=== PATIENT | male | born 1950 | race Caucasian/White ===

== ENCOUNTER 2019-06-11 21:33 | Emergency (ER) | payer MEDICARE, MEDICAID, SELFPAY ==
--- NOTE | ~2019-06-11 | XR_ITS ---
XR chest 2V 06/11/2019 22:21 Indication: Cough and weakness Procedure: AP and lateral views of the chest Comparison: No prior studies for comparison. Findings: Cardiomegaly. There is a small amount of fluid in the fissure on the right. No focal pneumo kelsie, edema, pneumothorax. Impression: 1: Small right pleural effusion. 2: Cardiomegaly. Reviewed, dictated and finalized at location A. Impression: 1: Small right pleural effusion. 2: Cardiomegaly.
[2019-06-11 21:38] VITALS: BP 110/55; PULSE 63; PULSE 67; RESP 18; TEMP 36.4; O2SAT 98
--- NOTE | 2019-06-11 21:57 | ED.WEAKNESS ---
HPI - Weakness General Chief complaint: Weakness Stated complaint: retaining fluid Time Seen by Provider: 06/11/19 21:45 Source: patient, EMS and RN notes reviewed Mode of arrival: EMS Limitations: no limitations History of Present Illness HPI Narrative: Pt is a 69 y/o male presenting to the ED via EMS c/o generalized weakness. Pt reports he has been experiencing generalized weakness for not too long . Pt also reports cough, mild SOB, and mild VALENZUELA, but denies fever, CP, ABD pain, N/V, or diarrhea. Pt states his PCP is Dr. Moses. EMS reports the pt's custodial residence of [facility] have noticed the pt is acting strangely to the staff and is weaker than normal. Per EMS, the pt is normally oriented x2 and has frequent UTI's due to having a terminal make up operator Cazares in place. Pt is a poor historian. Onset (ago): unknown Location: generalized Associated symptoms: headaches (Mild) and other (Cough; Mild SOB) Related Data Home Medications Medication Instructions Recorded Confirmed acetaminophen 325 mg PO ONCE 06/11/19 amlodipine 5 mg PO BID 06/11/19 aripiprazole [Abilify] 2 mg PO DAILY 06/11/19 bisacodyl 5 mg PO ONCE 06/11/19 cholecalciferol (vitamin D3) unit 06/11/19 ferrous sulfate 325 mg PO DAILY 06/11/19 folic acid 1 mg PO DAILY 06/11/19 glucagon 1 mg SUBCUT Q20M PRN 06/11/19 insulin glargine [Lantus U-100 SUBCUT 06/11/19 Insulin] insulin lispro [Humalog U-100 06/11/19 Insulin] lisinopril 10 mg PO BID 06/11/19 melatonin 3 mg PO HS PRN 06/11/19 memantine-donepezil [Namzaric] PO 06/11/19 metoclopramide HCl 10 mg PO Q6H PRN 06/11/19 nitroglycerin 0.4 mg SUBLINGUAL ONCE 06/11/19 pregabalin [Lyrica] 200 mg PO HS 06/11/19 Allergies Allergy/AdvReac Type Severity Reaction Status Date / Time aspirin Allergy Unknown Verified 06/11/19 21:47 codeine Allergy Unknown Verified 06/11/19 21:47 ketoconazole Allergy Unknown Verified 06/11/19 21:47 Penicillins Allergy Unknown Verified 06/11/19 21:47 propoxyphene Allergy Unknown Verified 06/11/19 21:47 Review of Systems Review of Systems: All systems reviewed & are unremarkable except as noted in HPI and below Constitutional: Constitutional: Denies fever(s) and Reports weakness (Generalized) Cardiovascular: Cardiovascular: Denies chest pain Respiratory: Respiratory: Reports cough and Reports dyspnea (Mild) Gastrointestinal: Gastrointestinal: Denies abdominal pain, Denies diarrhea, Denies nausea and Denies vomiting Neurologic: Reports headache(s) (Mild) [facility] Past Medical History Medical History A-fib BPH (benign prostatic hyperplasia) CAD (coronary artery disease) CHF (congestive heart failure) CKD (chronic kidney disease) COPD (chronic obstructive pulmonary disease) Dementia Depression Cazares catheter in place GERD (gastroesophageal reflux disease) HLD (hyperlipidemia) HTN (hypertension) Peripheral neuropathy Type II diabetes mellitus Vitamin D deficiency Surgical History Surgical History History of cholecystectomy History of partial colectomy History of right below knee amputation Family History Family History Sibling Family history of thyroid disease Family history of obesity Cerebrovascular accident Family history of chronic obstructive pulmonary disease Family history of diabetes mellitus in first degree relative Father Family history of arthritis Family history of lung disease Mother Family history of heart disease in male family member before age 55 Social History Social History Smoking status: Never smoker Alcohol intake: never Gender identity (if verbalized by the patient): Male Exam Const: General: cooperative, no acute distress and alert Nutritional Appearance: well nourished Orientation/consciousness: patient oriented x3 L
--- NOTE | 2019-06-11 22:08 | ECG_ITS ---
Measurements Intervals [place] Rate: 61 P: 57 OK: 235 QRS: 34 QRSD: 128 T: 39 QT: 392 QTc: 397 Interpretive Statements SINUS RHYTHM WITH FIRST DEGREE AV BLOCK RSR' IN V1 OR V2, CONSIDER RIGHT VENTRICULAR HYPERTROPHY OR RIGHT VCD NONSPECIFIC T-WAVE ABNORMALITY- ANTERIOR LEADS ABNORMAL ECG Electronically Signed On 06-12-2019 8:27:57 CDT by Bridger Bro D.O.
[2019-06-11] MEDS: ACETAMINOPHEN 500 MG TABLET 1000 MG PO (22:29)
[2019-06-11 22:50] LABS: Basophils Percent Auto 0.5 % (0.2-1.2); Eosinophils Absolute Auto 0.2 K/mm3 (0-0.3); Eosinophils Percent Auto 2.4 % (0-4.4); Hematocrit 31.6 % (42.0-52.0); Hemoglobin 9.1 g/dL (14.0-18.0); Immature Granulocyte Absolute 0.17 K/mm3 (0.00-0.031); Lymphocytes Absolute Auto 1.58 K/mm3 (0.9-3.2); Mean Corpuscular HGB Conc 28.8 g/dl (32-36); Mean Corpuscular Hemoglobin 28.7 pg (26-34); Mean Corpuscular Volume 99.7 fl (80-100); Mean Platelet Volume 10.3 fl (7.4-10.4); Monocytes Absolute Auto 0.9 K/mm3 (0.1-0.6); Monocytes Percent Auto 10.3 % (2.6-8.5); Neutrophils Absolute Auto 5.5 K/mm3 (1.3-6.7); Neutrophils Percent Auto 65.8 % (45.5-73.1); Platelet Count Result 262 k/mm3 (150-375); Red Blood Count 3.17 M/mm3 (4.6-6.20); White Blood Count 8.3 K/mm3 (4.5-10.0)
[2019-06-11 22:55] LABS: Platelet Estimate Adequate (Adequate)
[2019-06-11 22:56] LABS: Hypochromasia 1+ (NORMAL)
[2019-06-11 22:57] VITALS: BP 115/77; PULSE 65; RESP 18; O2SAT 97
[2019-06-11 23:00] LABS: INR 1.1; Prothrombin Time 13.7 Seconds (11.1-14.7)
[2019-06-11 23:01] LABS: Lactic Acid Reflex 0.8 mmol/L (0.7-2.1); Partial Thromboplastin Time 36.6 SECONDS (22.3-36.8)
[2019-06-11 23:02] LABS: Alanine Aminotransferase 8 U/L (4-50); Albumin Level 3.6 g/dL (3.5-5.1); Alkaline Phosphatase 75 U/L (38-126); Aspartate Amino Transferase 11 U/L (17-59); Bilirubin,Total 0.3 mg/dL (0.2-1.3); Blood Urea Nitrogen 43 mg/dL (9-20); Calcium 9.2 mg/dL (8.4-10.2); Carbon Dioxide 23 mmol/L (22-30); Chloride 111 mmol/L (98-107); Estimated Glomerular Filt Rate 33; Glucose 61 mg/dL (75-110); Magnesium 2.4 mg/dL (1.6-2.3); Potassium 4.7 mmol/L (3.4-5.0); Sodium 143 mmol/L (137-145)
[2019-06-11 23:13] LABS: NT Pro B Type Natriuretic Pept 299 PG/ML (5-100); Troponin I < 0.012 ng/mL (0.000-0.034)
[2019-06-11 23:13] LABS: Add Urine Microscopic? YES; Appearance Urine Cloudy (Clear); Bacteria Urine 1+ /hpf; Bilirubin Urine Negative (Negative); Blood Urine 2+ (Negative); Color Urine Yellow (Yellow); Glucose Urine UA Negative (Negative); Ketones Urine Negative (Negative); Leukocyte Esterase Ur 3+ LEU/UL (Negative); Mucus Urine Rare /lpf; Nitrate Urine Negative (Negative); Protein Urine 3+ mg/dL (Negative); RBC Urine >75 /hpf (0-2); Specific Grav Ur 1.013 (1.001-1.035); Squamous Epithelial Cell Urine Many /hpf (Few); Urobilinogen Urine Negative mg/dL (<2.0); WBC Urine >75 /hpf
[2019-06-11 23:52] VITALS: BP 134/56; PULSE 60; RESP 18; O2SAT 96
[2019-06-12 01:18] VITALS: BP 145/54; PULSE 64; RESP 14; O2SAT 95
--- NOTE | 2019-06-12 03:33 | PC.NURSE ---
Called [facility] to transport patient back to [facility]....no truck available. Called [facility] to transport patient...ETA [id number]
[2019-06-12 04:12] VITALS: BP 142/72; PULSE 64; RESP 14; O2SAT 96
[2019-06-12 06:00] VITALS: BP 128/91; PULSE 63; RESP 18; O2SAT 95
[2019-06-12 07:06] VITALS: TEMP 36.4
[2019-06-12 07:46] VITALS: BP 156/64; PULSE 68; RESP 18; O2SAT 96
--- NOTE | 2019-06-12 10:06 | PC.NURSE ---
Patient transferred to [facility] via [facility] at this time.
== END 2019-06-12 10:07 ==
PROVIDERS: Emergency Provider Emergency Medicine
DX: T83.511A Infection and inflammatory reaction due to indwelling urethral catheter, initial encounter (principal); I48.91 Unspecified atrial fibrillation; E11.22 Type 2 diabetes mellitus with diabetic chronic kidney disease; I13.0 Hypertensive heart and chronic kidney disease with heart failure and stage 1 through stage 4 chronic kidney disease, or unspecified chronic kidney disease; N18.9 Chronic kidney disease, unspecified; N40.0 Benign prostatic hyperplasia without lower urinary tract symptoms; I25.10 Atherosclerotic heart disease of native coronary artery without angina pectoris; I50.9 Heart failure, unspecified; J44.9 Chronic obstructive pulmonary disease, unspecified; F03.90 Unspecified dementia, unspecified severity, without behavioral disturbance, psychotic disturbance, mood disturbance, and anxiety; K21.9 Gastro-esophageal reflux disease without esophagitis; E55.9 Vitamin D deficiency, unspecified; E11.42 Type 2 diabetes mellitus with diabetic polyneuropathy; Z90.49 Acquired absence of other specified parts of digestive tract; Z89.511 Acquired absence of right leg below knee; I44.0 Atrioventricular block, first degree; R94.31 Abnormal electrocardiogram [ECG] [EKG]; D64.9 Anemia, unspecified; Z79.4 Long term (current) use of insulin
CPT/HCPCS: 36415; 71046; 80053; 81001; 83605; 83735; 83880; 84443; 84484; 85025; 85610; 85730; 87077; 87086; 87088; 87186; 87804; 93005; 96365; 99284; A9270; J0696

== ENCOUNTER 2019-07-09 18:31 | Inpatient (IN) | payer MEDICARE, MEDICAID, SELFPAY ==
[2019-07-09] VITALS (8 sets, daily range): BP systolic 82–160; BP diastolic 45–144; PULSE 80–92; RESP 13–22; TEMP 36.6–37.7; O2SAT 92–100
--- NOTE | ~2019-07-09 | XR_ITS ---
EXAMINATION: XR chest 1V portable EXAM DATE: 07/09/2019 19:26 INDICATION: Shortness of air, fever and weakness. TECHNIQUE: Frontal and lateral projections of the chest obtained and reviewed. Comparison is made to prior examination from 06/11/2019. FINDINGS: The lungs are clear. There are no pleural effusions. Cardiac silhouette is prominent but magnified on this AP technique. Cardiac silhouette is stable in size compared to prior exam. There is no pneumothorax suspected. The bones and soft tissues are unremarkable. There is no significan t interval change. There are cholecystectomy clips. IMPRESSION: No acute cardiopulmonary findings. Reviewed, dictated and finalized at location A.
--- NOTE | 2019-07-09 18:47 | ED.SOB ---
HPI - SOB/Dyspnea General Chief Complaint: Fever Stated Complaint: sob Time Seen by Provider: 07/09/19 18:48 Source: patient and EMS Mode of arrival: EMS Limitations: dementia History of Present Illness HPI Narrative: The pt is a 69 y/o male who presents to the ED, via EMS, c/o SOB onset unknown. Per EMS, pt has been living with another resident in his room at [facility]. They note that he had a low oxygen saturation, and state that he is not on oxygen typically. Pt received 2L NC en route. The pt reports pain all over. Pt also noted as having a fever. The HPI is limited due to the pt's PMHx of dementia. MD elicited complaint: shortness of breath Pertinent past history: COPD Onset (ago): unknown Associated symptoms: fever (Per EMS) and other ( Pain all over ) Treatment prior to arrival: oxygen Related Data Home Medications Medication Instructions Recorded Confirmed acetaminophen 325 mg PO ONCE 06/11/19 amlodipine 5 mg PO BID 06/11/19 aripiprazole [Abilify] 2 mg PO DAILY 06/11/19 bisacodyl 5 mg PO ONCE 06/11/19 cholecalciferol (vitamin D3) unit 06/11/19 ferrous sulfate 325 mg PO DAILY 06/11/19 folic acid 1 mg PO DAILY 06/11/19 glucagon 1 mg SUBCUT Q20M PRN 06/11/19 insulin glargine [Lantus U-100 SUBCUT 06/11/19 Insulin] insulin lispro [Humalog U-100 06/11/19 Insulin] lisinopril 10 mg PO BID 06/11/19 melatonin 3 mg PO HS PRN 06/11/19 memantine-donepezil [Namzaric] PO 06/11/19 metoclopramide HCl 10 mg PO Q6H PRN 06/11/19 nitroglycerin 0.4 mg SUBLINGUAL ONCE 06/11/19 pregabalin [Lyrica] 200 mg PO HS 06/11/19 Allergies Allergy/AdvReac Type Severity Reaction Status Date / Time aspirin Allergy Unknown Verified 06/11/19 21:47 codeine Allergy Unknown Verified 06/11/19 21:47 ketoconazole Allergy Unknown Verified 06/11/19 21:47 Penicillins Allergy Unknown Verified 06/11/19 21:47 propoxyphene Allergy Unknown Verified 06/11/19 21:47 Review of Systems Review of Systems: ROS unobtainable: Yes other (Limited due to dementia. ) Constitutional: Constitutional: Reports fever(s) (Per EMS) Respiratory: Respiratory: Reports dyspnea Musculoskeletal: Musculoskeletal: Reports other (Pain all over ) [facility] Past Medical History Medical History A-fib BPH (benign prostatic hyperplasia) CAD (coronary artery disease) CHF (congestive heart failure) CKD (chronic kidney disease) COPD (chronic obstructive pulmonary disease) Dementia Depression Cazares catheter in place GERD (gastroesophageal reflux disease) HLD (hyperlipidemia) HTN (hypertension) Peripheral neuropathy Type II diabetes mellitus Vitamin D deficiency Surgical History Surgical History History of cholecystectomy History of partial colectomy History of right below knee amputation Social History Social History (Updated 07/09/19 @ 19:00 by Alphonse Smith) Smoking status: Never smoker Alcohol intake: never Additional living arrangements comments: [facility] Gender identity (if verbalized by the patient): Male Exam Narrative: Exam Narrative: GENERAL: ill-appearing, obese, and in no acute distress. HEAD: Normocephalic, atraumatic. ENT: Dry mucous membranes. CHEST: Clear to auscultation. No respiratory distress. HEART: Regular rate and rhythm. Normal peripheral pulses. ABDOMEN: Soft, nontender, nondistended. EXTREMITIES: Normal ROM of BUE, right BKA. SKIN: Warm, dry, no rash. NEURO: Alert and oriented x 3, confused about details as to why he is here. Course Course Emergency Course: Admit to hospitalist, cefepime ordered. 2L NS bolused. Vital Signs Vital signs: Vital Signs Temperature 99.9 F H 07/09/19 18:42 Pulse Rate 92 07/09/19 18:42 Respiratory Rate 20 07/09/19 18:42 Blood Pressure 160/144 H 07/09/19 18:42 Pulse Oximetry 98 07/09/19 18:42 Temperature 98.8 F 07/09/19
--- NOTE | 2019-07-09 19:00 | PC.NURSE ---
Assumed care of pt at this time. report from RUSLAN Velazquez
--- NOTE | 2019-07-09 19:05 | ECG_ITS ---
Measurements Intervals [place] Rate: 92 P: 40 DE: 218 QRS: 36 QRSD: 125 T: 36 QT: 346 QTc: 430 Interpretive Statements SINUS RHYTHM WITH FIRST DEGREE AV BLOCK INTRAVENTRICULAR CONDUCTION DELAY ABNORMAL ECG Electronically Signed On 07-09-2019 20:09:26 CDT by Bridger Bro D.O.
--- NOTE | 2019-07-09 19:37 | PC.NURSE ---
pt stuck 2x for IV no success. Blood draw at bedside at this time.
--- NOTE | 2019-07-09 20:00 | PC.NURSE ---
Pt little catheter clamped off to obtain urine sample.
[2019-07-09 20:03] LABS: Basophils Percent Auto 0.2 % (0.2-1.2); Hematocrit 33.5 % (42.0-52.0); Hemoglobin 9.7 g/dL (14.0-18.0); Immature Granulocyte Absolute 0.17 K/mm3 (0.00-0.031); Lymphocytes Absolute Auto 0.35 K/mm3 (0.9-3.2); Lymphocytes Percent Auto 2.1 % (18.3-44.2); Mean Corpuscular Hemoglobin 28.6 pg (26-34); Mean Corpuscular Volume 98.8 fl (80-100); Mean Platelet Volume 11.2 fl (7.4-10.4); Monocytes Absolute Auto 0.9 K/mm3 (0.1-0.6); Monocytes Percent Auto 5.6 % (2.6-8.5); Neutrophils Absolute Auto 15.3 K/mm3 (1.3-6.7); Neutrophils Percent Auto 91.1 % (45.5-73.1); Platelet Count Result 251 k/mm3 (150-375); Red Blood Count 3.39 M/mm3 (4.6-6.20); Red Cell Distribution Width 14.5 % (11.5-14.5); White Blood Count 16.8 K/mm3 (4.5-10.0)
[2019-07-09 20:17] LABS: Alanine Aminotransferase 8 U/L (4-50); Albumin Level 3.4 g/dL (3.5-5.1); Alkaline Phosphatase 78 U/L (38-126); Aspartate Amino Transferase 22 U/L (17-59); Bilirubin,Total 0.2 mg/dL (0.2-1.3); Blood Urea Nitrogen 57 mg/dL (9-20); Calcium 8.6 mg/dL (8.4-10.2); Carbon Dioxide 16 mmol/L (22-30); Chloride 114 mmol/L (98-107); Estimated Glomerular Filt Rate 24; Glucose 201 mg/dL (75-110); Potassium 5.3 mmol/L (3.4-5.0); Sodium 142 mmol/L (137-145)
--- NOTE | 2019-07-09 20:20 | PC.NURSE ---
Pt has no urine output at this time. EDP notified.
[2019-07-09] MEDS: SODIUM CHLORIDE 0.9% IV 1,000 ML 999 ML IV CONT ×2 (20:25→21:14)
--- NOTE | 2019-07-09 21:09 | PC.NURSE ---
No urine produced at this time. edp notified
[2019-07-09 22:44] LABS: Add Urine Microscopic? YES; Appearance Urine Turbid (Clear); Bacteria Urine 3+ /hpf; Bilirubin Urine Negative (Negative); Blood Urine 3+ (Negative); Color Urine Yellow (Yellow); Glucose Urine UA Negative (Negative); Ketones Urine Trace mg/dL (Negative); Leukocyte Esterase Ur 3+ LEU/UL (Negative); Mucus Urine Few /lpf; Nitrate Urine Negative (Negative); Protein Urine 3+ mg/dL (Negative); RBC Urine >75 /hpf (0-2); Specific Grav Ur 1.017 (1.001-1.035); Squamous Epithelial Cell Urine Many /hpf (Few); Urobilinogen Urine Negative mg/dL (<2.0); WBC Urine >75 /hpf
[2019-07-10 00:12] VITALS: BP 103/48; PULSE 75; RESP 15; O2SAT 93
--- NOTE | 2019-07-10 00:38 | ADMGEN ---
This patient, Baljeet Birmingham, was admitted to Medical Room 248-. Patient/family oriented to hospital policies and general routines including ID bracelet, bed and alarms, visiting hours, pain management, procedures, bathroom and other care routines, personal items, smoking policy, room service/diet, and visiting hours. Valuables list has been completed. Information on how to activate the Rapid Response Team has been discussed. Patient/Family are encouraged to report perceived risks to care and to ask questions if they do not understand what they are told or what they should do.
[2019-07-10] MEDS: SODIUM CHLORIDE 0.9% IV 1,000 ML 125 ML IV CONT ×2 (00:41→07:58)
[2019-07-10 00:46] VITALS: BP 106/43; PULSE 74; RESP 12; TEMP 36.6; O2SAT 96; BMI 42.7
--- NOTE | 2019-07-10 01:01 | PM.IMHP ---
H&P: HPI History of Present Illness Chief complaint: Fever and shortness of breath Narrative: Date and time of patient contact: 07/10/2019 at 1:50 a.m. Baljeet Birmingham is a 69 year old male with a past medical history of dementia, insulin-dependent diabetes, chronic indwelling Cazares catheter who presented to the ER from [facility] via EMS due to low oxygen saturations and fever. The patient's temperature on arrival to the ER was 99.9?. To the ER his blood pressure was elevated to 160/144 but repeat blood pressure was as low as 82/58. However after 2 L of isotonic fluids the patient's systolic blood pressure returned to the 100s to 110s. When the patient arrived to the ER he had a Cazares catheter in place from the care home. But the patient was not having any urine output from the Cazares catheter. The ER physician ordered the Cazares catheter to be exchanged at which time the patient had adequate urine output. The patient had been evaluated in the ER on 06/11/2019 for generalized weakness and was diagnosed with a urinary tract infection. His urine culture at that time grew out Providencia stuartii resistant to ampicillin, amoxicillin, cefazolin, Cipro, Levaquin, gentamicin, nitrofurantoin, and tobramycin. It was indeterminate to Rocephin and imipenem. There is sensitive to Rocephin, Zosyn and Bactrim. The patient had been discharged from the ER back to the care home on cefdinir 300 mg b.i.d. for 10 days. EMS/care home had reported a low SpO2 at the time of evaluation. However when the patient arrived to the ER the patient was satting 96% on room air and has not been hypoxic since arrival. The patient is only oriented to person at the time of my evaluation is unable to provide any further history. Source of information is ER records and past medical records. Home medications have yet to be reconciled. The list that was sent to the ER from the care home was misplaced and the fax machine at the care home as currently broke. Review of Systems Review of Systems: ROS unobtainable: Yes unobtainable due to mental status PMFSH Past Medical History Medical History (Updated 07/10/19 @ 06:17 by Sanjuanita Brewster DO) Atrial fibrillation BPH (benign prostatic hyperplasia) CAD (coronary artery disease) CHF (congestive heart failure) Chronic indwelling Cazares catheter CKD (chronic kidney disease) With baseline creatinine outside labs of 1.8 COPD (chronic obstructive pulmonary disease) Dementia Depression Essential hypertension GERD (gastroesophageal reflux disease) Hyperlipidemia Peripheral neuropathy Type II diabetes mellitus Vitamin D deficiency Surgical History Surgical History History of cholecystectomy History of partial colectomy History of right below knee amputation Family History Family History (Updated 07/10/19 @ 01:36 by Sanjuanita Brewster DO) Sibling Cerebrovascular accident Diabetes mellitus COPD (chronic obstructive pulmonary disease) Obesity Thyroid disease Father Lung disease Mother Heart disease Social History Social History (Updated 07/10/19 @ 06:09 by Sanjuanita Brewster DO) Social History: Primary care physician: Dr. Savage Moses Code status: Full code per EMR Smoking packs per day: 1 Smoking cigarettes per day: 20.0 Years smoked: 30 Smoking pack-years: 30.00 Smoking status: Former smoker Alcohol intake: unknown Substance use: unknown Substance use type: does not use Living arrangements: care home Additional living arrangements comments: [facility] Gender identity (if verbalized by the patient): Male Spiritual care concerns: No Meds Home Medications and Allergies Home Medications Medication Instructions Recorded Confirmed Type acetaminophen 325 mg PO ONCE 06/11/19 History amlodipine 5 mg PO BID 06/11/19 History aripiprazole [Abilify] 2 mg PO DAILY
--- NOTE | 2019-07-10 02:02 | PC.NURSE ---
Med list is missing in patients packet from ER. Called ER nurse Vee and she is unsure where med list went. Vee said Day shift Nurse entered meds and had patients med list. Spoke with ER charge nurse and she is going to look for it. At this time no med list has been found. Called [facility] and there fax machine is down at this time. Will call shelter in AM to see if Fax machine is working.
[2019-07-10 06:00] VITALS: BP 116/44; PULSE 63; RESP 16; TEMP 36.2; O2SAT 95
[2019-07-10 06:17] LABS: Glucose Point of Care 114 (65-105)
[2019-07-10 08:02] LABS: Glucose Point of Care 106 (65-105)
[2019-07-10 08:53] LABS: Hematocrit 30.9 % (42.0-52.0); Hemoglobin 8.9 g/dL (14.0-18.0); Mean Corpuscular HGB Conc 28.8 g/dl (32-36); Mean Corpuscular Hemoglobin 28.9 pg (26-34); Mean Corpuscular Volume 100.3 fl (80-100); Mean Platelet Volume 11.6 fl (7.4-10.4); Platelet Count Result 223 k/mm3 (150-375); Red Blood Count 3.08 M/mm3 (4.6-6.20); Red Cell Distribution Width 14.9 % (11.5-14.5); White Blood Count 13.4 K/mm3 (4.5-10.0)
[2019-07-10 09:04] LABS: Blood Urea Nitrogen 59 mg/dL (9-20); Calcium 8.1 mg/dL (8.4-10.2); Carbon Dioxide 19 mmol/L (22-30); Chloride 115 mmol/L (98-107); Estimated CRCL calculation 41 ml/min; Estimated Glomerular Filt Rate 28; Glucose 118 mg/dL (75-110); Magnesium 2.1 mg/dL (1.6-2.3); Potassium 4.9 mmol/L (3.4-5.0); Sodium 141 mmol/L (137-145)
[2019-07-10] MEDS: ACETAMINOPHEN 325 MG TABLET 650 MG PO (09:36)
[2019-07-10] MEDS: FUROSEMIDE INJ 40 MG/4 ML VIAL 20 MG IV PUSH (10:46)
[2019-07-10 11:28] LABS: Glucose Point of Care 187 (65-105)
--- NOTE | 2019-07-10 11:37 | PM.IMPN ---
Progress Note: A&P Assessment and Plan (1) Urinary tract infection: Qualifiers: Hematuria presence: without hematuria Urinary tract infection type: site unspecified Qualified Code(s): N39.0 - Urinary tract infection, site not specified Code(s): N39.0 - Urinary tract infection, site not specified Status: Acute Assessment and Plan: The patient's last urine culture grew out bacteria that was multidrug resistant. Patient has been placed on cefepime as this was the only and the bacteria was sensitive to that did not conflict with the patient's allergies. 07/10/19 11:37 patient is 69-year-old male a resident of [facility] morbidly obese with history of insulin-dependent diabetes, dementia, chronic Cazares catheter, patient was sent to emergency department with complaint of shortness of breath and desaturation, is a poor historian denies any with cough shortness of breath presently, and recently was found to have UTI with multidrug resistant bacteria currently patient is suspected to have a UTI and patient is started on Cefepim this is the only antibiotic is compatible with his allergies and resistant profile, clinically patient though denies any cough or shortness of breath lung sounds quite wet, he has acute on chronic kidney disease with stage III, will will gently diurese him with IV Lasix 20 mg and closely monitor his kidney function input and output, patient chest x-ray does not show any cardiopulmonary pathology will continue to monitor patient will benefit from PT OT and further recommendation to follow (2) Acute renal failure superimposed on stage 3 chronic kidney disease: Code(s): N17.9 - Acute kidney failure, unspecified; N18.3 - Chronic kidney disease, stage 3 (moderate) Status: Acute Assessment and Plan: The patient received 2 L of isotonic fluids in the ER due to hypotension that subsequently resolved. Will continue gentle IV fluid hydration and repeat BMP this a.m., plan is above (3) Diabetes mellitus with hyperglycemia: Code(s): E11.65 - Type 2 diabetes mellitus with hyperglycemia Status: Acute Assessment and Plan: Will place patient on moderate sliding scale insulin with Accu-Cheks AC/HS. The patient's home medications still need to be reviewed., will continue home regimen and monitor Subjective Date/time seen: 07/10/19 11:37 patient is 69-year-old male a resident of [facility] morbidly obese with history of insulin-dependent diabetes, dementia, chronic Cazares catheter, patient was sent to emergency department with complaint of shortness of breath and desaturation, is a poor historian denies any with cough shortness of breath presently, and recently was found to have UTI with multidrug resistant bacteria currently patient is suspected to have a UTI and patient is started on Cefepim this is the only antibiotic is compatible with his allergies and resistant profile, clinically patient though denies any cough or shortness of breath lung sounds quite wet, he has acute on chronic kidney disease with stage III, will will gently diurese him with IV Lasix 20 mg and closely monitor his kidney function input and output, patient chest x-ray does not show any cardiopulmonary pathology will continue to monitor patient will benefit from PT OT and further recommendation to follow Review of Systems Review of Systems: All systems reviewed & are unremarkable except as noted in HPI and below Exam Narrative: Exam Narrative: Morbidly obese Const: General: comfortable and no acute distress HENMT: General nose exam: Normal nares present Mouth: Yes moist mucous membranes Eyes: General: appearance normal, both eyes and all related structures Sclera: sclerae normal Neck: Neck: supple Resp: Other: Bilateral fair air entry with rales and rhonchi Cardio: Rate: regular rate Rhythm: regular rhythm GI: Auscultation: normal bowel sounds Skin: General skin exam: normal color
[2019-07-10] MEDS: PREGABALIN 50 MG CAPSULE 200 MG PO ×2 (11:54→21:13)
[2019-07-10] MEDS: MORPHINE SULFATE 4 MG/ML INJ IV PUSH (12:51)
[2019-07-10 14:00] VITALS: BP 126/41; PULSE 59; RESP 20; TEMP 36.5; O2SAT 95
[2019-07-10] MEDS: SENNA/DOCUSATE SODIUM TABLET 1 TAB PO (16:16)
[2019-07-10] MEDS: OMEGA 3 POLYUNSAT FATTY ACIDS 1 GM CAP PO (16:16)
[2019-07-10 16:26] LABS: Glucose Point of Care 150 (65-105)
[2019-07-10] MEDS: RIVAROXABAN 15 MG TABLET PO (17:01)
[2019-07-10] MEDS: TAMSULOSIN HCL 0.4 MG CAPSULE PO (17:01)
[2019-07-10] MEDS: MELATONIN 3 MG TABLET PO (21:13)
[2019-07-10] MEDS: INSULIN GLARGINE (*BKC) 100 UNITS/ML 32 UNITS SUB-Q (21:15)
[2019-07-10] MEDS: ARIPIPRAZOLE 2 MG TABLET 1 MG PO (21:18)
[2019-07-10 21:36] VITALS: BP 94/45; PULSE 63; RESP 20; TEMP 36.2; O2SAT 95
[2019-07-10 21:37] LABS: Glucose Point of Care 173 (65-105)
[2019-07-11 05:27] LABS: Blood Urea Nitrogen 55 mg/dL (9-20); Calcium 7.8 mg/dL (8.4-10.2); Carbon Dioxide 21 mmol/L (22-30); Chloride 112 mmol/L (98-107); Estimated CRCL calculation 45 ml/min; Estimated Glomerular Filt Rate 32; Glucose 118 mg/dL (75-110); Potassium 4.6 mmol/L (3.4-5.0); Sodium 138 mmol/L (137-145)
[2019-07-11 05:52] VITALS: BP 98/53; PULSE 60; RESP 16; TEMP 36.1; O2SAT 95
[2019-07-11 08:00] VITALS: PULSE 64; RESP 18; O2SAT 95
[2019-07-11] MEDS: FUROSEMIDE INJ 40 MG/4 ML VIAL 20 MG IV PUSH (08:06)
[2019-07-11] MEDS: SENNA/DOCUSATE SODIUM TABLET 1 TAB PO ×2 (08:10→16:52)
[2019-07-11] MEDS: SERTRALINE HCL 50 MG TABLET 200 MG PO (08:10)
[2019-07-11] MEDS: ASCORBIC ACID 500 MG TABLET PO (08:10)
[2019-07-11] MEDS: FOLIC ACID 1 MG TABLET PO (08:10)
[2019-07-11] MEDS: OMEGA 3 POLYUNSAT FATTY ACIDS 1 GM CAP PO ×2 (08:10→16:52)
[2019-07-11] MEDS: FERROUS SULFATE 324 MG TABLET PO (08:10)
[2019-07-11] MEDS: CHOLECALCIFEROL 1,000 UNIT TABLET 1000 UNITS PO (08:11)
[2019-07-11] MEDS: polyethylene glycoL 3350 17 GM POWD.PACK PO (08:12)
[2019-07-11 08:19] VITALS: BP 117/47; PULSE 64; RESP 18; O2SAT 95
[2019-07-11] MEDS: AMLODIPINE BESYLATE 5 MG TABLET 10 MG PO (08:21)
[2019-07-11] MEDS: ACETAMINOPHEN 325 MG TABLET 650 MG PO ×2 (08:21→14:14)
[2019-07-11] MEDS: lisinopriL 10 MG TABLET PO (08:22)
[2019-07-11] MEDS: PREGABALIN 50 MG CAPSULE 200 MG PO ×2 (09:56→21:26)
[2019-07-11 11:30] LABS: Glucose Point of Care 102 (65-105)
[2019-07-11 11:31] LABS: Glucose Point of Care 155 (65-105)
--- NOTE | 2019-07-11 12:32 | PM.IMPN ---
Progress Note: A&P Assessment and Plan (1) Urinary tract infection: Qualifiers: Hematuria presence: without hematuria Urinary tract infection type: site unspecified Qualified Code(s): N39.0 - Urinary tract infection, site not specified Code(s): N39.0 - Urinary tract infection, site not specified Status: Acute Assessment and Plan: The patient's last urine culture grew out bacteria that was multidrug resistant. Patient has been placed on cefepime as this was the only and the bacteria was sensitive to that did not conflict with the patient's allergies. 07/10/19 11:37 patient is 69-year-old male a resident of shelter morbidly obese with history of insulin-dependent diabetes, dementia, chronic Cazares catheter, patient was sent to emergency department with complaint of shortness of breath and desaturation, is a poor historian denies any with cough shortness of breath presently, and recently was found to have UTI with multidrug resistant bacteria currently patient is suspected to have a UTI and patient is started on Cefepim this is the only antibiotic is compatible with his allergies and resistant profile, on 07/10 clinically patient though denies any cough or shortness of breath lung sounds quite wet, he has acute on chronic kidney disease with stage III, will gently diurese him with IV Lasix 20 mg and closely monitored his kidney function input and output, patient chest x-ray does not show any cardiopulmonary pathology will continue to monitor patient will benefit from PT OT and further recommendation to follow, today patient still somewhat congested not as bad as yesterday will give him 1 time dose of IV Lasix 20 mg continue to monitor I&Os, will reassess him tomorrow and further recommendation to follow, his preliminary urine culture is growing gram-negative bacilli will continue present management and follow up on sensitivity identification (2) Acute renal failure superimposed on stage 3 chronic kidney disease: Code(s): N17.9 - Acute kidney failure, unspecified; N18.3 - Chronic kidney disease, stage 3 (moderate) Status: Acute Assessment and Plan: The patient received 2 L of isotonic fluids in the ER due to hypotension that subsequently resolved. Will continue gentle IV fluid hydration and repeat BMP this a.m., plan is above (3) Diabetes mellitus with hyperglycemia: Code(s): E11.65 - Type 2 diabetes mellitus with hyperglycemia Status: Acute Assessment and Plan: Will place patient on moderate sliding scale insulin with Accu-Cheks AC/HS. The patient's home medications still need to be reviewed., will continue home regimen and monitor Subjective Date/time seen: 07/10/19 11:37 patient is 69-year-old male a resident of shelter morbidly obese with history of insulin-dependent diabetes, dementia, chronic Cazares catheter, patient was sent to emergency department with complaint of shortness of breath and desaturation, is a poor historian denies any with cough shortness of breath presently, and recently was found to have UTI with multidrug resistant bacteria currently patient is suspected to have a UTI and patient is started on Cefepim this is the only antibiotic is compatible with his allergies and resistant profile, on 07/10 clinically patient though denies any cough or shortness of breath lung sounds quite wet, he has acute on chronic kidney disease with stage III, will gently diurese him with IV Lasix 20 mg and closely monitored his kidney function input and output, patient chest x-ray does not show any cardiopulmonary pathology will continue to monitor patient will benefit from PT OT and further recommendation to follow, today patient still somewhat congested not as bad as yesterday will give him 1 time dose of IV Lasix 20 mg continue to monitor I&Os, will reassess him tomorrow and further recommendation to follow, his preliminary urine culture is growing gram-negative bacilli will continue p
[2019-07-11 14:00] VITALS: BP 136/54; PULSE 67; RESP 18; TEMP 36.4; O2SAT 98
[2019-07-11 16:30] LABS: Glucose Point of Care 139 (65-105)
[2019-07-11] MEDS: TAMSULOSIN HCL 0.4 MG CAPSULE PO (16:52)
[2019-07-11] MEDS: RIVAROXABAN 15 MG TABLET PO (16:52)
[2019-07-11] MEDS: MORPHINE SULFATE 4 MG/ML INJ IV PUSH (16:59)
[2019-07-11] MEDS: ARIPIPRAZOLE 2 MG TABLET 1 MG PO (21:23)
[2019-07-11] MEDS: MELATONIN 3 MG TABLET PO (21:26)
[2019-07-11] MEDS: INSULIN GLARGINE (*BKC) 100 UNITS/ML 32 UNITS SUB-Q (21:27)
[2019-07-11 21:49] LABS: Glucose Point of Care 131 (65-105)
[2019-07-11 22:00] VITALS: BP 129/52; PULSE 57; RESP 18; TEMP 36.6; O2SAT 97
[2019-07-12 05:38] LABS: Blood Urea Nitrogen 49 mg/dL (9-20); Calcium 8.3 mg/dL (8.4-10.2); Carbon Dioxide 22 mmol/L (22-30); Chloride 111 mmol/L (98-107); Estimated CRCL calculation 52 ml/min; Estimated Glomerular Filt Rate 38; Glucose 102 mg/dL (75-110); Potassium 4.7 mmol/L (3.4-5.0); Sodium 138 mmol/L (137-145)
[2019-07-12 05:59] VITALS: BP 122/50; PULSE 57; RESP 18; TEMP 36.4; O2SAT 98
[2019-07-12 07:35] LABS: Glucose Point of Care 107 (65-105)
[2019-07-12 08:00] VITALS: PULSE 57; RESP 18; O2SAT 98
[2019-07-12] MEDS: polyethylene glycoL 3350 17 GM POWD.PACK PO (08:06)
[2019-07-12] MEDS: AMLODIPINE BESYLATE 5 MG TABLET 10 MG PO (08:06)
[2019-07-12] MEDS: FOLIC ACID 1 MG TABLET PO (08:07)
[2019-07-12] MEDS: SENNA/DOCUSATE SODIUM TABLET 1 TAB PO ×2 (08:07→17:05)
[2019-07-12] MEDS: lisinopriL 10 MG TABLET PO (08:07)
[2019-07-12] MEDS: ASCORBIC ACID 500 MG TABLET PO (08:07)
[2019-07-12] MEDS: CHOLECALCIFEROL 1,000 UNIT TABLET 1000 UNITS PO (08:07)
[2019-07-12] MEDS: SERTRALINE HCL 50 MG TABLET 200 MG PO (08:07)
[2019-07-12] MEDS: PREGABALIN 50 MG CAPSULE 200 MG PO ×2 (08:14→20:47)
[2019-07-12] MEDS: OMEGA 3 POLYUNSAT FATTY ACIDS 1 GM CAP PO ×2 (08:40→17:05)
--- NOTE | 2019-07-12 10:30 | PCSTNOTE ---
The bedside eval was not able to be completed on 07/11/19.
[2019-07-12] MEDS: MORPHINE SULFATE 4 MG/ML INJ IV PUSH (10:50)
[2019-07-12] MEDS: ONDANSETRON INJ 4 MG/2 ML VIAL IV PUSH (10:50)
[2019-07-12 11:27] LABS: Glucose Point of Care 135 (65-105)
[2019-07-12] MEDS: FUROSEMIDE INJ 40 MG/4 ML VIAL 20 MG IV PUSH (11:30)
--- NOTE | 2019-07-12 11:36 | P.CDI_ITS ---
CDI Query Clarification Request -UTI has been documented -Chronic indwelling little catheter has been documented -07/08 urine culture growing >100,000 E Coli, ESBL Please clarify if UTI is: * Due to chronic indwelling catheter * Not due to chronic indwelling catheter * Unable to determine <Linda Leonard RN - Last Filed: 07/12/19 11:38>
--- NOTE | 2019-07-12 11:36 | WPDCDIQUERY2 ---
CDI Query Clarification Request -UTI has been documented -Chronic indwelling little catheter has been documented -07/08 urine culture growing >100,000 E Coli, ESBL Please clarify if UTI is: Due to chronic indwelling catheter Not due to chronic indwelling catheter Unable to determine <Linda Leonard RN - Last Filed: 07/12/19 11:38>
[2019-07-12] MEDS: LIDOCAINE HCL 1% LOCAL INJ 2 ML AMPUL 5 ML INFILTRATE (13:30)
[2019-07-12 14:00] VITALS: BP 120/50; PULSE 65; RESP 16; TEMP 36.1; O2SAT 97
--- NOTE | 2019-07-12 15:11 | PM.DS ---
DS: Diagnosis Admitting Diagnosis Admitting Diagnosis: Urinary tract infection, site not specified Discharge Diagnosis (1) Urinary tract infection: Qualifiers: Hematuria presence: without hematuria Urinary tract infection type: site unspecified Qualified Code(s): N39.0 - Urinary tract infection, site not specified Code(s): N39.0 - Urinary tract infection, site not specified Status: Acute Assessment and Plan: The patient's last urine culture grew out bacteria that was multidrug resistant. Patient has been placed on cefepime as this was the only and the bacteria was sensitive to that did not conflict with the patient's allergies. 07/10/19 11:37 patient is 69-year-old male a resident of residential morbidly obese with history of insulin-dependent diabetes, dementia, chronic Cazares catheter, patient was sent to emergency department with complaint of shortness of breath and desaturation, is a poor historian denies any with cough shortness of breath presently, and recently was found to have UTI with multidrug resistant bacteria currently patient is suspected to have a UTI and patient is started on Cefepim this is the only antibiotic is compatible with his allergies and resistant profile, on 07/10 clinically patient though denies any cough or shortness of breath lung sounds quite wet, he has acute on chronic kidney disease with stage III, will gently diurese him with IV Lasix 20 mg and closely monitored his kidney function input and output, patient chest x-ray does not show any cardiopulmonary pathology will continue to monitor patient will benefit from PT OT and further recommendation to follow, today patient still somewhat congested not as bad as yesterday will give him 1 time dose of IV Lasix 20 mg continue to monitor I&Os, will reassess him tomorrow and further recommendation to follow, his preliminary urine culture is growing gram-negative bacilli will continue present management and follow up on sensitivity identification (2) Acute renal failure superimposed on stage 3 chronic kidney disease: Code(s): N17.9 - Acute kidney failure, unspecified; N18.3 - Chronic kidney disease, stage 3 (moderate) Status: Acute Assessment and Plan: The patient received 2 L of isotonic fluids in the ER due to hypotension that subsequently resolved. Will continue gentle IV fluid hydration and repeat BMP this a.m., plan is above (3) Diabetes mellitus with hyperglycemia: Code(s): E11.65 - Type 2 diabetes mellitus with hyperglycemia Status: Acute Assessment and Plan: Will place patient on moderate sliding scale insulin with Accu-Cheks AC/HS. The patient's home medications still need to be reviewed., will continue home regimen and monitor DS: Summary Hospital Course Reason for hospitalization: Baljeet Birmingham is a 69 year old male with a past medical history of dementia, insulin-dependent diabetes, chronic indwelling Cazares catheter who presented to the ER from [facility] via EMS due to low oxygen saturations and fever. The patient's temperature on arrival to the ER was 99.9?. To the ER his blood pressure was elevated to 160/144 but repeat blood pressure was as low as 82/58. However after 2 L of isotonic fluids the patient's systolic blood pressure returned to the 100s to 110s. When the patient arrived to the ER he had a Cazares catheter in place from the residential. But the patient was not having any urine output from the Cazares catheter. The ER physician ordered the Cazares catheter to be exchanged at which time the patient had adequate urine output. The patient had been evaluated in the ER on 06/11/2019 for generalized weakness and was diagnosed with a urinary tract infection. His urine culture at that time grew out Providencia stuartii resistant to ampicillin, amoxicillin, cefazolin, Cipro, Levaquin, gentamicin, nitrofurantoin, and tobramycin. It was indeterminate to Rocephin and imipenem. There
[2019-07-12] MEDS: RIVAROXABAN 15 MG TABLET PO (17:05)
[2019-07-12] MEDS: TAMSULOSIN HCL 0.4 MG CAPSULE PO (17:05)
[2019-07-12 17:53] LABS: Glucose Point of Care 197 (65-105)
[2019-07-12] MEDS: ARIPIPRAZOLE 2 MG TABLET 1 MG PO (20:47)
[2019-07-12] MEDS: MELATONIN 3 MG TABLET PO (20:47)
[2019-07-12] MEDS: INSULIN GLARGINE (*BKC) 100 UNITS/ML 32 UNITS SUB-Q (20:57)
[2019-07-12 22:22] LABS: Glucose Point of Care 139 (65-105)
== END 2019-07-12 21:45 | DRG 699 ==
LOC: ANHED 23:23 → ANH2MED 23:53
PROVIDERS: Emergency Medicine; Admitting Provider Internal Medicine; Emergency Provider Internal Medicine; Visit Provider Family Medicine
DX: T83.511A Infection and inflammatory reaction due to indwelling urethral catheter, initial encounter (principal); Z16.24 Resistance to multiple antibiotics; N17.9 Acute kidney failure, unspecified; I13.0 Hypertensive heart and chronic kidney disease with heart failure and stage 1 through stage 4 chronic kidney disease, or unspecified chronic kidney disease; Z68.41 Body mass index [BMI] 40.0-44.9, adult; I48.20 Chronic atrial fibrillation, unspecified; N39.0 Urinary tract infection, site not specified; E11.22 Type 2 diabetes mellitus with diabetic chronic kidney disease; I50.9 Heart failure, unspecified; N18.3 Chronic kidney disease, stage 3 (moderate); E11.65 Type 2 diabetes mellitus with hyperglycemia; E11.42 Type 2 diabetes mellitus with diabetic polyneuropathy; E66.01 Morbid (severe) obesity due to excess calories; F03.90 Unspecified dementia, unspecified severity, without behavioral disturbance, psychotic disturbance, mood disturbance, and anxiety; N40.0 Benign prostatic hyperplasia without lower urinary tract symptoms; I25.10 Atherosclerotic heart disease of native coronary artery without angina pectoris; J44.9 Chronic obstructive pulmonary disease, unspecified; K21.9 Gastro-esophageal reflux disease without esophagitis; E78.5 Hyperlipidemia, unspecified; E55.9 Vitamin D deficiency, unspecified; Z96.651 Presence of right artificial knee joint; Z90.49 Acquired absence of other specified parts of digestive tract
CPT/HCPCS: 36415; 36569; 71045; 80048; 80053; 81001; 83605; 83735; 85025; 85027; 87040; 87077; 87086; 87088; 87186; 87804; 92610; 93005; 96361; 96365; 97162; 97166; 99285; A9270; C1751; G0378; J0692; J1815; J1940; J2270; J2405; J7030

== ENCOUNTER 2019-07-31 17:05 | Inpatient (IN) | payer MEDICARE, MEDICAID, SELFPAY ==
[2019-07-31] VITALS (15 sets, daily range): BP systolic 87–152; BP diastolic 43–84; PULSE 79–104; RESP 13–24; TEMP 35.8–36.4; O2SAT 90–100
--- NOTE | ~2019-07-31 | XR_ITS ---
EXAMINATION: XR chest 1V portable 08/06/2019 13:32 INDICATION: Cough PROCEDURE: AP portable chest COMPARISON: Comparison to multiple prior studies sequentially, with oldest reviewed study dated 07/31. FINDINGS: Chronic elevation of the right diaphragm. Left basilar airspace disease, atelectasis versus pneumonia. The cardiomediastinal silhouette is within normal limits. There are no pleural effusions . There is no pneumothorax suspected. IMPRESSION: 1: Left basilar airspace disease, atelectasis versus pneumonia. Reviewed, dictated and finalized at location A.
--- NOTE | ~2019-07-31 | XR_ITS ---
MODIFIED ESOPHAGRAM HISTORY: Possible aspiration. Failed bedside examination. TECHNIQUE: Modified barium esophagram was performed by speech pathologist under radiologist fluorosco pic guidance. This was recorded on tape. The exam was reviewed on 08/04/2019 16:46 CDT. The DAP for this procedure was DAP 2.3 Gycm2. Fluoroscopy time is 2 minutes. FINDINGS: Lateral projection of the cervical spine demonstrates normal alignment. During oral stage patient is unable to effectively masticate crumbled solids. During pharyngeal phase there is larynge al penetration with thin liquids although no definite aspiration is identified.. IMPRESSION: 1: Laryngeal penetration with thin liquids without definite aspiration. 2: Please refer to speech pathologist report for additional detail. Reviewed, dictated and finalized at location A.
--- NOTE | ~2019-07-31 | XR_ITS ---
EXAMINATION: XR chest 1V portable DATE: 08/03/2019 05:52 INDICATION: Intubation. TECHNIQUE: A single frontal view of the chest was obtained. COMPARISON: Chest single view 08/02/2019 FINDINGS: There are mild airspace opacities in the perihilar regions and lower lung zones. No pleural effusion or pneumothorax. The heart size is normal. The endotracheal tube tip is 4.1 cm above the ca gill. The nasogastric tube tip is beyond the inferior margin of the radiograph, but at least to the s tomach. IMPRESSION: 1. Mild airspace opacities in the perihilar regions and lower lung zones with improvement, consistent with pulmonary edema versus pneumonia. Reviewed, dictated and finalized at location A. IMPRESSION: 1. Mild airspace opacities in the perihilar regions and lower lung zones with i mprovement, consistent with pulmonary edema versus pneumonia.
--- NOTE | ~2019-07-31 | XR_ITS ---
EXAMINATION: XR chest 1V portable DATE: 08/10/2019 05:55 INDICATION: Pneumonia TECHNIQUE: frontal view of the chest was obtained. COMPARISON: Chest radiograph dated 08/08/2019 FINDINGS: Patient is rotated towards the right. Elevation of the right hemidiaphragm. Pulmonary vascular conges tion and increased indistinct interstitial pattern with perihilar and lower lung predominance. No ple ural effusion or pneumothorax. Cardiomegaly. Persistent contrast material the stomach likely related to modified swallow study 1 week prior and suggesting gastroparesis. IMPRESSION: 1. Pulmonary vascular congestion and perihilar and basilar opacities which could represent pulmonary edema, pneumonia, atelectasis or some combination thereof. 2. Cardiomegaly. 3. Persistent oral contrast material in the stomach suggesting gastroparesis. Reviewed, dictated and finalized at location A. IMPRESSION: 1. Pulmonary vascular congestion and perihilar and basilar opacities which coul d represent pulmonary edema, pneumonia, atelectasis or some combination thereof . 2. Cardiomegaly. 3. Persistent oral contrast material in the stomach suggesting gastroparesis.
--- NOTE | ~2019-07-31 | CT_ITS ---
EXAMINATION: CT brain wo con DATE: 07/31/2019 17:43 INDICATION: Confusion TECHNIQUE: Computed tomography (CT) of the head was performed without intravenous contrast. The mA wa s adjusted according to patient size. Iterative reconstruction technique was employed. Exam dose: 68 1.00 mGy-cm total exam DLP. COMPARISON: None FINDINGS: Bilateral vertebral artery and prominent bilateral carotid siphon internal carotid artery c alcifications. Nonspecific diminished attenuation of the cerebral white matter, likely due to chronic small vessel i schemic changes. Small bilateral chronic thalamic lacunar infarcts. No intracranial mass lesion or hemorrhage or cerebrovascular accident. No midline shift or mass effe ct. Moderate central and cortical cerebral atrophy. No subdural or epidural hematoma. Included paranasal sinuses and mastoid air cells are normally developed and aerated. IMPRESSION: Cerebral atherosclerosis and chronic small vessel ischemic changes of the cerebral white matter Reviewed, dictated and finalized at Location A. Reviewed, dictated and finalized at location A.
--- NOTE | ~2019-07-31 | XR_ITS ---
EXAMINATION: XR chest 1V portable DATE: 08/02/2019 05:40 INDICATION: Pneumonia. TECHNIQUE: A single frontal view of the chest was obtained. COMPARISON: Chest single view 08/01/2019 FINDINGS: The patient is rotated to his left. There are airspace opacities in all lung zones with a p erihilar and lower lung predominance. Left lateral costophrenic angle is excluded. No pleural effusio n or pneumothorax. The heart size is normal. The endotracheal tube tip is 4.9 cm above the boaz. Th e nasogastric tube tip is beyond the inferior margin of the radiograph, but at least to the stomach. IMPRESSION: 1. Diffuse lung disease with worsening on the right, consistent with pulmonary edema versus pneumonia . Reviewed, dictated and finalized at location A. IMPRESSION: 1. Diffuse lung disease with worsening on the right, consistent with pulmonary edema versus pneumonia.
--- NOTE | ~2019-07-31 | XR_ITS ---
XR chest 1V portable DATE: 08/12/2019 11:17 INDICATION: Pneumonia. Right lung opacification. TECHNIQUE: Portable AP chest on 08/12/2019 at 1114 hours COMPARISON: 08/10/2019 portable AP chest at 2131 hours FINDINGS: There is pulmonary vascular congestion and redistribution. There are bilateral infiltrates which predominate centrally and in the lower lung zones, right greater than left. There is however co nsiderable improvement of the recent complete opacification of the right lung compared to 08/10/2019. Diffuse osteopenia. Diffuse idiopathic skeletal hyperostosis of the thoracic spine. Osteoarthritic changes at the glenohu meral joints degenerative change at the acromioclavicular joints. IMPRESSION: Improvement of right lung opacification since 08/10/2019 Persistent bilateral pulmonary infiltrates and pulmonary vascular congestion; diffusion diagnosis for bilateral infiltrates includes pulmonary edema, pneumonia Reviewed, dictated and finalized at location A. IMPRESSION: Improvement of right lung opacification since 08/10/2019 Persistent bilateral pulmonary infiltrates and pulmonary vascular congestion; d iffusion diagnosis for bilateral infiltrates includes pulmonary edema, pneumoni a
--- NOTE | ~2019-07-31 | XR_ITS ---
EXAMINATION: XR chest 1V portable DATE: 08/04/2019 05:57 INDICATION: Intubation. TECHNIQUE: A single frontal view of the chest was obtained. COMPARISON: Chest single view 08/03/2019 FINDINGS: There are airspace opacities in the mid and lower lung zones with a perihilar predominance. No pleural effusion or pneumothorax. The heart size is normal. IMPRESSION: 1. Stable airspace opacities in the mid and lower lung zones with a perihilar predominance, consisten t with pulmonary edema versus pneumonia. Reviewed, dictated and finalized at location A. IMPRESSION: 1. Stable airspace opacities in the mid and lower lung zones with a perihilar p redominance, consistent with pulmonary edema versus pneumonia.
--- NOTE | ~2019-07-31 | XR_ITS ---
EXAMINATION: XR chest 1V portable EXAM DATE: 08/10/2019 21:30 INDICATION: Increasing shortness of breath, respiratory requirements. Pneumonia. TECHNIQUE: Portable AP frontal chest x-ray was obtained. Comparison is made to prior examination from 539 a.m. same date. FINDINGS: There is completely opacified right hemithorax probably combination of postobstructive atel ectasis and pleural effusion. There appears to be cut off of the right mainstem bronchus, and difficu lt to identify air bronchograms on the right, could indicate that airway is filled with debris or muc us. Only small amount of ill-defined left basilar edema or pneumonia. Mild cardiomegaly. There is no pneumothorax suspected. Patient has diffuse idiopathic skeletal hyperostosis (DISH). IMPRESSION: Development of completely opacified right hemithorax, probably combination of right lung postobstructive collapse from mucous plugging and pleural effusion. Can't quantify amount of superimp osed right-sided pneumonia or edema. Reviewed, dictated and finalized at location A. IMPRESSION: Development of completely opacified right hemithorax, probably comb ination of right lung postobstructive collapse from mucous plugging and pleural effusion. Can't quantify amount of superimposed right-sided pneumonia or edema .
--- NOTE | ~2019-07-31 | XR_ITS ---
EXAMINATION: XR abdomen NG/feed tube insert DATE: 08/01/2019 00:14 INDICATION: Orogastric tube placement. TECHNIQUE: A semiupright view of the abdomen was obtained. COMPARISON: Abdomen single view 01/14/2007 FINDINGS: The lower abdomen is excluded. There are no dilated loops of bowel. The nasogastric tube ti p is in the stomach. Surgical clips in the right upper quadrant are likely from cholecystectomy. IMPRESSION: 1. Nasogastric tube tip in the stomach. Reviewed, dictated and finalized at location A.
--- NOTE | ~2019-07-31 | XR_ITS ---
EXAMINATION: XR abdomen/kub 1V INDICATION: Fecal impaction TECHNIQUE: Supine views of the abdomen were obtained on 2 radiographs. COMPARISON: 08/10/2019 FINDINGS: There are no dilated loops of bowel. The bowel gas pattern is nonspecific. Surgical clips i n the right upper quadrant are likely from prior cholecystectomy. Calcified atherosclerosis is noted. IMPRESSION: 1. Nonspecific bowel gas pattern. Reviewed, dictated and finalized at location A.
--- NOTE | ~2019-07-31 | XR_ITS ---
EXAMINATION: XR chest 1V portable EXAM DATE: 08/17/2019 18:32 INDICATION: Hypoxia, pneumonia. Opacified right lung. TECHNIQUE: Portable AP frontal chest x-ray was obtained. Comparison is made to prior examination from 08/12/2019. FINDINGS: There is patchy bilateral perihilar airspace disease, with mild improvement on the left. El evated right hemidiaphragm. There is no pneumothorax suspected. There are no pleural effusions. Cardi ac silhouette is stable in size compared to prior exam. There are bony degenerative changes. IMPRESSION: Patchy bilateral perihilar pneumonia with mild improvement on the left. Reviewed, dictated and finalized at location A. IMPRESSION: Patchy bilateral perihilar pneumonia with mild improvement on the l eft.
--- NOTE | ~2019-07-31 | XR_ITS ---
XR chest 1V portable DATE: 07/31/2019 17:48 INDICATION: Transient alteration of awareness TECHNIQUE: Portable AP chest on 07/31/2019 at 1744 hours COMPARISON: 07/09/2019 portable AP chest FINDINGS: There is patchy bilateral pulmonary infiltrate, greater in the lower lung zones, but scatte red rather diffusely bilaterally. Normal heart size. No pleural effusion. Surgical clips, right abdomen. Degenerative spurring of the thoracic and lumbar spine. IMPRESSION: Patchy infiltrates scattered bilaterally in both lungs, suggesting bilateral pneumonia; d ifferential diagnosis includes aspiration pneumonitis Reviewed, dictated and finalized at location A. IMPRESSION: Patchy infiltrates scattered bilaterally in both lungs, suggesting bilateral pneumonia; differential diagnosis includes aspiration pneumonitis
--- NOTE | ~2019-07-31 | XR_ITS ---
EXAMINATION: XR chest ET placement DATE: 08/01/2019 00:13 INDICATION: Intubation. TECHNIQUE: A single frontal view of the chest was obtained. COMPARISON: Chest single view 07/31/2019, 07/09/2019 FINDINGS: There is chronic mild elevation of right hemidiaphragm. There are airspace opacities in the mid and lower lung zones. No pleural effusion or pneumothorax. The heart size is normal. The endotra cheal tube tip is 2.8 cm above the boaz. The nasogastric tube tip is in the stomach. IMPRESSION: 1. Worsened airspace opacities in the mid and lower lung zones, consistent with atelectasis versus pn eumonia. Reviewed, dictated and finalized at location A. IMPRESSION: 1. Worsened airspace opacities in the mid and lower lung zones, consistent with atelectasis versus pneumonia.
--- NOTE | ~2019-07-31 | XR_ITS ---
XR chest 1V portable 08/08/2019 11:40 Indication: Cough. Pneumonia. Procedure: AP portable chest Comparison: Comparison to multiple prior studies sequentially, with oldest reviewed study dated 08/02. Findings: Bibasilar airspace disease, left greater than right. Heart size normal for technique. No pl eural effusion or pneumothorax. No acute osseous Impression: 1: Bibasilar airspace disease, left greater than right, suspicious for pneumonia. Reviewed, dictated and finalized at location A. Impression: 1: Bibasilar airspace disease, left greater than right, suspicious for pneumoni a.
--- NOTE | ~2019-07-31 | XR_ITS ---
XR abdomen/kub 1V 08/10/2019 10:49 Indication: Constipation Procedure: KUB Comparison: There are multiple 01/14/2007 Findings: There is fecal impaction of the distal colon and rectum with large stool ball in the rectum measuring 9.3 cm transversely. Nonobstructive bowel gas pattern. Small neural residual contrast in t he stomach and colon. There are cholecystectomy clips. Impression: 1: Fecal impaction of the distal colon and rectum. Reviewed, dictated and finalized at location A. Impression: 1: Fecal impaction of the distal colon and rectum.
--- NOTE | ~2019-07-31 | XR_ITS ---
XR chest 1V portable 08/07/2019 08:12 Indication: Cough Procedure: AP portable chest Comparison: 08/04/2019 Findings: Stable bilateral mixed interstitial and airspace disease. Elevated right diaphragm. No pleu ral effusion or pneumothorax. Stable cardiomediastinal silhouette. No acute osseous abnormality. Impression: 1: Stable mixed interstitial and airspace disease bilaterally which may represent pneumonia or edema. Reviewed, dictated and finalized at location A. Impression: 1: Stable mixed interstitial and airspace disease bilaterally which may represe nt pneumonia or edema.
--- NOTE | 2019-07-31 17:10 | ECG_ITS ---
Measurements Intervals [place] Rate: 82 P: 68 ID: [id number] QRS: 23 QRSD: 126 T: 24 QT: 385 QTc: 451 Interpretive Statements SINUS RHYTHM RIGHT BUNDLE BRANCH BLOCK ABNORMAL ECG Electronically Signed On 08-02-2019 10:07:11 CDT by Bridger Bro D.O.
--- NOTE | 2019-07-31 17:18 | ED.AMS ---
HPI - Altered Mental Status General Chief Complaint: Altered Mental Status Stated Complaint: lethargic Time Seen by Provider: 07/31/19 17:13 History of Present Illness HPI narrative: [facility] for [facility] status. He does not speak he just makes a muffled groaning sound. The only direction he followed was to stick out his tongue. His paperwork specifies he is a full code. More information will be gleaned from the paperwork. I had the nurses talking that he supposed to be on a pur?ed diet, but there was some difficulty with that so they were giving him regular liquids. Related Data Home Medications Medication Instructions Recorded Confirmed Humalog U-100 Insulin 20 unit SUBCUT AC 06/11/19 07/10/19 Lantus U-100 Insulin 32 unit SUBCUT HS 06/11/19 07/10/19 Namzaric 1 cap PO HS 06/11/19 07/10/19 acetaminophen 325 mg PO Q12H PRN 06/11/19 07/10/19 amlodipine 10 mg PO DAILY 06/11/19 07/10/19 aripiprazole [Abilify] 1 mg PO HS 06/11/19 07/10/19 bisacodyl 5 mg PO DAILY PRN 06/11/19 07/10/19 cholecalciferol (vitamin D3) 1,000 unit PO DAILY 06/11/19 07/10/19 ferrous sulfate 325 mg PO EVERY OTHER DAY 06/11/19 07/10/19 folic acid 1 mg PO DAILY 06/11/19 07/10/19 glucagon 1 mg SUBCUT Q20M PRN 06/11/19 07/10/19 lisinopril 10 mg PO DAILY 06/11/19 07/10/19 melatonin 3 mg PO HS 06/11/19 07/10/19 metoclopramide HCl 10 mg PO ACHS 06/11/19 07/10/19 nitroglycerin 0.4 mg SUBLINGUAL PRN PRN 06/11/19 07/10/19 pregabalin [Lyrica] 200 mg PO Q12H 06/11/19 07/10/19 Senna with Docusate Sodium 1 tablet PO BID 07/10/19 07/10/19 Vascepa 1 g PO BID 07/10/19 07/10/19 polyethylene glycol 3350 [Miralax] 17 g PO DAILY 07/10/19 07/10/19 sertraline 200 mg PO DAILY 07/10/19 07/10/19 tamsulosin 0.4 mg PO QPM 07/10/19 07/10/19 tramadol 50 mg PO Q6H PRN 07/10/19 07/10/19 Allergies Allergy/AdvReac Type Severity Reaction Status Date / Time aspirin Allergy Unknown Verified 07/31/19 17:30 codeine Allergy Unknown Verified 07/31/19 17:30 ketoconazole Allergy Unknown Verified 07/31/19 17:30 Penicillins Allergy Unknown Verified 07/31/19 17:30 propoxyphene Allergy Unknown Verified 07/31/19 17:30 Review of Systems Review of Systems: ROS unobtainable: Yes unobtainable due to mental status PMFSH Past Medical History Medical History Atrial fibrillation BPH (benign prostatic hyperplasia) CAD (coronary artery disease) CHF (congestive heart failure) Chronic indwelling Cazares catheter CKD (chronic kidney disease) With baseline creatinine outside labs of 1.8 COPD (chronic obstructive pulmonary disease) Dementia Depression Essential hypertension GERD (gastroesophageal reflux disease) Hyperlipidemia Peripheral neuropathy Type II diabetes mellitus Vitamin D deficiency Surgical History Surgical History History of cholecystectomy History of partial colectomy History of right below knee amputation Family History Family History (Updated 07/10/19 @ 01:36 by Sanjuanita Brewster DO) Sibling Cerebrovascular accident Diabetes mellitus COPD (chronic obstructive pulmonary disease) Obesity Thyroid disease Father Lung disease Mother Heart disease Social History Social History Social History: Primary care physician: Dr. Savage Moses Code status: Full code per EMR Smoking packs per day: 1 Smoking cigarettes per day: 20.0 Years smoked: 30 Smoking pack-years: 30.00 Smoking status: Former smoker Alcohol intake: unknown Substance use: unknown Substance use type: does not use Additional living arrangements comments: [facility] Gender identity (if verbalized by the patient): Male Spiritual care concerns: No Exam Narrative: Exam Narrative: GENERAL: Morbid obesity, pale and in no acute distress. HEAD: Normocephalic, atraumatic
[2019-07-31 17:28] LABS: Glucose Point of Care 96 (65-105)
[2019-07-31] MEDS: SODIUM CHLORIDE 0.9% IV 1,000 ML 999 ML IV CONT (17:28)
[2019-07-31 17:34] LABS: Basophils Percent Auto 0.4 % (0.2-1.2); Eosinophils Absolute Auto 0.1 K/mm3 (0-0.3); Eosinophils Percent Auto 0.9 % (0-4.4); Hematocrit 33.8 % (42.0-52.0); Hemoglobin 9.7 g/dL (14.0-18.0); Immature Granulocyte Absolute 0.12 K/mm3 (0.00-0.031); Immature Granulocyte Percent A 1.7 % (0-0.5); Lymphocytes Absolute Auto 0.82 K/mm3 (0.9-3.2); Lymphocytes Percent Auto 11.8 % (18.3-44.2); Mean Corpuscular HGB Conc 28.7 g/dl (32-36); Mean Corpuscular Hemoglobin 28.6 pg (26-34); Mean Corpuscular Volume 99.7 fl (80-100); Mean Platelet Volume 10.8 fl (7.4-10.4); Monocytes Absolute Auto 0.4 K/mm3 (0.1-0.6); Monocytes Percent Auto 6.3 % (2.6-8.5); Neutrophils Absolute Auto 5.5 K/mm3 (1.3-6.7); Neutrophils Percent Auto 78.9 % (45.5-73.1); Platelet Count Result 256 k/mm3 (150-375); Red Blood Count 3.39 M/mm3 (4.6-6.20); Red Cell Distribution Width 14.6 % (11.5-14.5)
[2019-07-31 17:40] LABS: Add Urine Microscopic? YES; Appearance Urine Turbid (Clear); Bacteria Urine 3+ /hpf; Bilirubin Urine Negative (Negative); Blood Urine 2+ (Negative); Color Urine Yellow (Yellow); Glucose Urine UA Negative (Negative); Hyaline Casts Urine 15-19 /lpf; Ketones Urine Negative (Negative); Leukocyte Esterase Ur 3+ LEU/UL (Negative); Mucus Urine Few /lpf; Nitrate Urine Negative (Negative); Protein Urine 2+ mg/dL (Negative); RBC Urine >75 /hpf (0-2); Specific Grav Ur 1.013 (1.001-1.035); Squamous Epithelial Cell Urine Many /hpf (Few); Urobilinogen Urine Negative mg/dL (<2.0); WBC Urine >75 /hpf
[2019-07-31 17:44] LABS: INR 1.4; Prothrombin Time 16.3 Seconds (11.1-14.7)
[2019-07-31 17:46] LABS: Lactic Acid 0.7 mmol/L (0.7-2.1)
[2019-07-31 17:47] LABS: Alanine Aminotransferase 6 U/L (4-50); Albumin Level 3.3 g/dL (3.5-5.1); Alkaline Phosphatase 75 U/L (38-126); Aspartate Amino Transferase 12 U/L (17-59); Bilirubin,Total 0.1 mg/dL (0.2-1.3); Blood Urea Nitrogen 41 mg/dL (9-20); Calcium 8.5 mg/dL (8.4-10.2); Carbon Dioxide 25 mmol/L (22-30); Chloride 110 mmol/L (98-107); Estimated CRCL calculation 57 ml/min; Estimated Glomerular Filt Rate 40; Glucose 94 mg/dL (75-110); Potassium 5.7 mmol/L (3.4-5.0); Sodium 139 mmol/L (137-145)
[2019-07-31 17:53] LABS: Hypochromasia 1+ (NORMAL); Platelet Estimate Adequate (Adequate)
[2019-07-31 17:54] LABS: Anisocytosis 1+ (NORMAL)
[2019-07-31 17:59] LABS: Troponin I < 0.012 ng/mL (0.000-0.034)
[2019-07-31 17:59] LABS: Amphetamine Screen Urine Negative (Negative); Barbiturate Screen Urine Negative (Negative); Benzodiazepines Screen Urine Negative (Negative); Cannabinoid Screen Urine Negative (Negative); Cocaine Screen Urine Negative (Negative); Methadone Screen Urine Negative (Negative); Opiate Screen Urine Negative (Negative); Phencyclidine Screen Urine Negative (Negative)
--- NOTE | 2019-07-31 18:49 | PC.NURSE ---
Spoke with patients Sydney, and notified of diagnosis of pneumonia and that patient will be admitted to hospital.
[2019-07-31] MEDS: SODIUM CHLORIDE 0.9% IV 500 ML (21:36)
[2019-07-31 21:55] LABS: Alveolar/Arterial O2 Gradient 365.4 mmHg; Base Excess ABG -8.1 mEq/l (+/-2.0); Fractional Inspired Oxygen 70 %; Oxygen Content ABG 17.5 %vol (16.0-22.0); Oxygen Saturation ABG 92.8 % (95.0-100.0); Oxyhemoglobin 91.1 % THb (90.0-100.0); PCO2 ABG 51.5 mmHg (35.0-45.0); PO2 ABG 78.3 mmHg (80.0-100.0); PO2 FiO2 Ratio Arterial Blood 1.12 %; Total Hemoglobin 13.6 g/dL (12.0-18.0)
--- NOTE | 2019-07-31 21:55 | PM.IMHP ---
H&P: HPI History of Present Illness Chief complaint: Pneumonia Narrative: Baljeet Birmingham is a 69 year old male who has a history of dementia and comes from [facility]. After reviewing the EMS papers it it looks like the patient had never been checked for covid 19 and had no signs of COVID-19. The patient was just discharged from here on 07/12/2019 the patient had a UTI then and grew out bacteria that is multi-drug resistant. The patient was on cefepime at that time and tolerated well. The patient has a chronic indwelling Cazares catheter. It looks like the patient's Omnicef was discontinued. To the emergency room today with altered mental status. He was making muffling groaning sounds when he came in patient id is still a full code. The patient was on appear read diet partially thickened diet when he was here last time.Was read as patchy infiltrate is scattered bilaterally in both lungs suggesting bilateral pneumonia differential could be aspiration pneumonitis. The patient was swabbed for covid 19 and started on a Zithromax and Rocephin. X-ray does not like look like a typical covid 19 patient no CRP are LDH have been checked. CT of the brain was read as cerebral atherosclerosis and chronic small vessel ischemic changes of cerebral white matter. Patient's blood pressure was on the soft side and was given IV fluids a 1 time dose of normal saline bolus. His blood pressure dropped again when he was admitted on the we gave him a half of a fluid L. we checked his blood sugar and it was elevated. Patient still is verbally unresponsive. He is only grunting so I ordered ABGs. Patient's pH 7.208 pCO2 61.5 PO2 78.3 patient is on a non-rebreather. Date of service 07/31/2019 Review of Systems Review of Systems: Narrative: Patient is lethargic and would not arouse with sternal rub. All systems reviewed & are unremarkable except as noted in HPI and below Constitutional: Constitutional: Reports as per HPI and Reports no additional constitutional complaints Eyes: Eyes: Reports as per HPI and Reports no additional eye complaints ENT: Reports system reviewed and no additional complaints, except as documented and Reports Normal hearing present Cardiovascular: Cardiovascular: Reports no additional cardiovascular complaints Respiratory: Respiratory: Reports no additional respiratory complaints and Reports no additional respiratory complaints Gastrointestinal: Gastrointestinal: Reports as per HPI and Reports no additional gastrointestinal complaints Musculoskeletal: Musculoskeletal: Reports no additional musculoskeletal complaints Integumentary/Breasts: Skin/Breast: Reports system reviewed and no additional complaints, except as docu and Reports as per HPI Neurologic: Reports system reviewed and no additional complaints, except as documented, Reports as per HPI and Reports Normal hearing present Psychiatric: Psychiatric: Reports no additional psychiatric complaints and Reports as per HPI Endocrine: Endocrine: Reports no additional endocrine complaints Hematologic/Lymphatic: Hematologic/Lymphatic: Reports no additional hematologic/lymphatic complaints Allergic/Immunologic: Allergic/Immunologic: Reports no additional allergic/immunologic complaints FOR[facility]LY [facility] Past Medical History Medical History Atrial fibrillation BPH (benign prostatic hyperplasia) CAD (coronary artery disease) CHF (congestive heart failure) Chronic indwelling Cazares catheter CKD (chronic kidney disease) With baseline creatinine outside labs of 1.8 COPD (chronic obstructive pulmonary disease) Dementia Depression Essential hypertension GERD (gastroesophageal reflux disease) Hyperlipidemia Peripheral neuropathy Type II diabetes mellitus Vitamin D deficiency Surgical History Surgical History History of cholecystectomy History of partial colectomy Histo
[2019-07-31 21:56] LABS: Device NON-REBREATHER MASK; Modified Allen's Test Pass; Site Drawn LEFT RADIAL; pH ABG 7.208 (7.350-7.450)
[2019-07-31 22:30] LABS: Blood Urea Nitrogen 42 mg/dL (9-20); Carbon Dioxide 20 mmol/L (22-30); Chloride 111 mmol/L (98-107); Estimated CRCL calculation 64 ml/min; Estimated Glomerular Filt Rate 47; Glucose 173 mg/dL (75-110); Potassium 5.9 mmol/L (3.4-5.0); Sodium 138 mmol/L (137-145)
--- NOTE | 2019-07-31 22:34 | ADMGEN ---
This patient, Baljeet Birmingham, was admitted to [facility] Surg Room 325-01 at 2115. Patient/family oriented to hospital policies and general routines including ID bracelet, bed and alarms, visiting hours, pain management, procedures, bathroom and other care routines, personal items, smoking policy, room service/diet, and visiting hours. Valuables list has been completed. Information on how to activate the Rapid Response Team has been discussed. Patient/Family are encouraged to report perceived risks to care and to ask questions if they do not understand what they are told or what they should do.
[2019-07-31 22:59] LABS: Glucose Point of Care 179 (65-105)
--- NOTE | 2019-07-31 23:07 | PC.NURSE ---
This patient, Baljeet Birmingham, was transferred to [ ICU 6] on 07/31/19 at 2250. Personal belongings sent with patient. Belongings list checked and signed with receiving [ Nito RN]. Report given to [ Nito RN]. Appropriate documentation sent with patient.
[2019-08-01] VITALS (33 sets, daily range): BP systolic 88–154; BP diastolic 50–96; PULSE 70–102; RESP 20–28; TEMP 35.8–37.6; O2SAT 92–99; BMI 42.5; BMI 43.2
--- NOTE | 2019-08-01 | ECHO_ITS ---
Patient Info Name: Baljeet Birmingham Age: 69 years : 1950 Gender: Male Ht: 73 in Wt: 323 lbs BSA: 2.81 m2 HR: 75 bpm BP: 139 / 57 mmHg Heart Rhythm: Right Bundle Branch Block, Sinus Rhythm Technical Quality: Fair Exam Date: 08/01/2019 1:33 PM Exam Location: [facility] Patient Status: Inpatient Admit Date: 08/01/2019 Staff Ordering Physician: Cuca Manuel NP Upper Marker: Jaguar Patino RDCS Attending Provider: Timbo Dubon MD Referring Physician: [facility] ; Exam Type: CA echo doppler color flow Study Info Indications J96.01 - Acute respiratory failure with hypoxia Complete two-dimensional, color flow and Doppler transthoracic echocardiogram is performed. History/Risk Factors Acute respiratory failure w/ hypoxia; CAD, CHF, COPD, CKD, HTN, DM2. Summary 1. Left ventricular chamber dimension is normal. 2. Left ventricular systolic function is normal, estimated at 60-65%. 3. There is trace mitral valve regurgitation. Left Ventricle Left ventricular chamber dimension is normal. Left ventricular systolic function is normal, estimated at 60-65%. The left ventricular diastolic function is normal. Right Ventricle Right ventricular chamber dimension is normal. Left Atria Left atrial chamber dimension is normal. Right Atria Right atrial chamber dimension is not well visualized. Aortic Valve The aortic valve is normal. Pulmonic Valve The pulmonic valve is not well visualized. Mitral Valve The mitral valve has normal leaflets. There is trace mitral valve regurgitation. Tricuspid Valve The tricuspid valve leaflets are normal. Pericardium/Pleural The pericardium appears normal. Aorta The aortic root size at the sinus of Valsalva is normal. Left Ventricular Outflow Tract Name Value Normal LVOT 2D LVOT Diameter 2.2 cm LVOT Doppler LVOT Peak Gradient 4 mmHg LVOT Mean Gradient 2 mmHg LVOT VTI 16 cm LVOT VTI/AV VTI Ratio 0.7 LVOT Stroke Volume 63 ml LVOT CO 4.5 l/min LVOT CI 1.6 l/min/m2 Mitral Valve Name Value Normal MV Doppler MV Decel Jennings 250 cm/s2 MV PHT 71 ms MV Area (PHT) 3.1 cm2 4.0-5.0 MV Diastolic Function MV E Peak Velocity 62 cm/s MV A Peak Velocity 55 cm/s MV E/A 1.1 MV Decel Time 246 ms MV Annular TDI
--- NOTE | 2019-08-01 00:05 | WPDPROCEDUR ---
Procedures Central Line Placement: Right Femoral: Discussed w/ patient and/or surrogate, the non-emergent placement of a central venous catheter, including its clinical necessity/indication & associated potential risks & complications.: Yes (I have discussed with the patient and/or surrogate) Emergently Placed - (Given emergent patient conditions, temporal constraints may not have permitted and aforementioned informed consent.): No Central Line Date: 07/31/19 Central Line Time: 23:06 Pre-procedural Time-Out was completed immediately before starting the procedure and confirmed: Patient Identification, Site, Procedure, Patient Position and the Availability of Requisite Equipment.: Yes Patient Position: supine Patient placed on monitor/pulse ox: Yes Provider Prep: mask, sterile gown, sterile gloves, Max. sterile barrier precautions, cap and hand hygiene Central line prep: Povidone-Iodine 1% Local anesthesia used: lidocaine 1% Ultrasound used for placement: Yes Central line lumen inserted: triple Indonesian: 7 Length (cm): 20 Depth of Insertion (cm): 20 Post procedure: sutured in place, good blood return, all ports aspirated, flushed, capped, tegaderm and antimicrobial disc Post procedure x-ray: tip of catheter in good position Additional comments: this was the second attempt to the right femoral area. The first attempt i was able to get a great blood great with the syringe but the triple lumen would not advance and i did not feel comfortable with the placement since the triple lumen would not advance. The second attempt had no problems and the triple lumen advanced without difficulty.All three ports flushed well. and all three ports had a great blood return. Patient had been sedated during the procedure. Intubation: Intubation Date: 07/31/19 Intubation Time: 22:11 A pre-procedural Time-Out was completed immediately before starting the procedure and confirmed: Patient Identification, Site, Procedure, Patient Position and the Availability of Requisite Equipment: Yes Sedative: etomidate (40) Paralytic: succinylcholine (40) Laryngoscope: fiber optic video scope Assist device used: fiber optic device ET tube size: cuffed Tube secured depth (cm): 27 Tube placement confirmation: visualized tube passing through cords and equal breath sounds bilaterally Patient tolerated procedure: well Intubation complications: none
[2019-08-01 00:16] LABS: Alveolar/Arterial O2 Gradient 439.8 mmHg; Base Excess ABG -6.8 mEq/l (+/-2.0); Carboxyhemoglobin 2.2 % THb (0-2.0); Fractional Inspired Oxygen 80 %; HCO3 ABG 19.4 mEq/l (22.0-26.0); Methemoglobin ABG 0.3 %THb (0-1.5); Oxygen Content ABG 14.4 %vol (16.0-22.0); Oxygen Saturation ABG 95.6 % (95.0-100.0); Oxyhemoglobin 93.5 % THb (90.0-100.0); PO2 ABG 86.9 mmHg (80.0-100.0); PO2 FiO2 Ratio Arterial Blood 1.09 %; Total Hemoglobin 10.9 g/dL (12.0-18.0)
[2019-08-01 00:18] LABS: Device VENTILATOR; Modified Allen's Test Pass; Site Drawn LEFT RADIAL; pH ABG 7.286 (7.350-7.450)
[2019-08-01 00:19] LABS: Arterial Blood Gas PEEP 8 cmH2O; Arterial Blood Gas Tidal Volume 480 ml; Arterial Blood Gas Vent Mode CMV; Arterial Blood Gas Ventilator rate 20 /MIN
[2019-08-01 01:10] LABS: Blood Urea Nitrogen 40 mg/dL (9-20); Calcium 8.2 mg/dL (8.4-10.2); Carbon Dioxide 21 mmol/L (22-30); Chloride 111 mmol/L (98-107); Estimated CRCL calculation 64 ml/min; Estimated Glomerular Filt Rate 47; Glucose 220 mg/dL (75-110); Potassium 5.8 mmol/L (3.4-5.0); Sodium 138 mmol/L (137-145)
[2019-08-01] MEDS: INSULIN ASPART (*BKC) 100 UNITS/ML SUB-Q ×2 (01:36→06:43)
[2019-08-01 04:50] LABS: Base Excess ABG -5.1 mEq/l (+/-2.0); Carboxyhemoglobin 2.1 % THb (0-2.0); Fractional Inspired Oxygen 60 %; HCO3 ABG 20.1 mEq/l (22.0-26.0); Methemoglobin ABG 0.3 %THb (0-1.5); Modified Allen's Test Pass; Oxygen Content ABG 15.9 %vol (16.0-22.0); Oxygen Saturation ABG 91.9 % (95.0-100.0); Oxyhemoglobin 90.2 % THb (90.0-100.0); PCO2 ABG 37.8 mmHg (35.0-45.0); PO2 ABG 65.2 mmHg (80.0-100.0); PO2 FiO2 Ratio Arterial Blood 1.09 %; Reduced Hemoglobin 7.4 %THb (0-5.0); Site Drawn LEFT RADIAL; Total Hemoglobin 12.5 g/dL (12.0-18.0); pH ABG 7.343 (7.350-7.450)
[2019-08-01 04:51] LABS: Arterial Blood Gas PEEP 8 cmH2O; Arterial Blood Gas Tidal Volume 480 ml; Arterial Blood Gas Vent Mode CMV; Arterial Blood Gas Ventilator rate 20 /MIN; Device VENTILATOR
[2019-08-01 06:06] LABS: Basophils Absolute Auto 0.1 K/mm3 (0.0-0.1); Basophils Percent Auto 0.5 % (0.2-1.2); Eosinophils Percent Auto 0.1 % (0-4.4); Hematocrit 32.1 % (42.0-52.0); Hemoglobin 9.5 g/dL (14.0-18.0); Immature Granulocyte Absolute 0.07 K/mm3 (0.00-0.031); Immature Granulocyte Percent A 0.7 % (0-0.5); Lymphocytes Absolute Auto 0.53 K/mm3 (0.9-3.2); Mean Corpuscular HGB Conc 29.6 g/dl (32-36); Mean Corpuscular Hemoglobin 29.2 pg (26-34); Mean Corpuscular Volume 98.8 fl (80-100); Mean Platelet Volume 11.1 fl (7.4-10.4); Monocytes Absolute Auto 0.8 K/mm3 (0.1-0.6); Monocytes Percent Auto 7.2 % (2.6-8.5); Neutrophils Absolute Auto 9.1 K/mm3 (1.3-6.7); Neutrophils Percent Auto 86.5 % (45.5-73.1); Platelet Count Result 233 k/mm3 (150-375); Red Blood Count 3.25 M/mm3 (4.6-6.20); Red Cell Distribution Width 14.6 % (11.5-14.5); White Blood Count 10.5 K/mm3 (4.5-10.0)
[2019-08-01 06:27] LABS: Lactic Acid 2.3 mmol/L (0.7-2.1)
[2019-08-01 06:31] LABS: Alanine Aminotransferase 8 U/L (4-50); Albumin Level 3.1 g/dL (3.5-5.1); Alkaline Phosphatase 74 U/L (38-126); Aspartate Amino Transferase 11 U/L (17-59); Bilirubin,Total 0.1 mg/dL (0.2-1.3); Blood Urea Nitrogen 40 mg/dL (9-20); Calcium 8.1 mg/dL (8.4-10.2); Carbon Dioxide 20 mmol/L (22-30); Chloride 109 mmol/L (98-107); Estimated CRCL calculation 60 ml/min; Estimated Glomerular Filt Rate 43; Glucose 211 mg/dL (75-110); Lactate Dehydrogenase 326 U/L (313-618); Potassium 5.8 mmol/L (3.4-5.0); Sodium 136 mmol/L (137-145)
[2019-08-01 06:33] LABS: NT Pro B Type Natriuretic Pept 237 PG/ML (5-100)
[2019-08-01 06:42] LABS: CRP 12.1 mg/dL (<1.0)
[2019-08-01] MEDS: FAMOTIDINE 20 MG/2 ML VIAL IV PUSH ×2 (07:41→21:00)
[2019-08-01] MEDS: NOREPINEPHRINE 8 MG/D5W 250 ML 8 MG/250 ML BAG 9.4 MG IV CONT (07:42)
[2019-08-01] MEDS: HEPARIN SODIUM 5,000 UNITS/ML VIAL 5000 UNITS SUB-Q ×2 (09:01→21:00)
[2019-08-01] MEDS: metroNIDAZOLE 500 MG/ISO 100ML 500 MG/100 ML BAG 100 MG IVPB ×3 (09:01→23:50)
[2019-08-01] MEDS: SODIUM BICARBONATE TAB 650 MG TABLET 1300 MG PO ×3 (09:01→21:01)
[2019-08-01] MEDS: SODIUM BICARBONATE 8.4% 150 MEQ in WATER, STERILE FOR INJECTION 950 ML 75 MEQ IV CONT ×2 (09:01→22:35)
[2019-08-01] MEDS: SODIUM POLYSTYRENE SULFONONATE 15 GM/60 ML BTL 30 GM PO (09:02)
[2019-08-01 09:25] LABS: Lactate Dehydrogenase 311 U/L (313-618)
[2019-08-01 09:33] LABS: D Dimer 0.46 ug/mL (<0.48)
[2019-08-01 09:38] LABS: PCO2 ABG 41.6 mmHg (35.0-45.0); PO2 ABG 86.9 mmHg (80.0-100.0); pH ABG 7.286 (7.350-7.450)
[2019-08-01 09:39] LABS: Alveolar/Arterial O2 Gradient 439.8 mmHg; Base Excess ABG -6.8 mEq/l (+/-2.0); Carboxyhemoglobin 2.2 % THb (0-2.0); Fractional Inspired Oxygen 80 %; HCO3 ABG 19.4 mEq/l (22.0-26.0); Methemoglobin ABG 0.3 %THb (0-1.5); Oxygen Content ABG 14.4 %vol (16.0-22.0); Oxygen Saturation ABG 95.6 % (95.0-100.0); Oxyhemoglobin 93.5 % THb (90.0-100.0); PO2 FiO2 Ratio Arterial Blood 1.09 %; Total Hemoglobin 10.9 g/dL (12.0-18.0)
[2019-08-01 09:40] LABS: Arterial Blood Gas PEEP 8 cmH2O; Arterial Blood Gas Tidal Volume 480 ml; Arterial Blood Gas Vent Mode CMV; Arterial Blood Gas Ventilator rate 20 /MIN; Device VENTILATOR; Modified Allen's Test Pass; Site Drawn LEFT RADIAL
[2019-08-01 09:49] LABS: CRP 16.4 mg/dL (<1.0)
[2019-08-01 10:13] LABS: PCO2 ABG 41.6 mmHg (35.0-45.0)
--- NOTE | 2019-08-01 10:48 | WPDCNINT ---
Assessment and Plan Assessment and plan (1) Acute respiratory failure: Code(s): J96.00 - Acute respiratory failure, unspecified whether with hypoxia or hypercapnia Status: Acute Assessment and Plan: Acute Respiratory failure multifactorial secondary to pneumonia which may be aspiration with CHF, baseline COPD Continue full mechanical ventilation support to prevent hypoxemia/hypercarbia and end organ damage. ABG and PCXR reviewed and will repeat in am. CXR - Worsened airspace opacities in the mid and lower lung zones, consistent with atelectasis versus pneumonia. Low tidal volume ventilation strategy to prevent volutrauma Bronchodilators check echocardiogram blood and sputum culture patient on vancomycin cefepime. I have added Flagyl to cover anaerobes COVID-19 suspected. SARS-CoV-2 PCR sent and results pending Patient is in Airborne, Droplet and Contact Isolation (2) Septic shock: Code(s): A41.9 - Sepsis, unspecified organism; R65.21 - Severe sepsis with septic shock Status: Acute Assessment and Plan: secondary to pneumonia and UTI IV fluid bolus given in context of history of CHF cautious hydration check echo on Levophed (3) Pneumonia: Qualifiers: Laterality: bilateral Lung location: lower lobe of lung Pneumonia type: due to unspecified organism Qualified Code(s): J18.9 - Pneumonia, unspecified organism Code(s): J18.9 - Pneumonia, unspecified organism Status: Acute Assessment and Plan: see above (4) Diabetes mellitus with hyperglycemia: Code(s): E11.65 - Type 2 diabetes mellitus with hyperglycemia Status: Acute Assessment and Plan: sliding scale at this time (5) Chronic kidney disease, stage 3 (moderate): Code(s): N18.3 - Chronic kidney disease, stage 3 (moderate) Status: Acute Assessment and Plan: creatinine appears to be baseline monitor urine output, creatinine, electrolytes cautious hydration with IV fluids with bicarbonate (6) Hyperkalemia: Code(s): E87.5 - Hyperkalemia Status: Acute Assessment and Plan: secondary to CKD and acidosis Kayexalate ordered (7) Chronic GERD: Code(s): K21.9 - Gastro-esophageal reflux disease without esophagitis Status: Acute Assessment and Plan: patient is on Pepcid (8) Encephalopathy: Code(s): G93.40 - Encephalopathy, unspecified Status: Acute Assessment and Plan: patient has history of dementia. baseline mental status unknown head CT done at admission was negative check ammonia daily sedation holiday. currently off of sedation Additional Plan DVT prophylaxis - heparin subcu Stress ulcer prophylaxis - Pepcid Nutrition - NPO Code Status - Full Code Total Critical Care Time - 33 minutes Due to a high probability of clinically significant, life threatening deterioration, the patient required my highest level of preparedness to intervene emergently and I personally spent this critical care time directly and personally managing the patient. This critical care time included obtaining a history; examining the patient; pulse oximetry; ordering and review of studies; arranging urgent treatment with development of a management plan; evaluation of patient's response to treatment; frequent reassessment; and discussions with other providers. It was exclusive of separately billable procedures and treating other patients and teaching time. Please see Assessment and Plan section and the rest of the note for further information on patient assessment and treatment [employer] Consult Note Consult date: 08/01/19 Time Seen: 08:00 HPI: Baljeet Birmingham is a 69 year old male who was brought from detention yesterday with altered mental status. patient on pureed diet and detention due to dysphagia. his chest x-ray showed infiltrates bilaterally. CT head and CT abdomen pelvis also done. prema
[2019-08-01 11:00] LABS: Glucose Point of Care 180 (65-105)
[2019-08-01 11:14] LABS: Ammonia < 9 umol/L (9-30)
[2019-08-01 12:17] LABS: SARS-CoV-2 RNA PCR Negative
[2019-08-01 18:01] LABS: Glucose Point of Care 177 (65-105)
--- NOTE | 2019-08-01 18:40 | PM.IMPN ---
Progress Note: A&P Assessment and Plan (1) Respiratory failure: Code(s): J96.90 - Respiratory failure, unspecified, unspecified whether with hypoxia or hypercapnia Status: Acute Assessment and Plan: Patient is being treated for community-acquired pneumonia. I did speak to the check weigher who suggested that we change his antibiotic to vancomycin and cefepime. He had been started on a Zithromax and Rocephin. Patient has an allergy to penicillin but has tolerated cefepime in the past. Patient has been swabbed for covid 19. Patient is to be intubated and placed on a ventilator. Sales Vendor has already been consulted and I have received ventilator settings. Also I plan to put a central line in the patient. His blood pressures were on the low side and he was given 500 cc of normal saline on the floor and 1 L in the emergency room. However the patient tends to drop once the fluids have stopped. Was suggested that we slowly hydrate the patient. An order another echo. Possible aspiration pneumonia. Patient is still considered a full code. Check lactic in the morning. ABGs the morning. See protocol for ventilator status. 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 history of chronic disease he was found to be confused he was brought to the emergency department further evaluation initially he was admitted to medical floor with pneumonia his symptoms got worse he was hypoxic and was transferred to ICU and intubated currently on vent, patient have aspiration pneumonia, is unable to provide any review of symptoms (2) Pneumonia: Qualifiers: Laterality: bilateral Lung location: lower lobe of lung Pneumonia type: due to unspecified organism Qualified Code(s): J18.9 - Pneumonia, unspecified organism Code(s): J18.9 - Pneumonia, unspecified organism Status: Acute Assessment and Plan: See above. Patient is being placed on vancomycin and cefepime. Will get sputum specimen as well. He was tested for covid 19 and it is negative (3) Chronic atrial fibrillation: Code(s): I48.20 - Chronic atrial fibrillation, unspecified Status: Acute Assessment and Plan: Patient sounded regular at this time. He is not on any anticoagulation. (4) Chronic kidney disease, stage 3 (moderate): Code(s): N18.3 - Chronic kidney disease, stage 3 (moderate) Status: Acute Assessment and Plan: Patient is at his baseline please continue to monitor. 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 And I am unsure of his baseline. (6) Early onset Alzheimer's dementia without behavioral disturbance: Code(s): G30.0 - Alzheimer's disease with early onset; F02.80 - Dementia in other diseases classified elsewhere without behavioral disturbance Status: Acute Assessment and Plan: See above. 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 (8) Urinary tract infection: Qualifiers: Hematuria presence: without hematuria Urinary tract infection type: site unspecified Qualified Code(s): N39.0 - Urinary tract infection, site not specified Code(s): N39.0 - Urinary tract infection, site not specified Status: Acute Assessment and Plan: Patient had a multi drug resistant bacteria his last admission and was only sensitive to cefepime. It looks like it was ESBL and Pseudomonas aeruginosa. Will follow up on urine culture and sensitivity Subjective Date/time seen: 08/01/19 18:40 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 history of chr
[2019-08-01 23:53] LABS: Glucose Point of Care 193 (65-105)
[2019-08-02] VITALS (23 sets, daily range): BP systolic 99–148; BP diastolic 36–85; PULSE 68–85; RESP 18–22; TEMP 36.8–37.7; O2SAT 95–100
[2019-08-02 04:48] LABS: Alveolar/Arterial O2 Gradient 247.3 mmHg; Base Excess ABG 1.1 mEq/l (+/-2.0); Device VENTILATOR; Fractional Inspired Oxygen 50 %; HCO3 ABG 23.4 mEq/l (22.0-26.0); Modified Allen's Test Pass; Oxygen Content ABG 15.2 %vol (16.0-22.0); Oxygen Saturation ABG 96.4 % (95.0-100.0); Oxyhemoglobin 93.7 % THb (90.0-100.0); PCO2 ABG 30.1 mmHg (35.0-45.0); PO2 ABG 75.3 mmHg (80.0-100.0); PO2 FiO2 Ratio Arterial Blood 1.51 %; Site Drawn RIGHT RADIAL; Total Hemoglobin 11.5 g/dL (12.0-18.0); pH ABG 7.509 (7.350-7.450)
[2019-08-02 04:49] LABS: Arterial Blood Gas PEEP 8 cmH2O; Arterial Blood Gas Tidal Volume 480 ml; Arterial Blood Gas Vent Mode CMV; Arterial Blood Gas Ventilator rate 20 /MIN
[2019-08-02] MEDS: SODIUM BICARBONATE TAB 650 MG TABLET 1300 MG PO (06:03)
[2019-08-02 06:07] LABS: Basophils Percent Auto 0.5 % (0.2-1.2); Eosinophils Percent Auto 0.4 % (0-4.4); Hematocrit 26.8 % (42.0-52.0); Immature Granulocyte Absolute 0.15 K/mm3 (0.00-0.031); Immature Granulocyte Percent A 1.9 % (0-0.5); Lymphocytes Absolute Auto 1.06 K/mm3 (0.9-3.2); Lymphocytes Percent Auto 13.2 % (18.3-44.2); Mean Corpuscular HGB Conc 29.9 g/dl (32-36); Mean Corpuscular Hemoglobin 28.6 pg (26-34); Mean Corpuscular Volume 95.7 fl (80-100); Mean Platelet Volume 11.1 fl (7.4-10.4); Monocytes Absolute Auto 0.6 K/mm3 (0.1-0.6); Monocytes Percent Auto 7.7 % (2.6-8.5); Neutrophils Absolute Auto 6.2 K/mm3 (1.3-6.7); Neutrophils Percent Auto 76.3 % (45.5-73.1); Platelet Count Result 221 k/mm3 (150-375); Red Cell Distribution Width 14.7 % (11.5-14.5); White Blood Count 8.1 K/mm3 (4.5-10.0)
[2019-08-02 06:18] LABS: Glucose Point of Care 138 (65-105)
[2019-08-02 06:21] LABS: Alanine Aminotransferase 6 U/L (4-50); Albumin Level 2.7 g/dL (3.5-5.1); Alkaline Phosphatase 71 U/L (38-126); Aspartate Amino Transferase 12 U/L (17-59); Bilirubin,Total 0.2 mg/dL (0.2-1.3); Blood Urea Nitrogen 42 mg/dL (9-20); Carbon Dioxide 25 mmol/L (22-30); Chloride 107 mmol/L (98-107); Estimated CRCL calculation 57 ml/min; Estimated Glomerular Filt Rate 40; Glucose 151 mg/dL (75-110); Potassium 4.7 mmol/L (3.4-5.0); Sodium 137 mmol/L (137-145)
--- NOTE | 2019-08-02 07:35 | WPDINTPN ---
Progress Note: A&P Assessment and Plan (1) Acute respiratory failure: Code(s): J96.00 - Acute respiratory failure, unspecified whether with hypoxia or hypercapnia Status: Acute Assessment and Plan: Acute Respiratory failure multifactorial secondary to pneumonia which may be aspiration with CHF, baseline COPD Continue full mechanical ventilation support to prevent hypoxemia/hypercarbia and end organ damage. ABG and PCXR reviewed and will repeat in am. decrease tidal volume to 420, rate 18, FiO2 is at 50 %, peep is at a discontinue IV fluid as patient just came off Levophed will hold Lasix at this time Low tidal volume ventilation strategy to prevent volutrauma Bronchodilators blood and sputum culture pending at this time continue vancomycin cefepime and Flagyl COVID-19 ruled out SARS-CoV-2 PCR negative Patient was on Airborne, Droplet and Contact Isolation which has been discontinued ECHO 1. Left ventricular chamber dimension is normal. 2. Left ventricular systolic function is normal, estimated at 60-65%. 3. There is trace mitral valve regurgitation. (2) Septic shock: Code(s): A41.9 - Sepsis, unspecified organism; R65.21 - Severe sepsis with septic shock Status: Acute Assessment and Plan: secondary to pneumonia and UTI IV fluid bolus given in context of history of CHF cautious hydration echo reviewed Levophed weaned (3) Pneumonia: Qualifiers: Laterality: bilateral Lung location: lower lobe of lung Pneumonia type: due to unspecified organism Qualified Code(s): J18.9 - Pneumonia, unspecified organism Code(s): J18.9 - Pneumonia, unspecified organism Status: Acute Assessment and Plan: see above (4) Diabetes mellitus with hyperglycemia: Code(s): E11.65 - Type 2 diabetes mellitus with hyperglycemia Status: Acute Assessment and Plan: sliding scale at this time (5) Chronic kidney disease, stage 3 (moderate): Code(s): N18.3 - Chronic kidney disease, stage 3 (moderate) Status: Acute Assessment and Plan: creatinine appears to be baseline monitor urine output, creatinine, electrolytes cautious hydration with IV fluids with bicarbonate (6) Hyperkalemia: Code(s): E87.5 - Hyperkalemia Status: Acute Assessment and Plan: secondary to CKD and acidosis Kayexalate was given potassium level has normalized today (7) Chronic GERD: Code(s): K21.9 - Gastro-esophageal reflux disease without esophagitis Status: Acute Assessment and Plan: patient is on Pepcid (8) Encephalopathy: Code(s): G93.40 - Encephalopathy, unspecified Status: Acute Assessment and Plan: patient has history of dementia. baseline mental status unknown head CT done at admission was negative normal ammonia patient off sedation at this time and mental status has improved. he is following commands Additional Plan DVT prophylaxis - heparin subcu Stress ulcer prophylaxis - Pepcid Nutrition - start tube feeds today Code Status - Full Code Total Critical Care Time - 30 minutes Due to a high probability of clinically significant, life threatening deterioration, the patient required my highest level of preparedness to intervene emergently and I personally spent this critical care time directly and personally managing the patient. This critical care time included obtaining a history; examining the patient; pulse oximetry; ordering and review of studies; arranging urgent treatment with development of a management plan; evaluation of patient's response to treatment; frequent reassessment; and discussions with other providers. It was exclusive of separately billable procedures and treating other patients and teaching time. Please see Assessment and Plan section and the rest of the note for further information on patient assessment and treatment Subjective Date
--- NOTE | 2019-08-02 08:58 | ECG_ITS ---
Measurements Intervals Tyler Rate: 82 P: 62 ID: [id number] QRS: 59 QRSD: 122 T: 120 QT: 413 QTc: 485 Interpretive Statements SINUS RHYTHM RSR' IN V1 OR V2, CONSIDER RIGHT VENTRICULAR HYPERTROPHY OR RIGHT VCD NONSPECIFIC T-WAVE ABNORMALITY- DIFFUSE LEADS BORDERLINE ECG Electronically Signed On 08-04-2019 13:32:16 CDT by Bridger Bro D.O.
[2019-08-02] MEDS: metroNIDAZOLE 500 MG/ISO 100ML 500 MG/100 ML BAG 100 MG IVPB ×2 (09:31→16:40)
[2019-08-02] MEDS: FAMOTIDINE 20 MG/2 ML VIAL IV PUSH ×2 (09:32→20:01)
[2019-08-02] MEDS: HEPARIN SODIUM 5,000 UNITS/ML VIAL 5000 UNITS SUB-Q ×2 (09:32→20:01)
--- NOTE | 2019-08-02 10:23 | PCDIET ---
Nutrition Follow-Up Complete: Nutrition Diagnosis: Inadequate oral intake related to mechanical ventilation as evidenced by NPO status. Nutrition Goal: Patient to meet estimated nutritional needs Goal in progress. MD ordered to start tube feedings today. Vital 1.5 at goal rate of 60mL/hr x 22 hours/day will provide 1980kcal, 89g protein and 1008mL free water. Recommend 30mL water flush every 4 hours at this time. Last recorded weight is 148.5 kg which is increased, despite -I/O. Bowel Motility: No documented BM yet. Labs Reviewed: Glu (138), BUN (42), Cr (1.7), Lm Ca (9.04) Meds Noted: Albumin, Cefepime, Albuterol, Pepcid, Novolog, Atrovent, Flagyl, Versed, Levophed, Vancomycin Additional Notes: Posterior buttock macerated. No other skin breakdown documented. Will continue to monitor with same goal. Nutrition Monitoring and Evaluation: Will follow up every Thursday/Thursday. Follow daily in ICU rounds.
[2019-08-02] MEDS: ALBUMIN HUMAN 25% 25 GM/100 ML 100 ML IVPB ×2 (13:02→18:07)
[2019-08-02 13:11] LABS: Glucose Point of Care 129 (65-105)
[2019-08-02 14:22] LABS: Glucose Point of Care 120 (65-105)
[2019-08-02 17:32] LABS: Glucose Point of Care 141 (65-105)
--- NOTE | 2019-08-02 17:54 | PM.IMPN ---
Progress Note: A&P Assessment and Plan (1) Respiratory failure: Code(s): J96.90 - Respiratory failure, unspecified, unspecified whether with hypoxia or hypercapnia Status: Acute Assessment and Plan: Patient is being treated for community-acquired pneumonia. I did speak to the communications lead who suggested that we change his antibiotic to vancomycin and cefepime. He had been started on a Zithromax and Rocephin. Patient has an allergy to penicillin but has tolerated cefepime in the past. Patient has been swabbed for covid 19. Patient is to be intubated and placed on a ventilator. Telecommunications Specialist has already been consulted and I have received ventilator settings. Also I plan to put a central line in the patient. His blood pressures were on the low side and he was given 500 cc of normal saline on the floor and 1 L in the emergency room. However the patient tends to drop once the fluids have stopped. Was suggested that we slowly hydrate the patient. An order another echo. Possible aspiration pneumonia. Patient is still considered a full code. Check lactic in the morning. ABGs the morning. See protocol for ventilator status. 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 history of chronic respiratory disease he was found to be confused he was brought to the emergency department further evaluation initially he was admitted to medical floor with pneumonia his symptoms got worse he was hypoxic and was transferred to ICU and intubated on 07/31, COVID-19 is negative, currently on vent, patient have aspiration pneumonia, is unable to provide any review of symptoms (2) Pneumonia: Qualifiers: Laterality: bilateral Lung location: lower lobe of lung Pneumonia type: due to unspecified organism Qualified Code(s): J18.9 - Pneumonia, unspecified organism Code(s): J18.9 - Pneumonia, unspecified organism Status: Acute Assessment and Plan: See above. Patient is being placed on vancomycin and cefepime. Will get sputum specimen as well. He was tested for covid 19 and it is negative (3) Chronic atrial fibrillation: Code(s): I48.20 - Chronic atrial fibrillation, unspecified Status: Acute Assessment and Plan: Patient sounded regular at this time. He is not on any anticoagulation. (4) Chronic kidney disease, stage 3 (moderate): Code(s): N18.3 - Chronic kidney disease, stage 3 (moderate) Status: Acute Assessment and Plan: Patient is at his baseline please continue to monitor. 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 And I am unsure of his baseline. (6) Early onset Alzheimer's dementia without behavioral disturbance: Code(s): G30.0 - Alzheimer's disease with early onset; F02.80 - Dementia in other diseases classified elsewhere without behavioral disturbance Status: Acute Assessment and Plan: See above. 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 (8) Urinary tract infection: Qualifiers: Hematuria presence: without hematuria Urinary tract infection type: site unspecified Qualified Code(s): N39.0 - Urinary tract infection, site not specified Code(s): N39.0 - Urinary tract infection, site not specified Status: Acute Assessment and Plan: Patient had a multi drug resistant bacteria his last admission and was only sensitive to cefepime. It looks like it was ESBL and Pseudomonas aeruginosa. Will follow up on urine culture and sensitivity, urine culture is growing E coli will follow-up on
[2019-08-03] VITALS (19 sets, daily range): BP systolic 109–175; BP diastolic 52–99; PULSE 67–98; RESP 18–28; TEMP 36.6–37.4; O2SAT 93–100
[2019-08-03 00:33] LABS: Glucose Point of Care 124 (65-105)
[2019-08-03] MEDS: metroNIDAZOLE 500 MG/ISO 100ML 500 MG/100 ML BAG 100 MG IVPB ×2 (00:33→07:24)
[2019-08-03] MEDS: ALBUMIN HUMAN 25% 25 GM/100 ML 100 ML IVPB ×5 (00:33→23:54)
[2019-08-03 05:06] LABS: Base Excess ABG 1.4 mEq/l (+/-2.0); Carboxyhemoglobin 1.7 % THb (0-2.0); Fractional Inspired Oxygen 40 %; HCO3 ABG 25.8 mEq/l (22.0-26.0); Methemoglobin ABG 0.3 %THb (0-1.5); Oxygen Content ABG 10.5 %vol (16.0-22.0); Oxygen Saturation ABG 95.4 % (95.0-100.0); Oxyhemoglobin 92.5 % THb (90.0-100.0); PCO2 ABG 39.6 mmHg (35.0-45.0); PO2 ABG 74.7 mmHg (80.0-100.0); PO2 FiO2 Ratio Arterial Blood 1.87 %; Reduced Hemoglobin 5.5 %THb (0-5.0); pH ABG 7.431 (7.350-7.450)
[2019-08-03 05:08] LABS: Site Drawn RIGHT RADIAL
[2019-08-03 05:09] LABS: Arterial Blood Gas Ventilator rate 18 /MIN; Device VENTILATOR; Modified Allen's Test Pass
[2019-08-03 05:10] LABS: Arterial Blood Gas PEEP 8 cmH2O; Arterial Blood Gas Tidal Volume 420 ml; Arterial Blood Gas Vent Mode CMV
[2019-08-03 05:20] LABS: Albumin Level 3.3 g/dL (3.5-5.1); Alkaline Phosphatase 70 U/L (38-126); Aspartate Amino Transferase 11 U/L (17-59); Bilirubin,Total 0.3 mg/dL (0.2-1.3); Blood Urea Nitrogen 33 mg/dL (9-20); Calcium 8.2 mg/dL (8.4-10.2); Carbon Dioxide 28 mmol/L (22-30); Chloride 106 mmol/L (98-107); Estimated CRCL calculation 69 ml/min; Estimated Glomerular Filt Rate 50; Glucose 174 mg/dL (75-110); Magnesium 1.9 mg/dL (1.6-2.3); Potassium 3.7 mmol/L (3.4-5.0); Sodium 139 mmol/L (137-145)
[2019-08-03 05:42] LABS: Basophils Percent Auto 0.3 % (0.2-1.2); Eosinophils Absolute Auto 0.1 K/mm3 (0-0.3); Eosinophils Percent Auto 1.1 % (0-4.4); Hematocrit 25.9 % (42.0-52.0); Hemoglobin 7.7 g/dL (14.0-18.0); Immature Granulocyte Absolute 0.11 K/mm3 (0.00-0.031); Immature Granulocyte Percent A 1.4 % (0-0.5); Lymphocytes Absolute Auto 0.86 K/mm3 (0.9-3.2); Lymphocytes Percent Auto 10.8 % (18.3-44.2); Mean Corpuscular HGB Conc 29.7 g/dl (32-36); Mean Corpuscular Hemoglobin 28.7 pg (26-34); Mean Corpuscular Volume 96.6 fl (80-100); Mean Platelet Volume 11.4 fl (7.4-10.4); Monocytes Absolute Auto 0.8 K/mm3 (0.1-0.6); Monocytes Percent Auto 9.6 % (2.6-8.5); Neutrophils Absolute Auto 6.1 K/mm3 (1.3-6.7); Neutrophils Percent Auto 76.8 % (45.5-73.1); Nucleated Red Blood Cells Perc 0.3 % (0.0-0.2); Platelet Count Result 200 k/mm3 (150-375); Red Blood Count 2.68 M/mm3 (4.6-6.20); Red Cell Distribution Width 14.7 % (11.5-14.5)
[2019-08-03 05:49] LABS: Vancomycin Trough 24.6 ug/mL (10.0-20.0)
[2019-08-03 06:50] LABS: Alanine Aminotransferase 5 U/L (4-50)
--- NOTE | 2019-08-03 07:04 | P.CDI_ITS ---
CDI Query Clarification Request TWO QUERIES 1) Severe sepsis with septic shock has been documented by electronic test technician Pt diagnosed with pneumonia and UTI Pt on Levophed drip No mention of sepsis/septic shock by hospitalists Please clarify if severe sepsis with septic shock has been ruled in or ruled out. 2) UTI has been documented Chronic indwelling little catheter has been documented Please clarify if UTI is: * Due to chronic indwelling little catheter * Not due to chronic indwelling little catheter * Unable to determine <Linda Leonard RN - Last Filed: 08/03/19 07:08>
--- NOTE | 2019-08-03 07:04 | WPDCDIQUERY2 ---
CDI Query Clarification Request TWO QUERIES 1) Severe sepsis with septic shock has been documented by professional services consultant Pt diagnosed with pneumonia and UTI Pt on Levophed drip No mention of sepsis/septic shock by hospitalists Please clarify if severe sepsis with septic shock has been ruled in or ruled out. 2) UTI has been documented Chronic indwelling little catheter has been documented Please clarify if UTI is: Due to chronic indwelling little catheter Not due to chronic indwelling little catheter Unable to determine <Linda Leonard RN - Last Filed: 08/03/19 07:08>
[2019-08-03] MEDS: FUROSEMIDE INJ 40 MG/4 ML VIAL IV PUSH (07:24)
--- NOTE | 2019-08-03 07:30 | WPDINTPN ---
Progress Note: A&P Assessment and Plan (1) Acute respiratory failure: Code(s): J96.00 - Acute respiratory failure, unspecified whether with hypoxia or hypercapnia Status: Acute Assessment and Plan: Acute Respiratory failure multifactorial secondary to pneumonia which may be aspiration with CHF, baseline COPD Continue full mechanical ventilation support to prevent hypoxemia/hypercarbia and end organ damage. ABG and PCXR reviewed and will repeat in am. decrease PEEP to 5 will attempt a weaning trial today Lasix 40 mg IV x1 Low tidal volume ventilation strategy to prevent volutrauma Bronchodilators blood and sputum culture negative at this time DC vancomycin, cefepime and Flagyl start ertapenem - although penicillin is listed as allergy but I confirmed with patient and he denies he has any allergy to penicillin. COVID-19 ruled out SARS-CoV-2 PCR negative Patient was on Airborne, Droplet and Contact Isolation which has been discontinued ECHO 1. Left ventricular chamber dimension is normal. 2. Left ventricular systolic function is normal, estimated at 60-65%. 3. There is trace mitral valve regurgitation. (2) Urinary tract infection: Qualifiers: Hematuria presence: without hematuria Urinary tract infection type: site unspecified Qualified Code(s): N39.0 - Urinary tract infection, site not specified Code(s): N39.0 - Urinary tract infection, site not specified Status: Acute Assessment and Plan: urine is growing ESBL E coli although in-vitro it is susceptible to cefepime but effectiveness is questionable hence will switch cefepime to Invanz (3) Septic shock: Code(s): A41.9 - Sepsis, unspecified organism; R65.21 - Severe sepsis with septic shock Status: Acute Assessment and Plan: secondary to pneumonia and UTI IV fluid bolus given in context of history of CHF cautious hydration echo reviewed Levophed weaned off (4) Pneumonia: Qualifiers: Laterality: bilateral Lung location: lower lobe of lung Pneumonia type: due to unspecified organism Qualified Code(s): J18.9 - Pneumonia, unspecified organism Code(s): J18.9 - Pneumonia, unspecified organism Status: Acute Assessment and Plan: see above (5) Diabetes mellitus with hyperglycemia: Code(s): E11.65 - Type 2 diabetes mellitus with hyperglycemia Status: Acute Assessment and Plan: sliding scale at this time (6) Chronic kidney disease, stage 3 (moderate): Code(s): N18.3 - Chronic kidney disease, stage 3 (moderate) Status: Acute Assessment and Plan: creatinine appears to be baseline monitor urine output, creatinine, electrolytes cautious hydration with IV fluids with bicarbonate (7) Hyperkalemia: Code(s): E87.5 - Hyperkalemia Status: Acute Assessment and Plan: secondary to CKD and acidosis Kayexalate was given potassium level has normalized (8) Chronic GERD: Code(s): K21.9 - Gastro-esophageal reflux disease without esophagitis Status: Acute Assessment and Plan: patient is on Pepcid (9) Encephalopathy: Code(s): G93.40 - Encephalopathy, unspecified Status: Acute Assessment and Plan: patient has history of dementia. baseline mental status unknown head CT done at admission was negative normal ammonia patient off sedation at this time and mental status has improved. he is following commands Additional Plan DVT prophylaxis - heparin subcu Stress ulcer prophylaxis - Pepcid Nutrition - start tube feeds today Code Status - Full Code Total Critical Care Time - 32 minutes Due to a high probability of clinically significant, life threatening deterioration, the patient required my highest level of preparedness to intervene emergently and I personally spent this critical care time directly and personally managing the patient.
[2019-08-03] MEDS: HEPARIN SODIUM 5,000 UNITS/ML VIAL 5000 UNITS SUB-Q ×2 (09:24→20:57)
[2019-08-03] MEDS: ERTAPENEM 1 GM/NS 50 ML 1 GM/50 ML BAG IVPB (09:24)
--- NOTE | 2019-08-03 11:11 | PCDIET ---
Nutrition Follow-Up Complete: Nutrition Diagnosis: Inadequate oral intake related to mechanical ventilation as evidenced by NPO. Nutrition Goal: Patient to meet estimated nutritional needs Goal in progress. Patient previously tolerating Vital 1.5 and was advancing toward goal rate; however, tube feedings now on hold for possible extubation. Recommend resuming tube feedings if unable to extubated. Last recorded weight is 148.5 kg. Recommend obtaining new weight. Bowel Motility: No documented BM. Labs Reviewed: Hgb (7.7), Hct (25.9), Glu (174), BUN (33), Cr (1.4), Ca (8.2) Meds Noted: Albumin, Pepcid, Fentanyl, Albuterol, Novolog, Atrovent, Invanz, Versed, Levophed Additional Notes: Buttocks macerated. No other skin issues noted. Will continue to monitor with same goals. Nutrition Monitoring and Evaluation: Will monitor every Thursday/Thursday.
[2019-08-03 11:48] LABS: Alveolar/Arterial O2 Gradient 149.7 mmHg; Base Excess ABG 1.3 mEq/l (+/-2.0); Carboxyhemoglobin 1.5 % THb (0-2.0); Fractional Inspired Oxygen 40 %; HCO3 ABG 25.7 mEq/l (22.0-26.0); Methemoglobin ABG 0.3 %THb (0-1.5); Oxygen Content ABG 15.6 %vol (16.0-22.0); Oxyhemoglobin 94.8 % THb (90.0-100.0); PO2 ABG 89.5 mmHg (80.0-100.0); PO2 FiO2 Ratio Arterial Blood 2.24 %; Reduced Hemoglobin 3.4 %THb (0-5.0); Total Hemoglobin 11.6 g/dL (12.0-18.0); pH ABG 7.426 (7.350-7.450)
[2019-08-03 11:49] LABS: Arterial Blood Gas Ventilator rate 0 /MIN; Device VENTILATOR; Modified Allen's Test Pass; Site Drawn LEFT RADIAL
[2019-08-03 11:50] LABS: Arterial Blood Gas PEEP 5 cmH2O; Arterial Blood Gas Pressure Support 5 cmH2O; Arterial Blood Gas Vent Mode SPONTANEOUS
--- NOTE | 2019-08-03 11:57 | PM.EVENT ---
Event Note Event Note Event Note: 5/5 PSV SBT done for more than 1 hour. RSBI, ABGI and Vitals acceptable. Pt awake and following commands. Will extubate and monitor. NPO for now. Bipap PRN
[2019-08-03 12:28] LABS: Glucose Point of Care 178 (65-105)
--- NOTE | 2019-08-03 16:26 | PM.IMPN ---
Progress Note: A&P Assessment and Plan (1) Respiratory failure: Code(s): J96.90 - Respiratory failure, unspecified, unspecified whether with hypoxia or hypercapnia Status: Acute Assessment and Plan: Patient is being treated for community-acquired pneumonia. I did speak to the manager transportation planning who suggested that we change his antibiotic to vancomycin and cefepime. He had been started on a Zithromax and Rocephin. Patient has an allergy to penicillin but has tolerated cefepime in the past. Patient has been swabbed for covid 19. Patient is to be intubated and placed on a ventilator. Battery Service Technician has already been consulted and I have received ventilator settings. Also I plan to put a central line in the patient. His blood pressures were on the low side and he was given 500 cc of normal saline on the floor and 1 L in the emergency room. However the patient tends to drop once the fluids have stopped. Was suggested that we slowly hydrate the patient. An order another echo. Possible aspiration pneumonia. Patient is still considered a full code. Check lactic in the morning. ABGs the morning. See protocol for ventilator status. 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 history of chronic respiratory disease he was found to be confused he was brought to the emergency department further evaluation initially he was admitted to medical floor with pneumonia his symptoms got worse he was hypoxic and was transferred to ICU and intubated on 07/31, COVID-19 is negative, today patient with extubated is feeling little better able to provide some review of symptom denies any shortness of breath fever or chills, his urine is growing E coli ESBL, vancomycin cefepim and Flagyl were stopped and patient started on Ivanz, patient x-ray shows improvement does not show any significant pneumonia (2) Pneumonia: Qualifiers: Laterality: bilateral Lung location: lower lobe of lung Pneumonia type: due to unspecified organism Qualified Code(s): J18.9 - Pneumonia, unspecified organism Code(s): J18.9 - Pneumonia, unspecified organism Status: Acute Assessment and Plan: See above. Blood culture still no growth (3) Chronic atrial fibrillation: Code(s): I48.20 - Chronic atrial fibrillation, unspecified Status: Acute Assessment and Plan: Patient sounded regular at this time. He is not on any anticoagulation. (4) Chronic kidney disease, stage 3 (moderate): Code(s): N18.3 - Chronic kidney disease, stage 3 (moderate) Status: Acute Assessment and Plan: Patient is at his baseline please continue to monitor. 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 And I am unsure of his baseline. (6) Early onset Alzheimer's dementia without behavioral disturbance: Code(s): G30.0 - Alzheimer's disease with early onset; F02.80 - Dementia in other diseases classified elsewhere without behavioral disturbance Status: Acute Assessment and Plan: See above. 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 (8) Urinary tract infection: Qualifiers: Hematuria presence: without hematuria Urinary tract infection type: site unspecified Qualified Code(s): N39.0 - Urinary tract infection, site not specified Code(s): N39.0 - Urinary tract infection, site not specified Status: Acute Assessment and Plan: Patient had a multi drug resistant bacteria his last admission and was only sensitive to cefepime. Urine is growing E coli ESBL intensivi
[2019-08-03 18:28] LABS: Glucose Point of Care 145 (65-105)
[2019-08-03] MEDS: FAMOTIDINE 20 MG/2 ML VIAL IV PUSH (20:57)
[2019-08-03 23:36] LABS: Glucose Point of Care 155 (65-105)
[2019-08-04] VITALS (13 sets, daily range): BP systolic 132–159; BP diastolic 44–98; PULSE 67–83; RESP 16–27; TEMP 36.3–36.7; O2SAT 91–99
[2019-08-04 04:15] LABS: Basophils Percent Auto 0.5 % (0.2-1.2); Eosinophils Absolute Auto 0.1 K/mm3 (0-0.3); Eosinophils Percent Auto 1.9 % (0-4.4); Hematocrit 26.3 % (42.0-52.0); Hemoglobin 7.8 g/dL (14.0-18.0); Immature Granulocyte Percent A 4.1 % (0-0.5); Mean Corpuscular HGB Conc 29.7 g/dl (32-36); Mean Corpuscular Hemoglobin 28.6 pg (26-34); Mean Corpuscular Volume 96.3 fl (80-100); Mean Platelet Volume 10.9 fl (7.4-10.4); Monocytes Absolute Auto 0.8 K/mm3 (0.1-0.6); Monocytes Percent Auto 11.2 % (2.6-8.5); Neutrophils Absolute Auto 4.9 K/mm3 (1.3-6.7); Neutrophils Percent Auto 67.3 % (45.5-73.1); Platelet Count Result 227 k/mm3 (150-375); Red Blood Count 2.73 M/mm3 (4.6-6.20); Red Cell Distribution Width 14.4 % (11.5-14.5); White Blood Count 7.3 K/mm3 (4.5-10.0)
[2019-08-04 04:29] LABS: Albumin Level 3.8 g/dL (3.5-5.1); Alkaline Phosphatase 61 U/L (38-126); Aspartate Amino Transferase 11 U/L (17-59); Bilirubin,Total 0.4 mg/dL (0.2-1.3); Blood Urea Nitrogen 27 mg/dL (9-20); Calcium 8.9 mg/dL (8.4-10.2); Carbon Dioxide 33 mmol/L (22-30); Chloride 103 mmol/L (98-107); Estimated CRCL calculation 80 ml/min; Estimated Glomerular Filt Rate 60; Glucose 148 mg/dL (75-110); Magnesium 1.8 mg/dL (1.6-2.3); Potassium 3.3 mmol/L (3.4-5.0); Sodium 141 mmol/L (137-145)
[2019-08-04 05:37] LABS: Alanine Aminotransferase < 6 U/L (4-50)
[2019-08-04] MEDS: ALBUMIN HUMAN 25% 25 GM/100 ML 100 ML IVPB ×4 (05:48→23:35)
[2019-08-04] MEDS: HEPARIN SODIUM 5,000 UNITS/ML VIAL 5000 UNITS SUB-Q ×2 (09:02→21:14)
[2019-08-04] MEDS: FAMOTIDINE 20 MG/2 ML VIAL IV PUSH ×2 (09:02→21:14)
[2019-08-04] MEDS: ERTAPENEM 1 GM/NS 50 ML 1 GM/50 ML BAG IVPB (09:59)
--- NOTE | 2019-08-04 10:43 | PCDIET ---
ICU Rounding Note: Patient is NPO following extubation yesterday. Plan for swallow study today which is appropriate, given intubation and hx pureed diet, thickened liquids. If unable to safely advance diet, will provide enteral feeding recommendations. Recommend K+ replacement, if medically appropriate. Last recorded weight is 144.9kg which is decreased. -I/O. Bowel Motility: No documented BM. Labs Reviewed: Hgb (7.8), Hct (26.3), Glu (148), BUN (27), K (3.3), Alb (3.8) Meds Noted: Albumin, Pepcid, Levophed, Albuterol, Novolog, Invanz, Atrovent Additional Notes: Posterior buttocks macerated. Following daily in ICU rounds. Assessing/reassessing every 3 days.
--- NOTE | 2019-08-04 12:36 | WPDINTPN ---
Progress Note: A&P Assessment and Plan (1) Acute respiratory failure: Code(s): J96.00 - Acute respiratory failure, unspecified whether with hypoxia or hypercapnia Status: Acute Assessment and Plan: Acute Respiratory failure multifactorial secondary to pneumonia which may be aspiration with CHF, baseline COPD - extubated 08/03/2019. - continue bronchodilators - blood and sputum culture negative at this time, DC vancomycin, cefepime and Flagyl - urine cultures positive for ESBL E coli, patient on ertapenem - NEGATIVE COVID-19 ruled out - SARS-CoV-2 PCR negative ECHO 1. Left ventricular chamber dimension is normal. 2. Left ventricular systolic function is normal, estimated at 60-65%. 3. There is trace mitral valve regurgitation. (2) Urinary tract infection: Qualifiers: Hematuria presence: without hematuria Urinary tract infection type: site unspecified Qualified Code(s): N39.0 - Urinary tract infection, site not specified Code(s): N39.0 - Urinary tract infection, site not specified Status: Acute Assessment and Plan: urine is growing ESBL E coli - CONTINUE ERTAPENEM (3) Septic shock: Code(s): A41.9 - Sepsis, unspecified organism; R65.21 - Severe sepsis with septic shock Status: Acute Assessment and Plan: RESOLVED: secondary to pneumonia and UTI - patient off Levophed (4) Pneumonia: Qualifiers: Laterality: bilateral Lung location: lower lobe of lung Pneumonia type: due to unspecified organism Qualified Code(s): J18.9 - Pneumonia, unspecified organism Code(s): J18.9 - Pneumonia, unspecified organism Status: Acute Assessment and Plan: see above (5) Diabetes mellitus with hyperglycemia: Code(s): E11.65 - Type 2 diabetes mellitus with hyperglycemia Status: Acute Assessment and Plan: sliding scale at this time (6) Chronic kidney disease, stage 3 (moderate): Code(s): N18.3 - Chronic kidney disease, stage 3 (moderate) Status: Acute Assessment and Plan: creatinine appears to be improving monitor urine output, creatinine, electrolytes cautious hydration with IV fluids with bicarbonate (7) Hyperkalemia: Code(s): E87.5 - Hyperkalemia Status: Acute Assessment and Plan: RESOLVED: secondary to CKD and acidosis (8) Chronic GERD: Code(s): K21.9 - Gastro-esophageal reflux disease without esophagitis Status: Acute Assessment and Plan: patient is on Pepcid (9) Encephalopathy: Code(s): G93.40 - Encephalopathy, unspecified Status: Acute Assessment and Plan: RESOLVED: patient has history of dementia. baseline mental status unknown - head CT done at admission was negative - normal ammonia - patient was successfully extubated on 08/03/2019, is awake, alert, to questions and follows simple commands Additional Plan DVT prophylaxis - heparin subcu Stress ulcer prophylaxis - Pepcid Nutrition - bedside swallow evaluation by speech therapy to be done today Code Status - Full Code Total Critical Care Time - 32 minutes Due to a high probability of clinically significant, life threatening deterioration, the patient required my highest level of preparedness to intervene emergently and I personally spent this critical care time directly and personally managing the patient. This critical care time included obtaining a history; examining the patient; pulse oximetry; ordering and review of studies; arranging urgent treatment with development of a management plan; evaluation of patient's response to treatment; frequent reassessment; and discussions with other providers. It was exclusive of separately billable procedures and treating other patients and teaching time. Please see Assessment and Plan section and the rest of the note for further information on patient assessment and treatment Subjec
--- NOTE | 2019-08-04 14:39 | PM.IMPN ---
Progress Note: A&P Assessment and Plan (1) Respiratory failure: Code(s): J96.90 - Respiratory failure, unspecified, unspecified whether with hypoxia or hypercapnia Status: Acute Assessment and Plan: Patient is being treated for community-acquired pneumonia. I did speak to the artists' model who suggested that we change his antibiotic to vancomycin and cefepime. He had been started on a Zithromax and Rocephin. Patient has an allergy to penicillin but has tolerated cefepime in the past. Patient has been swabbed for covid 19. Patient is to be intubated and placed on a ventilator. Payroll And Benefits Specialist has already been consulted and I have received ventilator settings. Also I plan to put a central line in the patient. His blood pressures were on the low side and he was given 500 cc of normal saline on the floor and 1 L in the emergency room. However the patient tends to drop once the fluids have stopped. Was suggested that we slowly hydrate the patient. An order another echo. Possible aspiration pneumonia. Patient is still considered a full code. Check lactic in the morning. ABGs the morning. See protocol for ventilator status. 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 history of chronic respiratory disease he was found to be confused he was brought to the emergency department further evaluation initially he was admitted to medical floor with pneumonia his symptoms got worse he was hypoxic and was transferred to ICU and intubated on 07/31, COVID-19 is negative, on 08/01 patient with extubated was feeling little better able to provide some review of symptom, denied any shortness of breath fever or chills, similarly he feeling better, he is on 1 L NC, he did have bedside swallow study and MDS is recommended, his urine is growing E coli ESBL, most likely 2/2 chronic indeweling cathter, vancomycin cefepim and Flagyl were stopped artists' model and patient started on Ivanz, patient x-ray shows improvement does not show any significant pneumonia, he is clinically stable, will transfer him out of ICU to [facility] (2) Pneumonia: Qualifiers: Laterality: bilateral Lung location: lower lobe of lung Pneumonia type: due to unspecified organism Qualified Code(s): J18.9 - Pneumonia, unspecified organism Code(s): J18.9 - Pneumonia, unspecified organism Status: Acute Assessment and Plan: See above. Blood culture still no growth (3) Chronic atrial fibrillation: Code(s): I48.20 - Chronic atrial fibrillation, unspecified Status: Acute Assessment and Plan: Patient sounded regular at this time. He is not on any anticoagulation. (4) Chronic kidney disease, stage 3 (moderate): Code(s): N18.3 - Chronic kidney disease, stage 3 (moderate) Status: Acute Assessment and Plan: Patient is at his baseline please continue to monitor. 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 And I am unsure of his baseline. (6) Early onset Alzheimer's dementia without behavioral disturbance: Code(s): G30.0 - Alzheimer's disease with early onset; F02.80 - Dementia in other diseases classified elsewhere without behavioral disturbance Status: Acute Assessment and Plan: See above. 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 (8) Urinary tract infection: Qualifiers: Hematuria presence: without hematuria Urinary tract infection type: site unspecified Qualified Code(s): N39.0 - Urinary tract infection, site not specified Code(s): N39.
[2019-08-04 15:30] LABS: Glucose Point of Care 152 (65-105)
[2019-08-04 17:55] LABS: Glucose Point of Care 165 (65-105)
[2019-08-04 21:53] LABS: Glucose Point of Care 174 (65-105)
[2019-08-05] VITALS (10 sets, daily range): BP systolic 132–156; BP diastolic 55–77; PULSE 64–89; RESP 20–24; TEMP 36.3–36.7; O2SAT 91–99
[2019-08-05 05:24] LABS: Albumin Level 4.1 g/dL (3.5-5.1); Alkaline Phosphatase 55 U/L (38-126); Aspartate Amino Transferase 12 U/L (17-59); Bilirubin,Total 0.3 mg/dL (0.2-1.3); Blood Urea Nitrogen 22 mg/dL (9-20); Carbon Dioxide 32 mmol/L (22-30); Chloride 102 mmol/L (98-107); Estimated CRCL calculation 79 ml/min; Estimated Glomerular Filt Rate 60; Glucose 146 mg/dL (75-110); Magnesium 1.7 mg/dL (1.6-2.3); Potassium 3.6 mmol/L (3.4-5.0); Sodium 142 mmol/L (137-145)
[2019-08-05 05:25] LABS: Basophils Absolute Auto 0.1 K/mm3 (0.0-0.1); Basophils Percent Auto 0.7 % (0.2-1.2); Eosinophils Absolute Auto 0.3 K/mm3 (0-0.3); Eosinophils Percent Auto 3.3 % (0-4.4); Hematocrit 28.5 % (42.0-52.0); Hemoglobin 8.5 g/dL (14.0-18.0); Immature Granulocyte Percent A 5.2 % (0-0.5); Lymphocytes Absolute Auto 1.36 K/mm3 (0.9-3.2); Lymphocytes Percent Auto 17.8 % (18.3-44.2); Mean Corpuscular HGB Conc 29.8 g/dl (32-36); Mean Corpuscular Hemoglobin 28.9 pg (26-34); Mean Corpuscular Volume 96.9 fl (80-100); Monocytes Absolute Auto 0.9 K/mm3 (0.1-0.6); Monocytes Percent Auto 11.5 % (2.6-8.5); Neutrophils Absolute Auto 4.7 K/mm3 (1.3-6.7); Neutrophils Percent Auto 61.5 % (45.5-73.1); Platelet Count Result 250 k/mm3 (150-375); Red Blood Count 2.94 M/mm3 (4.6-6.20); Red Cell Distribution Width 14.3 % (11.5-14.5); White Blood Count 7.7 K/mm3 (4.5-10.0)
[2019-08-05] MEDS: ALBUMIN HUMAN 25% 12.5 GM/50ML 100 ML IVPB (05:31)
[2019-08-05 06:15] LABS: Alanine Aminotransferase < 6 U/L (4-50)
[2019-08-05 07:55] LABS: Glucose Point of Care 161 (65-105)
[2019-08-05] MEDS: ERTAPENEM 1 GM/NS 50 ML 1 GM/50 ML BAG IVPB (08:24)
[2019-08-05] MEDS: FAMOTIDINE 20 MG/2 ML VIAL IV PUSH ×2 (08:25→21:07)
[2019-08-05] MEDS: HEPARIN SODIUM 5,000 UNITS/ML VIAL 5000 UNITS SUB-Q ×2 (08:25→21:08)
[2019-08-05] MEDS: AMLODIPINE BESYLATE 5 MG TABLET 10 MG PO (11:26)
[2019-08-05] MEDS: polyethylene glycoL 3350 17 GM POWD.PACK PO (11:26)
[2019-08-05] MEDS: lisinopriL 10 MG TABLET PO (11:26)
[2019-08-05] MEDS: SERTRALINE HCL 50 MG TABLET 200 MG PO (11:27)
[2019-08-05] MEDS: FOLIC ACID 1 MG TABLET PO (11:27)
[2019-08-05] MEDS: PREGABALIN 50 MG CAPSULE 200 MG PO ×2 (11:27→21:06)
[2019-08-05 11:28] LABS: Glucose Point of Care 166 (65-105)
--- NOTE | 2019-08-05 14:02 | PCDIET ---
Nutrition Follow-Up Complete: Inadequate Oral Intake as related to Mechanical Ventilation as evidenced by NPO Meet estimated nutritional needs Goal: Progressing towards goal. Continue current goal. Pt current nutrition is puree/regular per MBS. Nutrition recommendation: Agree Last recorded weight is 137.5 kg (146.4kg on admit) Wt loss appropriate due to Morbid obesity Bowel Motility: no bm noted, motility agent on board Labs Reviewed:Hgb/Hct 8.5, 28.5, BUN 22, Glucose 146 Meds Noted:Folic Acid, Heparin, Miralax, Lyrica Additional Notes: Pt with MBS yesterday recommending puree foods and thin liquids with no straws. Pt eating average of 68% of meals. Feels he is getting enough off of trays. No N/V. No BM noted, miralax provided. We will continue to monitor for adequate intake every five days.
--- NOTE | 2019-08-05 15:41 | PM.IMPN ---
Progress Note: A&P Assessment and Plan (1) Urinary tract infection: Qualifiers: Hematuria presence: without hematuria Urinary tract infection type: site unspecified Qualified Code(s): N39.0 - Urinary tract infection, site not specified Code(s): N39.0 - Urinary tract infection, site not specified Status: Acute Assessment and Plan: -----UA growing E coli ESBL. Continue imipenem. White blood cell count within normal limits. Will make sure his Cazares catheter has been changed since being admitted. (2) Pneumonia: Qualifiers: Laterality: bilateral Lung location: lower lobe of lung Pneumonia type: due to unspecified organism Qualified Code(s): J18.9 - Pneumonia, unspecified organism Code(s): J18.9 - Pneumonia, unspecified organism Status: Acute Assessment and Plan: -----chest x-ray shows possible pneumonia. COVID-19 negative. Continue imipenem. The patient's cough has improved but he still having sputum production occasionally. Will try to get a sputum sample. Will wean O2 (3) Respiratory failure: Code(s): J96.90 - Respiratory failure, unspecified, unspecified whether with hypoxia or hypercapnia Status: Acute Assessment and Plan: -----resolved. Likely due to pneumonia. COVID ruled out. Will likely be able to be weaned off oxygen today. (4) Chronic atrial fibrillation: Code(s): I48.20 - Chronic atrial fibrillation, unspecified Status: Acute Assessment and Plan: -----not on anticoagulation at this time. Telemetry shows normal sinus rhythm (5) Chronic kidney disease, stage 3 (moderate): Code(s): N18.3 - Chronic kidney disease, stage 3 (moderate) Status: Acute Assessment and Plan: -----stable. Monitor (6) Dementia in other diseases classified elsewhere with behavioral disturbance: Code(s): F02.81 - Dementia in other diseases classified elsewhere with behavioral disturbance Status: Acute Assessment and Plan: -----I spoke to the family about the patient's dementia. He wax and wanes frequently. The alf mentioned hospice and the family is considering it for his dementia but would like full treatment here at this hospital. (7) Early onset Alzheimer's dementia without behavioral disturbance: Code(s): G30.0 - Alzheimer's disease with early onset; F02.80 - Dementia in other diseases classified elsewhere without behavioral disturbance Status: Acute Assessment and Plan: -----see above. (8) Type 2 diabetes mellitus with other diabetic neurological complication: Code(s): E11.49 - Type 2 diabetes mellitus with other diabetic neurological complication Status: Acute Assessment and Plan: -----last glucose 166. Continue sliding scale insulin (9) Septic shock: Code(s): A41.9 - Sepsis, unspecified organism; R65.21 - Severe sepsis with septic shock Status: Acute Assessment and Plan: ------resolved. Upon patient was hypotensive was started on levaphed and met criteria for sepsis, most likely due to UTI and pneumonia Time Spent With Patient Time with patient: 25 - 35 minutes Subjective Date/time seen: 08/05/19 15:41 Interval history: Pt is a 69-year-old male here for UTI and pneumonia. Patient was seen today and states that he has body aches but overall doing okay. He is not having any shortness of breath. He still does have cough that produces sputum occasionally. He denies fevers, chills, abdominal pain, nausea, vomiting, constipation or diarrhea. He says he is not usually on oxygen at home. I was called by care coordination and was told that hospice came to the hospital to see him. It is unclear what hospice was called as they said they were called by the alf. I called and talked to the ex- and son Roland who were unaware of this hospice consult and they do not want hospice at t
[2019-08-05 16:47] LABS: Glucose Point of Care 154 (65-105)
[2019-08-05] MEDS: TAMSULOSIN HCL 0.4 MG CAPSULE PO (19:22)
[2019-08-05] MEDS: MELATONIN 3 MG TABLET PO (21:06)
[2019-08-05 21:18] LABS: Glucose Point of Care 133 (65-105)
[2019-08-06] VITALS (9 sets, daily range): BP systolic 102–131; BP diastolic 40–65; PULSE 69–85; RESP 4–22; TEMP 36.1–36.6; O2SAT 95–97
[2019-08-06 07:53] LABS: Glucose Point of Care 134 (65-105)
[2019-08-06] MEDS: AMLODIPINE BESYLATE 5 MG TABLET 10 MG PO (08:44)
[2019-08-06] MEDS: SERTRALINE HCL 50 MG TABLET 200 MG PO (08:44)
[2019-08-06] MEDS: FAMOTIDINE 20 MG/2 ML VIAL IV PUSH ×2 (08:45→20:32)
[2019-08-06] MEDS: lisinopriL 10 MG TABLET PO (08:45)
[2019-08-06] MEDS: polyethylene glycoL 3350 17 GM POWD.PACK PO (08:45)
[2019-08-06] MEDS: FOLIC ACID 1 MG TABLET PO (08:45)
[2019-08-06] MEDS: ERTAPENEM 1 GM/NS 50 ML 1 GM/50 ML BAG IVPB (08:48)
[2019-08-06] MEDS: PREGABALIN 50 MG CAPSULE 200 MG PO ×2 (08:48→20:33)
[2019-08-06] MEDS: HEPARIN SODIUM 5,000 UNITS/ML VIAL 5000 UNITS SUB-Q ×2 (08:48→20:32)
[2019-08-06 08:58] LABS: Blood Urea Nitrogen 26 mg/dL (9-20); Calcium 9.1 mg/dL (8.4-10.2); Carbon Dioxide 16 mmol/L (22-30); Chloride 108 mmol/L (98-107); Estimated CRCL calculation 62 ml/min; Estimated Glomerular Filt Rate 47; Glucose 130 mg/dL (75-110); Potassium 4.5 mmol/L (3.4-5.0); Sodium 138 mmol/L (137-145)
[2019-08-06 09:09] LABS: Basophils Absolute Auto 0.1 K/mm3 (0.0-0.1); Eosinophils Absolute Auto 0.3 K/mm3 (0-0.3); Eosinophils Percent Auto 3.8 % (0-4.4); Hematocrit 30.6 % (42.0-52.0); Hemoglobin 9.2 g/dL (14.0-18.0); Immature Granulocyte Percent A 7.4 % (0-0.5); Lymphocytes Absolute Auto 1.55 K/mm3 (0.9-3.2); Lymphocytes Percent Auto 19.2 % (18.3-44.2); Mean Corpuscular HGB Conc 30.1 g/dl (32-36); Mean Corpuscular Volume 96.5 fl (80-100); Mean Platelet Volume 10.8 fl (7.4-10.4); Monocytes Absolute Auto 0.7 K/mm3 (0.1-0.6); Monocytes Percent Auto 8.8 % (2.6-8.5); Neutrophils Absolute Auto 4.8 K/mm3 (1.3-6.7); Neutrophils Percent Auto 59.8 % (45.5-73.1); Platelet Count Result 290 k/mm3 (150-375); Red Blood Count 3.17 M/mm3 (4.6-6.20); Red Cell Distribution Width 13.9 % (11.5-14.5); White Blood Count 8.1 K/mm3 (4.5-10.0)
[2019-08-06 10:39] LABS: Albumin Level 3.9 g/dL (3.5-5.1); Alkaline Phosphatase 52 U/L (38-126); Aspartate Amino Transferase 11 U/L (17-59); Bilirubin,Total 0.3 mg/dL (0.2-1.3); Magnesium 1.8 mg/dL (1.6-2.3)
[2019-08-06 10:44] LABS: Alanine Aminotransferase < 6 U/L (4-50)
[2019-08-06 11:49] LABS: Glucose Point of Care 164 (65-105)
--- NOTE | 2019-08-06 14:40 | PM.IMPN ---
Progress Note: A&P Assessment and Plan (1) Urinary tract infection: Qualifiers: Hematuria presence: without hematuria Urinary tract infection type: site unspecified Qualified Code(s): N39.0 - Urinary tract infection, site not specified Code(s): N39.0 - Urinary tract infection, site not specified Status: Acute Assessment and Plan: -----UA growing E coli ESBL. Continue imipenem. White blood cell count within normal limits. Will make sure his Cazares catheter has been changed since being admitted. 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 history of chronic respiratory disease he was found to be confused he was brought to the emergency department further evaluation initially he was admitted to medical floor with pneumonia his symptoms got worse he was hypoxic and was transferred to ICU and intubated on 07/31, COVID-19 is negative, on 08/01 patient with extubated was feeling little better able to provide some review of symptom, denied any shortness of breath fever or chills, similarly he feeling better, he was on 1 L NC, he did have bedside swallow study and MDS is recommended, his urine is growing E coli ESBL, most likely 2/2 chronic indeweling cathter, vancomycin cefepim and Flagyl were 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 and patient started on Ivanz, on 08/02 patient x-ray on 08/03 showed improvement did not show any significant pneumonia, he is clinically stable, was transferred him out of ICU to [facility], today patient complains of cough denies any fever or chills shortness of her repeat chest x-ray shows some infiltrate versus atelectasis patient has no fever (2) Pneumonia: Qualifiers: Laterality: bilateral Lung location: lower lobe of lung Pneumonia type: due to unspecified organism Qualified Code(s): J18.9 - Pneumonia, unspecified organism Code(s): J18.9 - Pneumonia, unspecified organism Status: Acute Assessment and Plan: -----chest x-ray shows possible pneumonia. COVID-19 negative. Continue imipenem. The patient's cough has improved but he still having sputum production occasionally. Will try to get a sputum sample. Will wean O2 patient with cough today repeat chest x-ray is does not show significant infiltrate possibly atelectasis (3) Respiratory failure: Code(s): J96.90 - Respiratory failure, unspecified, unspecified whether with hypoxia or hypercapnia Status: Acute Assessment and Plan: -----resolved. Likely due to pneumonia. COVID ruled out. Will likely be able to be weaned off oxygen today. (4) Chronic atrial fibrillation: Code(s): I48.20 - Chronic atrial fibrillation, unspecified Status: Acute Assessment and Plan: -----not on anticoagulation at this time. Telemetry shows normal sinus rhythm (5) Chronic kidney disease, stage 3 (moderate): Code(s): N18.3 - Chronic kidney disease, stage 3 (moderate) Status: Acute Assessment and Plan: -----stable. Monitor (6) Dementia in other diseases classified elsewhere with behavioral disturbance: Code(s): F02.81 - Dementia in other diseases classified elsewhere with behavioral disturbance Status: Acute Assessment and Plan: -----I spoke to the family about the patient's dementia. He wax and wanes frequently. The senior living mentioned hospice and the family is considering it for his dementia but would like full treatment here at this hospital. (7) Early onset Alzheimer's dementia without behavioral disturbance: Code(s): G30.0 - Alzheimer's disease with early onset; F02.80 - Dementia in other diseases classified elsewhere without behavioral disturbance Status: Acute Assessment and Plan: -----see above. (8) Type 2 diabetes mellitus with other diabetic neurological complication: Code(s): E11.49 - Type 2 diabetes mellitus with other diabetic neurological complication Status: Acute Asse
[2019-08-06 16:31] LABS: Glucose Point of Care 164 (65-105)
[2019-08-06] MEDS: TRAMADOL HCL 50 MG TABLET PO (16:52)
[2019-08-06] MEDS: TAMSULOSIN HCL 0.4 MG CAPSULE PO (16:53)
[2019-08-06] MEDS: SODIUM CHLORIDE 0.9% IV 1,000 ML 75 ML IV CONT (17:54)
[2019-08-06] MEDS: MELATONIN 3 MG TABLET PO (20:33)
[2019-08-06 20:40] LABS: Glucose Point of Care 156 (65-105)
[2019-08-07] VITALS (11 sets, daily range): BP systolic 103–142; BP diastolic 45–83; PULSE 54–83; RESP 16–20; TEMP 36.2–36.6; O2SAT 90–100
[2019-08-07 05:19] LABS: Basophils Absolute Auto 0.1 K/mm3 (0.0-0.1); Basophils Percent Auto 0.7 % (0.2-1.2); Eosinophils Absolute Auto 0.3 K/mm3 (0-0.3); Eosinophils Percent Auto 3.2 % (0-4.4); Hematocrit 27.6 % (42.0-52.0); Hemoglobin 8.1 g/dL (14.0-18.0); Immature Granulocyte Absolute 0.74 K/mm3 (0.00-0.031); Immature Granulocyte Percent A 9.2 % (0-0.5); Lymphocytes Absolute Auto 1.75 K/mm3 (0.9-3.2); Lymphocytes Percent Auto 21.8 % (18.3-44.2); Mean Corpuscular HGB Conc 29.3 g/dl (32-36); Mean Corpuscular Hemoglobin 28.4 pg (26-34); Mean Corpuscular Volume 96.8 fl (80-100); Mean Platelet Volume 10.7 fl (7.4-10.4); Monocytes Absolute Auto 0.7 K/mm3 (0.1-0.6); Monocytes Percent Auto 8.3 % (2.6-8.5); Neutrophils Absolute Auto 4.6 K/mm3 (1.3-6.7); Neutrophils Percent Auto 56.8 % (45.5-73.1); Nucleated Red Blood Cells Perc 0.2 % (0.0-0.2); Platelet Count Result 267 k/mm3 (150-375); Red Blood Count 2.85 M/mm3 (4.6-6.20); Red Cell Distribution Width 14.1 % (11.5-14.5)
[2019-08-07] MEDS: SODIUM CHLORIDE 0.9% IV 1,000 ML 75 ML IV CONT ×2 (05:59→20:04)
[2019-08-07 06:09] LABS: Alanine Aminotransferase 6 U/L (4-50); Albumin Level 3.5 g/dL (3.5-5.1); Alkaline Phosphatase 64 U/L (38-126); Aspartate Amino Transferase 15 U/L (17-59); Bilirubin,Total 0.2 mg/dL (0.2-1.3); Blood Urea Nitrogen 34 mg/dL (9-20); Calcium 8.4 mg/dL (8.4-10.2); Carbon Dioxide 31 mmol/L (22-30); Chloride 102 mmol/L (98-107); Estimated CRCL calculation 30 ml/min; Estimated Glomerular Filt Rate 27; Glucose 137 mg/dL (75-110); Magnesium 1.9 mg/dL (1.6-2.3); Sodium 138 mmol/L (137-145)
[2019-08-07 07:37] LABS: Glucose Point of Care 142 (65-105)
[2019-08-07] MEDS: ERTAPENEM 1 GM/NS 50 ML 1 GM/50 ML BAG IVPB (10:12)
[2019-08-07] MEDS: PREGABALIN 50 MG CAPSULE 200 MG PO ×2 (10:13→20:10)
[2019-08-07] MEDS: HEPARIN SODIUM 5,000 UNITS/ML VIAL 5000 UNITS SUB-Q ×2 (10:14→20:12)
[2019-08-07] MEDS: lisinopriL 10 MG TABLET PO (10:14)
[2019-08-07] MEDS: SERTRALINE HCL 50 MG TABLET 200 MG PO (10:14)
[2019-08-07] MEDS: AMLODIPINE BESYLATE 5 MG TABLET 10 MG PO (10:14)
[2019-08-07] MEDS: FAMOTIDINE 20 MG/2 ML VIAL IV PUSH ×2 (10:15→20:10)
[2019-08-07] MEDS: FOLIC ACID 1 MG TABLET PO (10:15)
[2019-08-07] MEDS: FUROSEMIDE INJ 40 MG/4 ML VIAL 20 MG IV PUSH (11:01)
[2019-08-07 11:31] LABS: Glucose Point of Care 194 (65-105)
--- NOTE | 2019-08-07 12:47 | PM.IMPN ---
Progress Note: A&P Assessment and Plan (1) Urinary tract infection: Qualifiers: Hematuria presence: without hematuria Urinary tract infection type: site unspecified Qualified Code(s): N39.0 - Urinary tract infection, site not specified Code(s): N39.0 - Urinary tract infection, site not specified Status: Acute Assessment and Plan: -----UA growing E coli ESBL. Continue imipenem. White blood cell count within normal limits. Will make sure his Cazares catheter has been changed since being admitted. Pt is a 69-year-old male here for UTI and pneumonia. Patient was seen today and states that he has body aches but overall doing okay. He is not having any shortness of breath. He still does have cough that produces sputum occasionally. He denies fevers, chills, abdominal pain, nausea, vomiting, constipation or diarrhea. He says he is not usually on oxygen at home. I was called by care coordination and was told that hospice came to the hospital to see him. It is unclear what hospice was called as they said they were called by the correction. I called and talked to the ex- and son Roland who were unaware of this hospice consult and they do not want hospice at this time as the patient is getting better. I have instructed them to call the correction to figure out why hospice was sent to the hospital. 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 history of chronic respiratory disease he was found to be confused he was brought to the emergency department further evaluation initially he was admitted to medical floor with pneumonia his symptoms got worse he was hypoxic and was transferred to ICU and intubated on 07/31, COVID-19 is negative, on 08/01 patient with extubated was feeling little better able to provide some review of symptom, denied any shortness of breath fever or chills, similarly he feeling better, he was on 1 L NC, he did have bedside swallow study and MDS is recommended, his urine is growing E coli ESBL, most likely 2/2 chronic indeweling cathter, vancomycin cefepim and Flagyl were 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 patient has no fever, will continue to monitor and reassess tomorrow (2) Pneumonia: Qualifiers: Laterality: bilateral Lung location: lower lobe of lung Pneumonia type: due to unspecified organism Qualified Code(s): J18.9 - Pneumonia, unspecified organism Code(s): J18.9 - Pneumonia, unspecified organism Status: Acute Assessment and Plan: -----chest x-ray shows possible pneumonia. COVID-19 negative. Continue imipenem. The patient's cough has improved but he still having sputum production occasionally. Will try to get a sputum sample. Will wean O2 patient with cough today repeat chest x-ray is does not show significant infiltrate possibly atelectasis (3) Respiratory failure: Code(s): J96.90 - Respiratory failure, unspecified, unspecified whether with hypoxia or hypercapnia Status: Acute Assessment and Plan: -----resolved. Likely due to pneumonia. COVID ruled out. Will likely be able to be weaned off oxygen today. (4) Chronic atrial fibrillation: Code(s): I48.20 - Chronic atrial fibrillation, unspecified Status: Acute Assessment and Plan: -----not on anticoagulation at this time. Telemetry shows normal sinus rhythm (5) Chronic kidney disease, stage 3 (moderate): Code(s): N18.3 - Chronic kidney disease, stage 3 (moderate) Status: Acute Assessment and Plan:
[2019-08-07 16:34] LABS: Glucose Point of Care 139 (65-105)
[2019-08-07] MEDS: TAMSULOSIN HCL 0.4 MG CAPSULE PO (17:01)
[2019-08-07] MEDS: GUAIFENESIN 200 MG/10 ML UDC 600 MG PO (17:03)
[2019-08-07] MEDS: MELATONIN 3 MG TABLET PO (20:10)
[2019-08-07] MEDS: BENZONATATE 100 MG CAPSULE PO (22:36)
[2019-08-07 22:39] LABS: Glucose Point of Care 152 (65-105)
[2019-08-08 05:09] LABS: Basophils Absolute Auto 0.1 K/mm3 (0.0-0.1); Basophils Percent Auto 0.5 % (0.2-1.2); Eosinophils Absolute Auto 0.2 K/mm3 (0-0.3); Eosinophils Percent Auto 2.5 % (0-4.4); Hematocrit 26.5 % (42.0-52.0); Hemoglobin 7.9 g/dL (14.0-18.0); Immature Granulocyte Absolute 0.63 K/mm3 (0.00-0.031); Immature Granulocyte Percent A 6.7 % (0-0.5); Immature Platelet Fraction Pct 3.8 % (0.9-11.2); Lymphocytes Absolute Auto 1.41 K/mm3 (0.9-3.2); Mean Corpuscular HGB Conc 29.8 g/dl (32-36); Mean Corpuscular Hemoglobin 29.3 pg (26-34); Mean Corpuscular Volume 98.1 fl (80-100); Mean Platelet Volume 11.3 fl (7.4-10.4); Monocytes Absolute Auto 0.6 K/mm3 (0.1-0.6); Monocytes Percent Auto 6.1 % (2.6-8.5); Neutrophils Absolute Auto 6.5 K/mm3 (1.3-6.7); Neutrophils Percent Auto 69.2 % (45.5-73.1); Nucleated Red Blood Cells Perc 0.2 % (0.0-0.2); Platelet Count Result 268 k/mm3 (150-375); Red Cell Distribution Width 14.3 % (11.5-14.5); White Blood Count 9.4 K/mm3 (4.5-10.0)
[2019-08-08 06:00] VITALS: BP 113/50; PULSE 68; RESP 16; TEMP 35.6; O2SAT 93
--- NOTE | 2019-08-08 06:11 | PC.NURSE ---
Pt in need of anti-fungal cream to groin. Dr Brewster gave me a telephone order for Aloe vista miconazole cream. The pt has ketoconazole listed as an allergy and not able to tell me his reaction. I was unable to order the medicine. I will pass on this information to the day shift team. I did provide little care and placed pillow cases under abdomen and groin area to help wick moisture and keep area from irritating surrounding tissue.
[2019-08-08 08:00] VITALS: PULSE 68; RESP 16; O2SAT 93
[2019-08-08] MEDS: ERTAPENEM 1 GM/NS 50 ML 1 GM/50 ML BAG IVPB (08:49)
[2019-08-08] MEDS: BENZONATATE 100 MG CAPSULE PO ×3 (08:50→21:03)
[2019-08-08] MEDS: polyethylene glycoL 3350 17 GM POWD.PACK PO (08:50)
[2019-08-08] MEDS: PREGABALIN 50 MG CAPSULE 200 MG PO ×2 (08:50→21:02)
[2019-08-08] MEDS: FAMOTIDINE 20 MG/2 ML VIAL IV PUSH ×2 (08:50→21:02)
[2019-08-08] MEDS: SERTRALINE HCL 50 MG TABLET 200 MG PO (08:51)
[2019-08-08] MEDS: AMLODIPINE BESYLATE 5 MG TABLET 10 MG PO (08:51)
[2019-08-08] MEDS: lisinopriL 10 MG TABLET PO (08:52)
[2019-08-08] MEDS: FOLIC ACID 1 MG TABLET PO (08:52)
[2019-08-08 09:02] LABS: Glucose Point of Care 136 (65-105)
[2019-08-08] MEDS: HEPARIN SODIUM 5,000 UNITS/ML VIAL 5000 UNITS SUB-Q ×2 (09:06→21:02)
[2019-08-08 09:23] LABS: Alanine Aminotransferase 6 U/L (4-50); Albumin Level 3.4 g/dL (3.5-5.1); Alkaline Phosphatase 66 U/L (38-126); Aspartate Amino Transferase 14 U/L (17-59); Bilirubin,Total < 0.1 mg/dL (0.2-1.3); Blood Urea Nitrogen 37 mg/dL (9-20); Calcium 8.7 mg/dL (8.4-10.2); Carbon Dioxide 27 mmol/L (22-30); Chloride 104 mmol/L (98-107); Estimated CRCL calculation 33 ml/min; Estimated Glomerular Filt Rate 22; Glucose 162 mg/dL (75-110); Potassium 4.6 mmol/L (3.4-5.0); Sodium 138 mmol/L (137-145)
[2019-08-08 10:48] LABS: Glucose Point of Care 145 (65-105)
[2019-08-08] MEDS: SODIUM CHLORIDE 0.9% IV 1,000 ML 75 ML IV CONT (12:11)
[2019-08-08 13:30] VITALS: BP 124/69; PULSE 71; RESP 20; TEMP 35.8; O2SAT 100
--- NOTE | 2019-08-08 13:56 | PM.IMPN ---
Progress Note: A&P Assessment and Plan (1) Urinary tract infection: Qualifiers: Hematuria presence: without hematuria Urinary tract infection type: site unspecified Qualified Code(s): N39.0 - Urinary tract infection, site not specified Code(s): N39.0 - Urinary tract infection, site not specified Status: Acute Assessment and Plan: -----UA growing E coli ESBL. Continue imipenem. White blood cell count within normal limits. Will make sure his Cazares catheter has been changed since being admitted. Pt is a 69-year-old male here for UTI and pneumonia. Patient was seen today and states that he has body aches but overall doing okay. He is not having any shortness of breath. He still does have cough that produces sputum occasionally. He denies fevers, chills, abdominal pain, nausea, vomiting, constipation or diarrhea. He says he is not usually on oxygen at home. I was called by care coordination and was told that hospice came to the hospital to see him. It is unclear what hospice was called as they said they were called by the custodial. I called and talked to the ex- and son Roland who were unaware of this hospice consult and they do not want hospice at this time as the patient is getting better. I have instructed them to call the custodial to figure out why hospice was sent to the hospital. 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 history of chronic respiratory disease he was found to be confused he was brought to the emergency department further evaluation initially he was admitted to medical floor with pneumonia his symptoms got worse he was hypoxic and was transferred to ICU and intubated on 07/31, COVID-19 is negative, on 08/01 patient with extubated was feeling little better able to provide some review of symptom, denied any shortness of breath fever or chills, similarly he feeling better, he was on 1 L NC, he did have bedside swallow study and MDS is recommended, his urine is growing E coli ESBL, most likely 2/2 chronic indeweling cathter, vancomycin cefepim and Flagyl were 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 patient has no fever, on 08/07 again today patient urine out put is poor, c/o cough and his chest x-ray shows pneumonia, patient is on Ivanz, will add vancomycin, will gently hydrate the patient to help urinate and will continue to monitor and reassess tomorrow (2) Pneumonia: Qualifiers: Laterality: bilateral Lung location: lower lobe of lung Pneumonia type: due to unspecified organism Qualified Code(s): J18.9 - Pneumonia, unspecified organism Code(s): J18.9 - Pneumonia, unspecified organism Status: Acute Assessment and Plan: -----chest x-ray shows possible pneumonia. COVID-19 negative. Continue imipenem. The patient's cough has improved but he still having sputum production occasionally. Will try to get a sputum sample. Will wean O2 patient with cough today repeat chest x-ray is does show significant infiltrate will vancomycin (3) Respiratory failure: Code(s): J96.90 - Respiratory failure, unspecified, unspecified whether with hypoxia or hypercapnia Status: Acute Assessment and Plan: -----resolved. Likely due to pneumonia. COVID ruled out. Will likely be able to be weaned off oxygen today. (4) Chronic atrial fibrillation: Code(s): I48.20 - Chronic atrial fibrillation, unspecified Status: Acute Assessment and Plan: -----not on anticoagulation at this time. Telemetry shows normal sinus
[2019-08-08] MEDS: GUAIFENESIN 200 MG/10 ML UDC 600 MG PO (16:22)
[2019-08-08] MEDS: TAMSULOSIN HCL 0.4 MG CAPSULE PO (16:23)
[2019-08-08 16:36] LABS: Glucose Point of Care 135 (65-105)
[2019-08-08 19:53] LABS: Glucose Point of Care 158 (65-105)
[2019-08-08] MEDS: MELATONIN 3 MG TABLET PO (21:02)
[2019-08-08 21:03] VITALS: PULSE 69; O2SAT 94
[2019-08-08 22:00] VITALS: BP 133/67; PULSE 111; RESP 20; TEMP 36.2; O2SAT 98
[2019-08-09] MEDS: SODIUM CHLORIDE 0.9% IV 1,000 ML 75 ML IV CONT ×2 (03:22→11:39)
[2019-08-09 04:56] LABS: Basophils Percent Auto 0.3 % (0.2-1.2); Eosinophils Absolute Auto 0.2 K/mm3 (0-0.3); Hematocrit 25.8 % (42.0-52.0); Hemoglobin 7.6 g/dL (14.0-18.0); Immature Granulocyte Absolute 0.55 K/mm3 (0.00-0.031); Immature Granulocyte Percent A 5.9 % (0-0.5); Lymphocytes Absolute Auto 1.15 K/mm3 (0.9-3.2); Lymphocytes Percent Auto 12.4 % (18.3-44.2); Mean Corpuscular HGB Conc 29.5 g/dl (32-36); Mean Corpuscular Hemoglobin 28.8 pg (26-34); Mean Corpuscular Volume 97.7 fl (80-100); Mean Platelet Volume 10.6 fl (7.4-10.4); Monocytes Absolute Auto 0.6 K/mm3 (0.1-0.6); Monocytes Percent Auto 5.9 % (2.6-8.5); Neutrophils Absolute Auto 6.8 K/mm3 (1.3-6.7); Neutrophils Percent Auto 73.5 % (45.5-73.1); Platelet Count Result 267 k/mm3 (150-375); Red Blood Count 2.64 M/mm3 (4.6-6.20); Red Cell Distribution Width 14.3 % (11.5-14.5); White Blood Count 9.3 K/mm3 (4.5-10.0)
[2019-08-09 05:11] LABS: Alanine Aminotransferase 6 U/L (4-50); Albumin Level 3.3 g/dL (3.5-5.1); Alkaline Phosphatase 64 U/L (38-126); Aspartate Amino Transferase 15 U/L (17-59); Bilirubin,Total 0.2 mg/dL (0.2-1.3); Blood Urea Nitrogen 38 mg/dL (9-20); Calcium 8.6 mg/dL (8.4-10.2); Carbon Dioxide 27 mmol/L (22-30); Chloride 104 mmol/L (98-107); Estimated CRCL calculation 38 ml/min; Estimated Glomerular Filt Rate 26; Glucose 148 mg/dL (75-110); Potassium 4.5 mmol/L (3.4-5.0); Sodium 136 mmol/L (137-145)
[2019-08-09 06:00] VITALS: BP 139/52; PULSE 79; RESP 20; TEMP 36.7; O2SAT 99
[2019-08-09 07:52] LABS: Glucose Point of Care 127 (65-105)
[2019-08-09 08:00] VITALS: PULSE 79; RESP 20; O2SAT 99
[2019-08-09] MEDS: FAMOTIDINE 20 MG/2 ML VIAL IV PUSH ×2 (08:11→21:55)
[2019-08-09] MEDS: ERTAPENEM 1 GM/NS 50 ML 1 GM/50 ML BAG IVPB (08:11)
[2019-08-09] MEDS: BENZONATATE 100 MG CAPSULE PO (08:12)
[2019-08-09] MEDS: polyethylene glycoL 3350 17 GM POWD.PACK PO (08:12)
[2019-08-09] MEDS: PREGABALIN 50 MG CAPSULE 200 MG PO ×2 (08:12→21:55)
[2019-08-09] MEDS: AMLODIPINE BESYLATE 5 MG TABLET 10 MG PO (08:12)
[2019-08-09] MEDS: SERTRALINE HCL 50 MG TABLET 200 MG PO (08:13)
[2019-08-09] MEDS: FOLIC ACID 1 MG TABLET PO (08:13)
[2019-08-09] MEDS: lisinopriL 10 MG TABLET PO (08:13)
[2019-08-09] MEDS: HEPARIN SODIUM 5,000 UNITS/ML VIAL 5000 UNITS SUB-Q ×2 (08:16→21:55)
[2019-08-09 09:29] LABS: Glucose Point of Care 139 (65-105)
--- NOTE | 2019-08-09 11:04 | PM.IMPN ---
Progress Note: A&P Assessment and Plan (1) Urinary tract infection: Qualifiers: Hematuria presence: without hematuria Urinary tract infection type: site unspecified Qualified Code(s): N39.0 - Urinary tract infection, site not specified Code(s): N39.0 - Urinary tract infection, site not specified Status: Acute Assessment and Plan: -----UA growing E coli ESBL. Continue monitoring WC. Continue invanz Pt is a 69-year-old male here for UTI and pneumonia. 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 history of chronic respiratory disease he was found to be confused he was brought to the emergency department further evaluation initially he was admitted to medical floor with pneumonia his symptoms got worse he was hypoxic and was transferred to ICU and intubated on 07/31, COVID-19 is negative, on 08/01 patient with extubated was feeling little better able to provide some review of symptom, denied any shortness of breath fever or chills, similarly he feeling better, he was on 1 L NC, he did have bedside swallow study and MDS is recommended, his urine is growing E coli ESBL, most likely 2/2 chronic indeweling cathter, vancomycin cefepim and 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 Recent chest x-ray shows pneumonia, patient is on Ivanz, will add vancomycin. (2) Pneumonia: Qualifiers: Laterality: bilateral Lung location: lower lobe of lung Pneumonia type: due to unspecified organism Qualified Code(s): J18.9 - Pneumonia, unspecified organism Code(s): J18.9 - Pneumonia, unspecified organism Status: Acute Assessment and Plan: Chest x-ray shows possible pneumonia. COVID-19 negative. rpt CXR. (3) Respiratory failure: Code(s): J96.90 - Respiratory failure, unspecified, unspecified whether with hypoxia or hypercapnia Status: Acute Assessment and Plan: Resolved. Likely due to pneumonia. COVID ruled out. wean off oxygen (4) Chronic atrial fibrillation: Code(s): I48.20 - Chronic atrial fibrillation, unspecified Status: Acute Assessment and Plan: Not on anticoagulation at this time. (5) Chronic kidney disease, stage 3 (moderate): Code(s): N18.3 - Chronic kidney disease, stage 3 (moderate) Status: Acute Assessment and Plan: Stable. (6) Dementia in other diseases classified elsewhere with behavioral disturbance: Code(s): F02.81 - Dementia in other diseases classified elsewhere with behavioral disturbance Status: Acute Assessment and Plan: Pt has dementia. poor historian ? hospice consideration (7) Early onset Alzheimer's dementia without behavioral disturbance: Code(s): G30.0 - Alzheimer's disease with early onset; F02.80 - Dementia in other diseases classified elsewhere without behavioral disturbance Status: Acute Assessment and Plan: See above. (8) Type 2 diabetes mellitus with other diabetic neurological complication: Code(s): E11.49 - Type 2 diabetes mellitus with other diabetic neurological complication Status: Acute Assessment and Plan: Continue sliding scale insulin (9) Septic shock: Code(s): A41.9 - Sepsis, unspecified organism; R65.21 - Severe sepsis with septic shock Status: Resolved Assessment and Plan: Resolved. Subjective Date/time seen: 08/09/19 11:04 Interval history: Pt is a 69-year-old male here for UTI and pneumonia. Patient still has wet cough and some abdominal discomfort and constipation. 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 Recent chest x-ray shows pneumonia, patient is on
[2019-08-09 11:21] LABS: Glucose Point of Care 127 (65-105)
[2019-08-09 14:00] VITALS: BP 138/44; PULSE 79; RESP 22; TEMP 36.2; O2SAT 94
[2019-08-09] MEDS: TAMSULOSIN HCL 0.4 MG CAPSULE PO (16:33)
[2019-08-09 16:39] LABS: Glucose Point of Care 144 (65-105)
[2019-08-09] MEDS: MELATONIN 3 MG TABLET PO (21:55)
[2019-08-09 22:00] VITALS: BP 144/44; PULSE 89; RESP 21; TEMP 36.7; O2SAT 100
[2019-08-09 22:27] LABS: Glucose Point of Care 160 (65-105)
[2019-08-10] VITALS (12 sets, daily range): BP systolic 124–126; BP diastolic 42–58; PULSE 71–89; RESP 18–24; TEMP 36.5–36.6; O2SAT 88–100
[2019-08-10] MEDS: SODIUM CHLORIDE 0.9% IV 1,000 ML 75 ML IV CONT (00:43)
[2019-08-10 04:57] LABS: Hematocrit 25.1 % (42.0-52.0); Hemoglobin 7.4 g/dL (14.0-18.0); Mean Corpuscular HGB Conc 29.5 g/dl (32-36); Mean Corpuscular Hemoglobin 28.8 pg (26-34); Mean Corpuscular Volume 97.7 fl (80-100); Mean Platelet Volume 10.4 fl (7.4-10.4); Platelet Count Result 275 k/mm3 (150-375); Red Blood Count 2.57 M/mm3 (4.6-6.20); Red Cell Distribution Width 14.3 % (11.5-14.5); White Blood Count 7.9 K/mm3 (4.5-10.0)
[2019-08-10 05:27] LABS: Blood Urea Nitrogen 36 mg/dL (9-20); Calcium 8.5 mg/dL (8.4-10.2); Carbon Dioxide 27 mmol/L (22-30); Chloride 107 mmol/L (98-107); Estimated CRCL calculation 46 ml/min; Estimated Glomerular Filt Rate 32; Glucose 164 mg/dL (75-110); Potassium 4.4 mmol/L (3.4-5.0); Sodium 138 mmol/L (137-145)
[2019-08-10 07:29] LABS: Glucose Point of Care 143 (65-105)
[2019-08-10] MEDS: lisinopriL 10 MG TABLET PO (09:05)
[2019-08-10] MEDS: AMLODIPINE BESYLATE 5 MG TABLET 10 MG PO (09:05)
[2019-08-10] MEDS: FOLIC ACID 1 MG TABLET PO (09:05)
[2019-08-10] MEDS: FAMOTIDINE 20 MG/2 ML VIAL IV PUSH ×2 (09:05→21:42)
[2019-08-10] MEDS: SERTRALINE HCL 50 MG TABLET 200 MG PO (09:06)
[2019-08-10] MEDS: polyethylene glycoL 3350 17 GM POWD.PACK PO (09:06)
[2019-08-10] MEDS: ERTAPENEM 1 GM/NS 50 ML 1 GM/50 ML BAG IVPB (09:08)
[2019-08-10] MEDS: HEPARIN SODIUM 5,000 UNITS/ML VIAL 5000 UNITS SUB-Q ×2 (09:10→21:42)
[2019-08-10] MEDS: PREGABALIN 50 MG CAPSULE 200 MG PO ×2 (09:11→21:42)
--- NOTE | 2019-08-10 10:30 | PC.NURSE ---
Patient with redness and maceration to groin and buttocks. Spoke with Dr. Mejia and orders received for wound nurse consult. Patient seen by Nighat Lopez RN. Per Nighat, macerated area is fungal in nature. Patient has an allergy listed to Ketoconazole. Spoke with pharmacist who states our anti-fungal creams are Miconazole which is in the same class as Ketoconazole. Call placed to [facility], where patient resides, to inquire about nature of allergy. Left voice message for patient's nurse and requested return call.
--- NOTE | 2019-08-10 11:05 | PCNFU ---
Nutrition Follow-Up Complete: Inadequate Oral Intake as related to Mechanical Ventilation as evidenced by NPO Goal: Meet estimated nutritional needs Limited progress towards goal. Will continue current goal. Pt current nutrition is Pureed, Level 4. Nutrition recommendation: Agree Last recorded weight is 143.2 kg. Bowel Motility:+BM reported 5/6 Labs Reviewed:Glu 164,BUN 36,Cr 2.10 Meds Noted:Miralax,Folic Acid,Novolog,Vancomycin,Pepcid Additional Notes: Spoke with nursing today for nutrition follow up due to COVID 19 precautions. Patient is a feeder with all meals. No straws. Oral intake have been fair 5-100% meals. Discussed with nursing the addition of a diet supplement to patients trays to be beneficial. Glucerna shakes added BID for an additional 220 kcals and 10 gms protein. PO intake encouraged. Monitoring: Will monitor every 5 days.
[2019-08-10 11:27] LABS: Glucose Point of Care 159 (65-105)
--- NOTE | 2019-08-10 12:46 | WPDGICN ---
Assessment and Plan Assessment and plan (1) Diabetic gastroparesis: Code(s): E11.43 - Type 2 diabetes mellitus with diabetic autonomic (poly)neuropathy; K31.84 - Gastroparesis Status: Acute Assessment and Plan: he has longstanding DM with complications, most likely gastroparesis (found trace of barium in CXR) but no report of vomiting and he is tolerating diet. will start low dose of reglan with meals but monitor for potential side effects he will be high risk to undergo EGD now (recent pneumonia with respiratory failure, he is obese, etc)- prefer conservative therapy and continue to monitor clinical course if nausea then ok to use antiemetics prn but RN does not report need for. (2) Constipation: Qualifiers: Constipation type: unspecified constipation type Qualified Code(s): K59.00 - Constipation, unspecified Code(s): K59.00 - Constipation, unspecified Status: Acute Assessment and Plan: stool in rectum, ok to use enema and stool softeners several risk factors (DM, obesity, dysmotility, recent prolonged hospitalization, etc) (3) Early onset Alzheimer's dementia without behavioral disturbance: Code(s): G30.0 - Alzheimer's disease with early onset; F02.80 - Dementia in other diseases classified elsewhere without behavioral disturbance Status: Acute (4) Type 2 DM with CKD and hypertension: Code(s): E11.22 - Type 2 diabetes mellitus with diabetic chronic kidney disease; I12.9 - Hypertensive chronic kidney disease with stage 1 through stage 4 chronic kidney disease, or unspecified chronic kidney disease Status: Acute (5) Respiratory failure: Qualifiers: Chronicity: acute Respiratory failure complication: hypoxia and hypercapnia Qualified Code(s): J96.01 - Acute respiratory failure with hypoxia; J96.02 - Acute respiratory failure with hypercapnia Code(s): J96.90 - Respiratory failure, unspecified, unspecified whether with hypoxia or hypercapnia Status: Acute Assessment and Plan: resolved and treated (6) Pneumonia: Qualifiers: Laterality: bilateral Lung location: lower lobe of lung Pneumonia type: due to unspecified organism Qualified Code(s): J18.9 - Pneumonia, unspecified organism Code(s): J18.9 - Pneumonia, unspecified organism Status: Acute Assessment and Plan: received medical treatment (7) Urinary tract infection: Qualifiers: Hematuria presence: without hematuria Urinary tract infection type: site unspecified Qualified Code(s): N39.0 - Urinary tract infection, site not specified Code(s): N39.0 - Urinary tract infection, site not specified Status: Acute GI Consult Note Consult date/time: 08/10/19 12:46 HPI: Baljeet Birmingham is a 69 year old male with history of dementia, diabetes, chronic indwelling little catheter who is a care home resident. He had previous hospitalization earlier last month with UTI. He was brought to the ER after he was found lethargic with respiratory failure, admitted to medical floor with pneumonia became more hypoxic, transferred to ICU and intubated on 07/31, COVID-19 negative, on 08/01 patient with extubated and eventually transferred to floor. He is comfortable now, he had a barium swallow study few days ago and repeat CXR showed pulmonary vascular congestion and persistent oral contrast material in the stomach suggesting gastroparesis and that is the reason of the consult. RN told me that he has not had any vomiting, he has been tolerating diet (RN aid mentioned that had about 40% of his lunch). Also he has constipation and abd XR showed fecal impaction of the distal colon and rectum. History is obtained from records, history limited because dementia. Review of Systems Review of Systems: ROS unobtainable: Yes unobtainable due to mental status PMFSH Past Medical History Medical History Atrial fibr
--- NOTE | 2019-08-10 13:59 | PM.IMPN ---
Progress Note: A&P Assessment and Plan (1) Urinary tract infection: Qualifiers: Hematuria presence: without hematuria Urinary tract infection type: site unspecified Qualified Code(s): N39.0 - Urinary tract infection, site not specified Code(s): N39.0 - Urinary tract infection, site not specified Status: Acute Assessment and Plan: -----UA growing E coli ESBL. Continue monitoring WCC. Continue invanz Pt is a 69-year-old male here for UTI and pneumonia. Recent chest x-ray shows pneumonia, patient is on Ivanz, will add vancomycin. (2) Pneumonia: Qualifiers: Laterality: bilateral Lung location: lower lobe of lung Pneumonia type: due to unspecified organism Qualified Code(s): J18.9 - Pneumonia, unspecified organism Code(s): J18.9 - Pneumonia, unspecified organism Status: Acute Assessment and Plan: Chest x-ray shows possible pneumonia. COVID-19 negative. rpt CXR. (3) Respiratory failure: Qualifiers: Chronicity: acute Respiratory failure complication: hypoxia and hypercapnia Qualified Code(s): J96.01 - Acute respiratory failure with hypoxia; J96.02 - Acute respiratory failure with hypercapnia Code(s): J96.90 - Respiratory failure, unspecified, unspecified whether with hypoxia or hypercapnia Status: Acute Assessment and Plan: Resolved. Likely due to pneumonia. COVID ruled out. wean off oxygen (4) Chronic atrial fibrillation: Code(s): I48.20 - Chronic atrial fibrillation, unspecified Status: Acute Assessment and Plan: Not on anticoagulation at this time. (5) Chronic kidney disease, stage 3 (moderate): Code(s): N18.3 - Chronic kidney disease, stage 3 (moderate) Status: Acute Assessment and Plan: Stable. (6) Dementia in other diseases classified elsewhere with behavioral disturbance: Code(s): F02.81 - Dementia in other diseases classified elsewhere with behavioral disturbance Status: Acute Assessment and Plan: Pt has dementia. poor historian ? hospice consideration later (7) Early onset Alzheimer's dementia without behavioral disturbance: Code(s): G30.0 - Alzheimer's disease with early onset; F02.80 - Dementia in other diseases classified elsewhere without behavioral disturbance Status: Acute Assessment and Plan: See above. (8) Type 2 diabetes mellitus with other diabetic neurological complication: Code(s): E11.49 - Type 2 diabetes mellitus with other diabetic neurological complication Status: Acute Assessment and Plan: Continue sliding scale insulin (9) Septic shock: Code(s): A41.9 - Sepsis, unspecified organism; R65.21 - Severe sepsis with septic shock Status: Resolved Assessment and Plan: Resolved. (10) Constipation: Qualifiers: Constipation type: unspecified constipation type Qualified Code(s): K59.00 - Constipation, unspecified Code(s): K59.00 - Constipation, unspecified Status: Acute Assessment and Plan: KUB shows Fecal impactation and constipation. Seen by GI today for gastroparesis and fecel impactation. Continue laxatives. Subjective Date/time seen: 08/10/19 13:59 Interval history: Pt is a 69-year-old male here for UTI and pneumonia. Patient still has wet cough and some abdominal discomfort and constipation. His urine is growing E coli ESBL, most likely 2/2 chronic indeweling cathter, vancomycin cefepim and Flagyl were stopped guest services attendant and patient started on Ivanz, on 08/02, was transferred him out of ICU to [facility]. Recent chest x-ray shows pneumonia, patient is on Ivanz, will add vancomycin. Review of Systems Review of Systems: All systems reviewed & are unremarkable except as noted in HPI and below Exam Narrative: Exam Narrative: Morbidly obese, wet cough, lethargic, poor historian Const: Gener
--- NOTE | 2019-08-10 14:09 | PC.NURSE ---
Notified Dr. Mejia of O2 sat of 88% on 2 liters per nasal cannula and O2 being increased. Also notified her of fungal infection and allergy to Ketoconazole. NH called back and are unaware of what the allergic reaction entailed.
[2019-08-10] MEDS: TAMSULOSIN HCL 0.4 MG CAPSULE PO (16:56)
[2019-08-10] MEDS: METOCLOPRAMIDE HCL 2.5 MG TABLET PO ×2 (16:56→21:42)
[2019-08-10 16:58] LABS: Glucose Point of Care 148 (65-105)
[2019-08-10] MEDS: MELATONIN 3 MG TABLET PO (21:42)
[2019-08-10 21:51] LABS: Alveolar/Arterial O2 Gradient 169.1 mmHg; Base Excess ABG -0.3 mEq/l (+/-2.0); Carboxyhemoglobin 1.2 % THb (0-2.0); Fractional Inspired Oxygen 40 %; HCO3 ABG 25.9 mEq/l (22.0-26.0); Methemoglobin ABG 0.3 %THb (0-1.5); Oxygen Content ABG 13.1 %vol (16.0-22.0); Oxygen Saturation ABG 88.8 % (95.0-100.0); Oxyhemoglobin 88.4 % THb (90.0-100.0); PCO2 ABG 49.5 mmHg (35.0-45.0); PO2 ABG 59.2 mmHg (80.0-100.0); PO2 FiO2 Ratio Arterial Blood 1.48 %; Reduced Hemoglobin 10.1 %THb (0-5.0); Total Hemoglobin 10.5 g/dL (12.0-18.0); pH ABG 7.337 (7.350-7.450)
[2019-08-10 21:52] LABS: Device NASAL CANNULA; Site Drawn RIGHT BRACHIAL
[2019-08-10] MEDS: DORNASE ALFA INH SOLN 1 MG/ML 2.5 ML AMP 2.5 MG INHALATION (22:57)
[2019-08-11] VITALS (9 sets, daily range): BP systolic 110–127; BP diastolic 38–44; PULSE 72–83; RESP 20–26; TEMP 36.4–36.6; O2SAT 92–100
[2019-08-11 03:12] LABS: Glucose Point of Care 185 (65-105)
[2019-08-11 05:36] LABS: Hematocrit 27.7 % (42.0-52.0); Hemoglobin 8.1 g/dL (14.0-18.0); Mean Corpuscular HGB Conc 29.2 g/dl (32-36); Mean Corpuscular Hemoglobin 28.9 pg (26-34); Mean Corpuscular Volume 98.9 fl (80-100); Mean Platelet Volume 10.6 fl (7.4-10.4); Platelet Count Result 311 k/mm3 (150-375); Red Cell Distribution Width 14.4 % (11.5-14.5); White Blood Count 9.5 K/mm3 (4.5-10.0)
[2019-08-11 05:42] LABS: Blood Urea Nitrogen 36 mg/dL (9-20); Calcium 8.8 mg/dL (8.4-10.2); Carbon Dioxide 29 mmol/L (22-30); Chloride 107 mmol/L (98-107); Estimated CRCL calculation 43 ml/min; Estimated Glomerular Filt Rate 30; Glucose 170 mg/dL (75-110); Potassium 4.6 mmol/L (3.4-5.0); Sodium 140 mmol/L (137-145)
[2019-08-11] MEDS: METOCLOPRAMIDE HCL 2.5 MG TABLET PO ×4 (06:32→21:05)
[2019-08-11] MEDS: DORNASE ALFA INH SOLN 1 MG/ML 2.5 ML AMP 2.5 MG INHALATION ×2 (08:20→19:10)
[2019-08-11] MEDS: ACETAMINOPHEN 325 MG TABLET PO (08:52)
[2019-08-11] MEDS: AMLODIPINE BESYLATE 5 MG TABLET 10 MG PO (08:54)
[2019-08-11] MEDS: SERTRALINE HCL 50 MG TABLET 200 MG PO (08:55)
[2019-08-11] MEDS: lisinopriL 10 MG TABLET PO (08:55)
[2019-08-11] MEDS: FOLIC ACID 1 MG TABLET PO (08:55)
[2019-08-11] MEDS: polyethylene glycoL 3350 17 GM POWD.PACK PO (08:57)
[2019-08-11] MEDS: PREGABALIN 50 MG CAPSULE 200 MG PO ×2 (09:00→21:05)
[2019-08-11] MEDS: HEPARIN SODIUM 5,000 UNITS/ML VIAL 5000 UNITS SUB-Q ×2 (09:04→21:04)
[2019-08-11] MEDS: FAMOTIDINE 20 MG/2 ML VIAL IV PUSH ×2 (09:04→21:04)
[2019-08-11] MEDS: TOLNAFTATE 1% POWDER 45 GM BTL 1 APPLIC TOPICAL ×2 (09:04→21:05)
[2019-08-11] MEDS: ERTAPENEM 1 GM/NS 50 ML 1 GM/50 ML BAG IVPB (09:13)
[2019-08-11 09:23] LABS: Glucose Point of Care 162 (65-105)
--- NOTE | 2019-08-11 11:41 | PM.IMPN ---
Progress Note: A&P Assessment and Plan (1) Pneumonia: Qualifiers: Laterality: bilateral Lung location: lower lobe of lung Pneumonia type: due to unspecified organism Qualified Code(s): J18.9 - Pneumonia, unspecified organism Code(s): J18.9 - Pneumonia, unspecified organism Status: Acute Assessment and Plan: Chest x-ray overnight with opacification of right lung probably combination of right lung postobstructive collapse from mucous plugging and pleural effusion but unable to quantify amount of superimposed right-sided pneumonia or edema. Sputum culture is now positive for MRSA. Isolation started. Continue IV vancomycin. Currently on 5 L of oxygen. Does have Cornet therapy. CPT added last night. Will schedule nebulizer treatments for now. Continue Pulmozyme. Patient did have MBS on 08/03/2029 with recommendation for pureed diet with regular liquids. WBC remains normal. (2) Respiratory failure: Qualifiers: Chronicity: acute Respiratory failure complication: hypoxia and hypercapnia Qualified Code(s): J96.01 - Acute respiratory failure with hypoxia; J96.02 - Acute respiratory failure with hypercapnia Code(s): J96.90 - Respiratory failure, unspecified, unspecified whether with hypoxia or hypercapnia Status: Acute Assessment and Plan: Result of pneumonia. Currently on 5 L noted above. Will continue treatment as noted above. Wean oxygen as tolerated. (3) Urinary tract infection: Qualifiers: Hematuria presence: without hematuria Urinary tract infection type: site unspecified Qualified Code(s): N39.0 - Urinary tract infection, site not specified Code(s): N39.0 - Urinary tract infection, site not specified Status: Acute Assessment and Plan: Urine culture growing E coli ESBL. Has been on IV ertapenem x9 days. Will discontinue ertapenem at this time. Continue vancomycin for pneumonia as noted above. (4) Chronic kidney disease, stage 3 (moderate): Code(s): N18.3 - Chronic kidney disease, stage 3 (moderate) Status: Acute Assessment and Plan: Creatinine presently stable at 2.20. Will continue to monitor. (5) Type 2 diabetes mellitus with other diabetic neurological complication: Code(s): E11.49 - Type 2 diabetes mellitus with other diabetic neurological complication Status: Acute Assessment and Plan: Also with gastroparesis for which GI was consulted and chronic kidney disease. Continue Reglan. Will also continue Lyrica for neuropathy. Glucose reviewed on 08/11/2019 and stable. Continue sliding scale insulin as needed. (6) Constipation: Qualifiers: Constipation type: unspecified constipation type Qualified Code(s): K59.00 - Constipation, unspecified Code(s): K59.00 - Constipation, unspecified Status: Acute Assessment and Plan: KUB on 08/11/2019 with fecal impactation of distal colon and rectum. Appreciate input from GI. Continue Dulcolax as needed. Continue to monitor. (7) Chronic atrial fibrillation: Code(s): I48.20 - Chronic atrial fibrillation, unspecified Status: Acute Assessment and Plan: No anticoagulation. Presently stable. Will continue to monitor clinically. (8) Dementia in other diseases classified elsewhere with behavioral disturbance: Code(s): F02.81 - Dementia in other diseases classified elsewhere with behavioral disturbance Status: Acute Assessment and Plan: Appears to be stable at this time. Continue aripiprazole. Will monitor. (9) Septic shock: Code(s): A41.9 - Sepsis, unspecified organism; R65.21 - Severe sepsis with septic shock Status: Resolved Assessment and Plan: Now resolved. Continue other treatments as noted above. (10) DVT prophylaxis: Code(s): Z29.9 - Encounter for prophylactic measures, unspecified Status: Acute Assessment and Plan:
[2019-08-11 13:02] LABS: Vancomycin Trough 18.5 ug/mL (10.0-20.0)
[2019-08-11] MEDS: ALBUTEROL SULFATE NEB 2.5 MG/0.5 ML INH INHALATION ×2 (14:06→19:00)
[2019-08-11] MEDS: IPRATROPIUM BR 0.02% INH SOLN 0.5 MG/2.5 ML VIAL INHALATION ×2 (14:06→19:00)
--- NOTE | 2019-08-11 15:20 | WPDGIPROGNO ---
Progress Note: A&P Assessment and Plan (1) Constipation: Qualifiers: Constipation type: unspecified constipation type Qualified Code(s): K59.00 - Constipation, unspecified Code(s): K59.00 - Constipation, unspecified Status: Acute Assessment and Plan: continue with laxatives and enema prn (2) Diabetic gastroparesis: Code(s): E11.43 - Type 2 diabetes mellitus with diabetic autonomic (poly)neuropathy; K31.84 - Gastroparesis Status: Acute Assessment and Plan: medical treatment, low dose of reglan- no report of vomiting and he has been tolerating diet no need to proceed with endoscopic evaluation now, still recovering from pneumonia and respiratory failure (3) Acute respiratory failure: Qualifiers: Respiratory failure complication: unspecified whether with hypoxia or hypercapnia Qualified Code(s): J96.00 - Acute respiratory failure, unspecified whether with hypoxia or hypercapnia Code(s): J96.00 - Acute respiratory failure, unspecified whether with hypoxia or hypercapnia Status: Acute (4) Pneumonia: Qualifiers: Laterality: bilateral Lung location: lower lobe of lung Pneumonia type: due to unspecified organism Qualified Code(s): J18.9 - Pneumonia, unspecified organism Code(s): J18.9 - Pneumonia, unspecified organism Status: Acute Assessment and Plan: noted worsening cxr, medical management (5) Urinary tract infection: Qualifiers: Hematuria presence: without hematuria Urinary tract infection type: site unspecified Qualified Code(s): N39.0 - Urinary tract infection, site not specified Code(s): N39.0 - Urinary tract infection, site not specified Status: Acute Subjective Date/time seen: 08/11/19 15:20 Interval history: noted worsening opacification on CXR in right side (possible mucus plug), still eating but poor appetite, no report of vomiting Review of Systems Review of Systems: ROS unobtainable: Yes unobtainable due to mental status Exam Narrative: Exam Narrative: Awake and alert. Const: Other: Mild distress. HENMT: Mouth: Yes moist mucous membranes Neck: Neck: supple Lymphatic: lymphadenopathy not noted Resp: Auscultation: no wheezes and diminished lung sounds (Right much worse than left) Cardio: Rate: regular rate GI: Inspection: non-distended GI Palp: Yes Soft to palpation and No Tenderness to palpation present (GI) Auscultation: normal bowel sounds Urinary Catheter: Urinary Catheter: patent and draining and urine clear Skin: General skin exam: no rashes or lesions noted Neuro: Speech: normal speech Other: Generalized weakness Extrem: General: no edema Psych: Affect: normal affect and No Anxious affect present Objective Data Vital Signs Vital Signs: Vital Signs - 24 hr 08/10/19 20:14 08/10/19 22:00 08/10/19 23:00 Temperature 97.7 F Pulse Rate 79 73 Respiratory Rate 22 H 24 H 20 Blood Pressure 124/42 L Pulse Oximetry 90 95 08/10/19 23:15 08/10/19 23:38 08/11/19 04:44 Temperature 97.9 F Pulse Rate 74 74 83 Respiratory Rate 20 20 24 H Blood Pressure 113/40 L Pulse Oximetry 92 100 08/11/19 08:21 08/11/19 08:30 Temperature Pulse Rate 72 83 Respiratory Rate 20 20 Blood Pressure Pulse Oximetry 92 Intake/Output Intake/Output: Intake & Output 08/08/19 08/09/19 08/10/19 08/11/19 23:59 23:59 23:59 23:59 Intake Total 2480 2700 3020 840 Output Total 730 1550 1200 600 Balance 1750 1150 1820 240 Meds/Results Medications: Active Medications Generic Name Dose Route Start Last Admin Trade Name Freq PRN Reason Stop Dose Admin Acetaminophen 325 mg 08/05/19 10:01 08/11/19 08:52 Tylenol Tablet PO 325 mg Q12H PRN Administration MILD PAIN 1-3 Albuterol 2.5 mg 08/11/19 14:00 08/11/19 14:06 Albuterol Sulf Neb 2.5mg/0.5ml INHALATION 2.5 mg Q6HRT EDWIN Administration Amlodipine Besylate 10 mg
[2019-08-11] MEDS: TAMSULOSIN HCL 0.4 MG CAPSULE PO (16:46)
[2019-08-11 17:31] LABS: Glucose Point of Care 177 (65-105)
[2019-08-11 17:31] LABS: Glucose Point of Care 170 (65-105)
[2019-08-11 20:03] LABS: Glucose Point of Care 214 (65-105)
[2019-08-11] MEDS: MELATONIN 3 MG TABLET PO (21:05)
[2019-08-12] VITALS (12 sets, daily range): BP systolic 108–141; BP diastolic 40–59; PULSE 68–82; RESP 18–22; TEMP 36.3–37.3; O2SAT 93–100
[2019-08-12] MEDS: IPRATROPIUM BR 0.02% INH SOLN 0.5 MG/2.5 ML VIAL INHALATION ×4 (01:35→19:30)
[2019-08-12] MEDS: ALBUTEROL SULFATE NEB 2.5 MG/0.5 ML INH INHALATION ×4 (01:35→19:30)
[2019-08-12 05:14] LABS: Hematocrit 25.7 % (42.0-52.0); Hemoglobin 7.5 g/dL (14.0-18.0); Mean Corpuscular HGB Conc 29.2 g/dl (32-36); Mean Corpuscular Hemoglobin 29.1 pg (26-34); Mean Corpuscular Volume 99.6 fl (80-100); Mean Platelet Volume 10.9 fl (7.4-10.4); Platelet Count Result 302 k/mm3 (150-375); Red Blood Count 2.58 M/mm3 (4.6-6.20); Red Cell Distribution Width 14.7 % (11.5-14.5)
[2019-08-12 05:27] LABS: Blood Urea Nitrogen 43 mg/dL (9-20); Calcium 8.5 mg/dL (8.4-10.2); Carbon Dioxide 29 mmol/L (22-30); Chloride 106 mmol/L (98-107); Estimated CRCL calculation 48 ml/min; Estimated Glomerular Filt Rate 33; Glucose 219 mg/dL (75-110); Potassium 5.2 mmol/L (3.4-5.0); Sodium 138 mmol/L (137-145)
[2019-08-12] MEDS: METOCLOPRAMIDE HCL 2.5 MG TABLET PO ×4 (06:03→21:02)
[2019-08-12] MEDS: DORNASE ALFA INH SOLN 1 MG/ML 2.5 ML AMP 2.5 MG INHALATION ×2 (07:51→19:30)
[2019-08-12] MEDS: PREGABALIN 50 MG CAPSULE 200 MG PO ×2 (08:27→21:02)
[2019-08-12] MEDS: lisinopriL 10 MG TABLET PO (08:28)
[2019-08-12] MEDS: FAMOTIDINE 20 MG/2 ML VIAL IV PUSH ×2 (08:28→21:01)
[2019-08-12] MEDS: polyethylene glycoL 3350 17 GM POWD.PACK PO (08:28)
[2019-08-12] MEDS: SERTRALINE HCL 50 MG TABLET 200 MG PO (08:28)
[2019-08-12] MEDS: FOLIC ACID 1 MG TABLET PO (08:28)
[2019-08-12] MEDS: AMLODIPINE BESYLATE 5 MG TABLET 10 MG PO (08:28)
[2019-08-12] MEDS: TOLNAFTATE 1% POWDER 45 GM BTL 1 APPLIC TOPICAL ×2 (08:33→21:04)
[2019-08-12] MEDS: HEPARIN SODIUM 5,000 UNITS/ML VIAL 5000 UNITS SUB-Q ×2 (08:33→21:01)
[2019-08-12 09:03] LABS: Glucose Point of Care 164 (65-105)
--- NOTE | 2019-08-12 09:52 | PM.IMPN ---
Progress Note: A&P Assessment and Plan (1) Pneumonia: Qualifiers: Laterality: bilateral Lung location: lower lobe of lung Pneumonia type: due to unspecified organism Qualified Code(s): J18.9 - Pneumonia, unspecified organism Code(s): J18.9 - Pneumonia, unspecified organism Status: Acute Assessment and Plan: Chest x-ray late on 08/10/2019 with opacification of right lung probably combination of right lung postobstructive collapse from mucous plugging and pleural effusion but unable to quantify amount of superimposed right-sided pneumonia or edema. Sputum culture is positive for MRSA. Continue IV vancomycin and isolation. Has weaned down to 4 L of oxygen. Continue Cornet therapy and nebulizer treatments along with Pulmozyme. Patient did have MBS on 08/03/2029 with recommendation for pureed diet with regular liquids. WBC remains normal. Will repeat chest xray today. Plan to return to [facility] when ready for discharge. (2) Respiratory failure: Qualifiers: Chronicity: acute Respiratory failure complication: hypoxia and hypercapnia Qualified Code(s): J96.01 - Acute respiratory failure with hypoxia; J96.02 - Acute respiratory failure with hypercapnia Code(s): J96.90 - Respiratory failure, unspecified, unspecified whether with hypoxia or hypercapnia Status: Acute Assessment and Plan: Result of pneumonia. Currently on 4 L noted above. Will continue treatment as noted above. Wean oxygen as tolerated. (3) Acute renal failure superimposed on stage 3 chronic kidney disease: Qualifiers: Acute renal failure type: unspecified Qualified Code(s): N17.9 - Acute kidney failure, unspecified; N18.3 - Chronic kidney disease, stage 3 (moderate) Code(s): N17.9 - Acute kidney failure, unspecified; N18.3 - Chronic kidney disease, stage 3 (moderate) Status: Acute Assessment and Plan: Creatinine decreased to 2.00 today. Per record here, baseline creatinine around 1.20. Will continue to monitor. (4) Urinary tract infection: Qualifiers: Hematuria presence: without hematuria Urinary tract infection type: site unspecified Qualified Code(s): N39.0 - Urinary tract infection, site not specified Code(s): N39.0 - Urinary tract infection, site not specified Status: Acute Assessment and Plan: Urine culture growing E coli ESBL. Conmpleted 9 days of IV ertapenem. Urine presently clear. (5) Type 2 diabetes mellitus with other diabetic neurological complication: Code(s): E11.49 - Type 2 diabetes mellitus with other diabetic neurological complication Status: Acute Assessment and Plan: Glucose reviewed on 08/12/2019. Occasional reading over 200 but otherwise stable. Continue sliding scale insulin as needed. Also with gastroparesis and chronic kidney disease. Continue Reglan. Will also continue Lyrica for neuropathy. (6) Constipation: Qualifiers: Constipation type: unspecified constipation type Qualified Code(s): K59.00 - Constipation, unspecified Code(s): K59.00 - Constipation, unspecified Status: Acute Assessment and Plan: KUB on 08/11/2019 with fecal impactation of distal colon and rectum. Appreciate input from GI. Continue Dulcolax as needed. Continue to monitor. (7) Chronic atrial fibrillation: Code(s): I48.20 - Chronic atrial fibrillation, unspecified Status: Acute Assessment and Plan: No anticoagulation. Remains stable. Will continue to monitor clinically. (8) Dementia in other diseases classified elsewhere with behavioral disturbance: Code(s): F02.81 - Dementia in other diseases classified elsewhere with behavioral disturbance Status: Acute Assessment and Plan: Remains stable at this time. Continue aripiprazole. Will monitor. (9) Septic shock: Code(s): A41.9 - Sepsis, unspecified organism; R65.21 - Severe sepsis
[2019-08-12 14:12] LABS: Glucose Point of Care 198 (65-105)
[2019-08-12] MEDS: TAMSULOSIN HCL 0.4 MG CAPSULE PO (16:42)
[2019-08-12 16:48] LABS: Glucose Point of Care 184 (65-105)
[2019-08-12] MEDS: MELATONIN 3 MG TABLET PO (21:01)
[2019-08-13] VITALS (12 sets, daily range): BP systolic 125–140; BP diastolic 47–55; PULSE 75–83; RESP 16–20; TEMP 36.6–36.7; O2SAT 90–100
[2019-08-13] MEDS: IPRATROPIUM BR 0.02% INH SOLN 0.5 MG/2.5 ML VIAL INHALATION ×4 (01:09→21:12)
[2019-08-13] MEDS: ALBUTEROL SULFATE NEB 2.5 MG/0.5 ML INH INHALATION ×4 (01:10→21:13)
[2019-08-13 05:35] LABS: Blood Urea Nitrogen 51 mg/dL (9-20); Calcium 8.1 mg/dL (8.4-10.2); Carbon Dioxide 28 mmol/L (22-30); Chloride 105 mmol/L (98-107); Estimated CRCL calculation 46 ml/min; Estimated Glomerular Filt Rate 32; Glucose 131 mg/dL (75-110); Phosphorus 3.7 mg/dL (2.5-4.5); Potassium 5.5 mmol/L (3.4-5.0); Sodium 137 mmol/L (137-145)
[2019-08-13] MEDS: METOCLOPRAMIDE HCL 2.5 MG TABLET PO ×4 (06:13→20:27)
[2019-08-13 06:44] LABS: Glucose Point of Care 115 (65-105)
[2019-08-13] MEDS: DORNASE ALFA INH SOLN 1 MG/ML 2.5 ML AMP 2.5 MG INHALATION ×2 (08:10→21:13)
[2019-08-13] MEDS: AMLODIPINE BESYLATE 5 MG TABLET 10 MG PO (08:30)
[2019-08-13] MEDS: SODIUM POLYSTYRENE SULFONONATE 15 GM/60 ML BTL PO (08:30)
[2019-08-13] MEDS: HEPARIN SODIUM 5,000 UNITS/ML VIAL 5000 UNITS SUB-Q ×2 (08:31→20:27)
[2019-08-13] MEDS: FOLIC ACID 1 MG TABLET PO (08:31)
[2019-08-13] MEDS: SERTRALINE HCL 50 MG TABLET 200 MG PO (08:31)
[2019-08-13] MEDS: polyethylene glycoL 3350 17 GM POWD.PACK PO ×2 (08:31→17:49)
[2019-08-13] MEDS: FAMOTIDINE 20 MG/2 ML VIAL IV PUSH ×2 (08:31→20:26)
[2019-08-13] MEDS: PREGABALIN 50 MG CAPSULE 200 MG PO ×2 (08:31→20:28)
[2019-08-13] MEDS: BISACODYL 5 MG TABLET EC PO (08:31)
[2019-08-13] MEDS: TOLNAFTATE 1% POWDER 45 GM BTL 1 APPLIC TOPICAL ×2 (08:32→20:28)
[2019-08-13 11:25] LABS: Glucose Point of Care 166 (65-105)
--- NOTE | 2019-08-13 12:10 | PM.IMPN ---
Progress Note: A&P Assessment and Plan (1) Pneumonia: Qualifiers: Laterality: bilateral Lung location: lower lobe of lung Pneumonia type: due to unspecified organism Qualified Code(s): J18.9 - Pneumonia, unspecified organism Code(s): J18.9 - Pneumonia, unspecified organism Status: Acute Assessment and Plan: Chest x-ray late on 08/10/2019 with opacification of right lung probably combination of right lung postobstructive collapse from mucous plugging and pleural effusion but unable to quantify amount of superimposed right-sided pneumonia or edema. Repeat chest x-ray on 08/12/2019 personally reviewed with improvement of opacification of the right lung but still with bilateral disease. Sputum culture is positive for MRSA. Continue isolation. Has weaned down to 3 L of oxygen. Will continue IV vancomycin today in order to have a least 7 days treatment beyond positive sputum culture although has been on vancomycin since 08/01/2019. Continue Cornet therapy and nebulizer treatments along with Pulmozyme. Patient did have MBS on 08/03/2029 with recommendation for pureed diet with regular liquids. WBC remains normal. Continue to wean oxygen as tolerated. Possible discharge back to [facility] tomorrow. (2) Respiratory failure: Qualifiers: Chronicity: acute Respiratory failure complication: hypoxia and hypercapnia Qualified Code(s): J96.01 - Acute respiratory failure with hypoxia; J96.02 - Acute respiratory failure with hypercapnia Code(s): J96.90 - Respiratory failure, unspecified, unspecified whether with hypoxia or hypercapnia Status: Acute Assessment and Plan: Result of pneumonia. Down to 3 L noted above. Will continue treatment as noted above. Wean oxygen as tolerated. (3) Acute renal failure superimposed on stage 3 chronic kidney disease: Qualifiers: Acute renal failure type: unspecified Qualified Code(s): N17.9 - Acute kidney failure, unspecified; N18.3 - Chronic kidney disease, stage 3 (moderate) Code(s): N17.9 - Acute kidney failure, unspecified; N18.3 - Chronic kidney disease, stage 3 (moderate) Status: Acute Assessment and Plan: Creatinine with no significant change at 2.10 today. Per record here, baseline creatinine around 1.20. Will continue to monitor. (4) Hyperkalemia: Code(s): E87.5 - Hyperkalemia Status: Acute Assessment and Plan: Potassium increased to 5.5 today. Most likely result of acute renal failure. Lisinopril now on hold. Kayexalate given. Will continue to monitor. (5) Urinary tract infection: Qualifiers: Hematuria presence: without hematuria Urinary tract infection type: site unspecified Qualified Code(s): N39.0 - Urinary tract infection, site not specified Code(s): N39.0 - Urinary tract infection, site not specified Status: Resolved Assessment and Plan: Urine culture growing E coli ESBL. Conmpleted 9 days of IV ertapenem. Urine presently clear. (6) Type 2 diabetes mellitus with other diabetic neurological complication: Code(s): E11.49 - Type 2 diabetes mellitus with other diabetic neurological complication Status: Acute Assessment and Plan: Glucose reviewed on 08/13/2019 and now under better control. Continue sliding scale insulin as needed. Also with gastroparesis and chronic kidney disease. Continue Reglan. Will also continue Lyrica for neuropathy. (7) Constipation: Qualifiers: Constipation type: unspecified constipation type Qualified Code(s): K59.00 - Constipation, unspecified Code(s): K59.00 - Constipation, unspecified Status: Acute Assessment and Plan: KUB on 08/11/2019 with fecal impactation of distal colon and rectum. Appreciate input from GI. Has not had bowel movement yet today. Will increase MiraLax to b.i.d.. Continue Dulcolax as needed. Continue to monitor. (8) Chronic atrial fibrillat
[2019-08-13] MEDS: TRAMADOL HCL 50 MG TABLET PO (14:33)
[2019-08-13] MEDS: EUCERIN CREAM 120 GM JAR 1 APPLIC TOPICAL (14:34)
[2019-08-13 16:33] LABS: Glucose Point of Care 172 (65-105)
--- NOTE | 2019-08-13 17:36 | PC.NURSE ---
Patient yelling out over and over. When asked what's wrong, patient states I hurt all over and I itch . Called Dr. Sanchez and notified her of same. Orders received.
[2019-08-13] MEDS: TAMSULOSIN HCL 0.4 MG CAPSULE PO (17:49)
[2019-08-13] MEDS: KETOROLAC 15 MG/ML VIAL (*BKC) IV PUSH (18:07)
[2019-08-13] MEDS: MELATONIN 3 MG TABLET PO (20:27)
[2019-08-13 20:59] LABS: Glucose Point of Care 230 (65-105)
[2019-08-14] VITALS (12 sets, daily range): BP systolic 122–148; BP diastolic 43–53; PULSE 68–81; RESP 16–20; TEMP 36.2–36.8; O2SAT 92–100
[2019-08-14] MEDS: IPRATROPIUM BR 0.02% INH SOLN 0.5 MG/2.5 ML VIAL INHALATION ×4 (02:06→20:20)
[2019-08-14] MEDS: ALBUTEROL SULFATE NEB 2.5 MG/0.5 ML INH INHALATION ×4 (02:06→20:20)
[2019-08-14] MEDS: METOCLOPRAMIDE HCL 2.5 MG TABLET PO ×2 (06:00→11:32)
[2019-08-14 06:18] LABS: Glucose Point of Care 110 (65-105)
[2019-08-14] MEDS: AMLODIPINE BESYLATE 5 MG TABLET 10 MG PO (07:52)
[2019-08-14] MEDS: FAMOTIDINE 20 MG/2 ML VIAL IV PUSH ×2 (07:52→21:48)
[2019-08-14] MEDS: HEPARIN SODIUM 5,000 UNITS/ML VIAL 5000 UNITS SUB-Q ×2 (07:53→21:48)
[2019-08-14] MEDS: EUCERIN CREAM 120 GM JAR 1 APPLIC TOPICAL (07:53)
[2019-08-14] MEDS: FOLIC ACID 1 MG TABLET PO (07:53)
[2019-08-14] MEDS: PREGABALIN 50 MG CAPSULE 200 MG PO ×2 (07:54→21:46)
[2019-08-14] MEDS: polyethylene glycoL 3350 17 GM POWD.PACK PO ×2 (07:54→16:50)
[2019-08-14] MEDS: SERTRALINE HCL 50 MG TABLET 200 MG PO (07:54)
[2019-08-14] MEDS: BISACODYL 5 MG TABLET EC PO (07:54)
[2019-08-14] MEDS: DORNASE ALFA INH SOLN 1 MG/ML 2.5 ML AMP 2.5 MG INHALATION ×2 (08:47→20:20)
[2019-08-14 10:02] LABS: Blood Urea Nitrogen 55 mg/dL (9-20); Calcium 8.4 mg/dL (8.4-10.2); Carbon Dioxide 26 mmol/L (22-30); Chloride 106 mmol/L (98-107); Estimated CRCL calculation 50 ml/min; Estimated Glomerular Filt Rate 33; Glucose 171 mg/dL (75-110); Potassium 6.3 mmol/L (3.4-5.0); Sodium 136 mmol/L (137-145)
[2019-08-14] MEDS: SODIUM POLYSTYRENE SULFONONATE 15 GM/60 ML BTL RECTAL (10:39)
[2019-08-14 11:37] LABS: Glucose Point of Care 150 (65-105)
--- NOTE | 2019-08-14 12:43 | PM.IMPN ---
Progress Note: A&P Assessment and Plan (1) Pneumonia: Qualifiers: Laterality: bilateral Lung location: lower lobe of lung Pneumonia type: due to unspecified organism Qualified Code(s): J18.9 - Pneumonia, unspecified organism Code(s): J18.9 - Pneumonia, unspecified organism Status: Acute Assessment and Plan: Clinically has now improved. Chest x-ray late on 08/10/2019 with opacification of right lung probably combination of right lung postobstructive collapse from mucous plugging and pleural effusion but unable to quantify amount of superimposed right-sided pneumonia or edema. Repeat chest x-ray on 08/12/2019 personally reviewed with improvement of opacification of the right lung but still with bilateral disease. Sputum culture is positive for MRSA. Continue isolation. On 3 L of oxygen. Has been on IV vancomycin since 08/01/2019 with patient now on IV vancomycin for 7 days beyond positive sputum culture. Will discontinue IV vancomycin. WBC remains normal. Continue Cornet therapy and nebulizer treatments along with Pulmozyme. Patient did have MBS on 08/03/2029 with recommendation for pureed diet with regular liquids. Continue to wean oxygen as tolerated. Plan to return to [facility] once otherwise stable. (2) Respiratory failure: Qualifiers: Chronicity: acute Respiratory failure complication: hypoxia and hypercapnia Qualified Code(s): J96.01 - Acute respiratory failure with hypoxia; J96.02 - Acute respiratory failure with hypercapnia Code(s): J96.90 - Respiratory failure, unspecified, unspecified whether with hypoxia or hypercapnia Status: Acute Assessment and Plan: Result of pneumonia. Now remaining on 3 L noted above. Will continue treatment as noted above. Wean oxygen as tolerated. (3) Acute renal failure superimposed on stage 3 chronic kidney disease: Qualifiers: Acute renal failure type: unspecified Qualified Code(s): N17.9 - Acute kidney failure, unspecified; N18.3 - Chronic kidney disease, stage 3 (moderate) Code(s): N17.9 - Acute kidney failure, unspecified; N18.3 - Chronic kidney disease, stage 3 (moderate) Status: Acute Assessment and Plan: Creatinine with no significant change but slightly better at 2.00 today. Per record here, baseline creatinine around 1.20. Suspect may be at a new baseline. Will continue to monitor. (4) Hyperkalemia: Code(s): E87.5 - Hyperkalemia Status: Acute Assessment and Plan: Most likely result acute on chronic kidney disease. Potassium now increased to 6.3 this morning. Kayexalate enema given today as no significant results from oral Kayexalate yesterday. Lisinopril remains on hold. As of this afternoon, patient has not had any significant bowel movement and therefore have not yet read checked potassium. Will recheck potassium once he has good bowel movement. Will place on telemetry for better monitoring at this point. (5) Constipation: Qualifiers: Constipation type: unspecified constipation type Qualified Code(s): K59.00 - Constipation, unspecified Code(s): K59.00 - Constipation, unspecified Status: Acute Assessment and Plan: KUB on 08/11/2019 with fecal impactation of distal colon and rectum with stool ball up to 9.3 cm. Appreciate input from GI. Has not had good bowel movement despite increasing MiraLax to twice daily as well as oral Dulcolax given this morning. Oral Kayexalate given yesterday. Kayexalate enema ordered this morning but nurse reports not able to hold enemas for long. Will try Dulcolax suppository this afternoon. Received update from nurse this afternoon. Patient still with no significant bowel movement evening after Dulcolax suppository. Will try lactulose enema. Anticipate potassium will improve once he has bowel movement. Will also increase metoclopramide. (6) Urinary tract infection: Qualifiers:
[2019-08-14] MEDS: BISACODYL 10 MG SUPPOSITORY RECTAL (13:13)
[2019-08-14 16:49] LABS: Glucose Point of Care 160 (65-105)
[2019-08-14] MEDS: LACTULOSE ENEMA 200 GM/1,000 ML ENEMA RECTAL (16:54)
[2019-08-14] MEDS: TAMSULOSIN HCL 0.4 MG CAPSULE PO (17:20)
[2019-08-14] MEDS: METOCLOPRAMIDE HCL 5 MG TABLET PO ×2 (17:57→21:00)
--- NOTE | 2019-08-14 18:19 | PC.NURSE ---
After Lactulose enema, large results of soft brown stool returned.
[2019-08-14] MEDS: ACETAMINOPHEN 325 MG TABLET 650 MG PO (21:45)
[2019-08-14] MEDS: MELATONIN 3 MG TABLET PO (21:46)
[2019-08-15] VITALS (19 sets, daily range): BP systolic 108–145; BP diastolic 49–67; PULSE 72–88; RESP 14–20; TEMP 36.4–36.8; O2SAT 93–98
[2019-08-15] MEDS: ALBUTEROL SULFATE NEB 2.5 MG/0.5 ML INH INHALATION ×4 (02:45→19:20)
[2019-08-15] MEDS: IPRATROPIUM BR 0.02% INH SOLN 0.5 MG/2.5 ML VIAL INHALATION ×4 (02:45→19:20)
[2019-08-15 03:46] LABS: Glucose Point of Care 158 (65-105)
[2019-08-15 05:41] LABS: Blood Urea Nitrogen 55 mg/dL (9-20); Calcium 7.9 mg/dL (8.4-10.2); Carbon Dioxide 25 mmol/L (22-30); Chloride 104 mmol/L (98-107); Estimated CRCL calculation 50 ml/min; Estimated Glomerular Filt Rate 33; Glucose 127 mg/dL (75-110); Potassium 6.2 mmol/L (3.4-5.0); Sodium 135 mmol/L (137-145)
--- NOTE | 2019-08-15 05:57 | ECG_ITS ---
Measurements Intervals [place] Rate: 81 P: 57 NM: 214 QRS: 22 QRSD: 125 T: 30 QT: 390 QTc: 454 Interpretive Statements SINUS RHYTHM WITH FIRST DEGREE AV BLOCK INTRAVENTRICULAR CONDUCTION DELAY BASELINE WANDER- V4 ABNORMAL ECG Electronically Signed On 08-15-2019 7:05:14 CDT by Bridger Bro D.O.
[2019-08-15] MEDS: INSULIN HUMAN REGULAR (*BKC) 100 UNITS/ML 10 UNITS IV PUSH (06:37)
[2019-08-15] MEDS: DEXTROSE 50% 25 GM/50 ML SYRINGE IV PUSH (06:40)
[2019-08-15] MEDS: SODIUM BICARBONATE 8.4% 50 MEQ/50 ML VIAL IV PUSH (06:41)
[2019-08-15] MEDS: METOCLOPRAMIDE HCL 5 MG TABLET PO ×2 (06:42→12:52)
[2019-08-15] MEDS: CALCIUM GLUCONATE 1,000 MG/10 ML VIAL 1000 MG IV PUSH (06:42)
[2019-08-15 07:52] LABS: Glucose Point of Care 137 (65-105)
[2019-08-15 07:52] LABS: Glucose Point of Care 124 (65-105)
[2019-08-15] MEDS: SERTRALINE HCL 50 MG TABLET 200 MG PO (08:40)
[2019-08-15] MEDS: FOLIC ACID 1 MG TABLET PO (08:40)
[2019-08-15] MEDS: polyethylene glycoL 3350 17 GM POWD.PACK PO (08:40)
[2019-08-15] MEDS: FAMOTIDINE 20 MG/2 ML VIAL IV PUSH ×2 (08:40→20:06)
[2019-08-15] MEDS: PREGABALIN 50 MG CAPSULE 200 MG PO ×2 (08:40→20:06)
[2019-08-15] MEDS: EUCERIN CREAM 120 GM JAR 1 APPLIC TOPICAL (08:41)
[2019-08-15] MEDS: HEPARIN SODIUM 5,000 UNITS/ML VIAL 5000 UNITS SUB-Q ×2 (08:41→20:07)
[2019-08-15] MEDS: AMLODIPINE BESYLATE 5 MG TABLET 10 MG PO (08:42)
[2019-08-15] MEDS: TRAMADOL HCL 50 MG TABLET PO (08:49)
[2019-08-15] MEDS: DORNASE ALFA INH SOLN 1 MG/ML 2.5 ML AMP 2.5 MG INHALATION ×2 (09:00→19:20)
[2019-08-15 10:13] LABS: Hematocrit 25.2 % (42.0-52.0); Hemoglobin 7.4 g/dL (14.0-18.0); Mean Corpuscular HGB Conc 29.4 g/dl (32-36); Mean Corpuscular Hemoglobin 29.2 pg (26-34); Mean Corpuscular Volume 99.6 fl (80-100); Mean Platelet Volume 10.8 fl (7.4-10.4); Platelet Count Result 308 k/mm3 (150-375); Red Blood Count 2.53 M/mm3 (4.6-6.20); Red Cell Distribution Width 15.1 % (11.5-14.5); White Blood Count 9.2 K/mm3 (4.5-10.0)
[2019-08-15 10:23] LABS: Potassium 5.5 mmol/L (3.4-5.0)
--- NOTE | 2019-08-15 10:58 | PCNFU ---
Nutrition Follow-Up Complete: Inadequate Oral Intake as related to Mechanical Ventilation as evidenced by NPO Goal: Meet estimated nutritional needs progressing towards goal. Will continue current goal. Pt current nutrition is Pureed, Level 4. Nutrition recommendation: Agree Last recorded weight is 142.6 kg. Bowel Motility:+BM reported 08/14 Labs Reviewed:K 6.2,Na 135,BUN 55,Cr 2.0,Glu 127 Meds Noted:Folic Acid, Miralax,Reglan Additional Notes: Spoke with nursing today on telephone due to COVID 19 precautions. Oral Intake has improved 80-100% of trays. Glucerna shakes continue BID providing an additional 240 kcals and 10 gms protein. 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 PO intake continues to be encouraged. Monitoring: Will monitor every 5 days.
[2019-08-15 11:37] LABS: Glucose Point of Care 170 (65-105)
--- NOTE | 2019-08-15 14:43 | PM.IMPN ---
Progress Note: A&P Assessment and Plan (1) Hyperkalemia: Code(s): E87.5 - Hyperkalemia Status: Acute Assessment and Plan: Most likely result of acute on chronic kidney disease. Potassium increased to 6.3 yesterday morning with Kayexalate enema given as he had not responded to oral Kayexalate from the day before. Still no response with Kayexalate enema Moy Dulcolax suppository. Subsequently patient given lactulose enema last evening and did have large soft bowel movement. Has had liquid stools today. Was given his morning dose of MiraLax but will now hold. Will also hold metoclopramide. Potassium still elevated at 6.2 this morning despite large bowel movement yesterday. As result, he did receive IV calcium gluconate, IV dextrose, IV sodium bicarb and 10 units regular insulin IV. Repeat potassium this afternoon better but still elevated at 5.5. Telemetry reviewed on 08/15/2019 with heart rate controlled. EKG done this morning with no acute changes. Will monitor today and repeat potassium in a.m.. If potassium continues to improve, should be able to discharge back to [facility]. If continuing elevation of potassium with his acute on chronic renal failure, may need Nephrology consult. (2) Acute renal failure superimposed on stage 3 chronic kidney disease: Qualifiers: Acute renal failure type: unspecified Qualified Code(s): N17.9 - Acute kidney failure, unspecified; N18.3 - Chronic kidney disease, stage 3 (moderate) Code(s): N17.9 - Acute kidney failure, unspecified; N18.3 - Chronic kidney disease, stage 3 (moderate) Status: Acute Assessment and Plan: Creatinine unchanged at 2.00 today. Per record here, baseline creatinine around 1.20. Suspect may be at a new baseline. Will continue to monitor. (3) Pneumonia: Qualifiers: Laterality: bilateral Lung location: lower lobe of lung Pneumonia type: due to unspecified organism Qualified Code(s): J18.9 - Pneumonia, unspecified organism Code(s): J18.9 - Pneumonia, unspecified organism Status: Acute Assessment and Plan: Clinically improved. Chest x-ray late on 08/10/2019 with opacification of right lung probably combination of right lung postobstructive collapse from mucous plugging and pleural effusion but unable to quantify amount of superimposed right-sided pneumonia or edema. Repeat chest x-ray on 08/12/2019 with improvement of opacification of the right lung but still with bilateral disease. Sputum culture positive for MRSA. Has now completed IV vancomycin for an additional 7 days after positive sputum culture results but had been on since 08/01/2019. Remains on isolation. Remains on 3 L of oxygen. WBC remains normal. Continue Cornet therapy and nebulizer treatments along with Pulmozyme. Patient did have MBS on 08/03/2029 with recommendation for pureed diet with regular liquids. Continue to try to wean oxygen as tolerated. (4) Respiratory failure: Qualifiers: Chronicity: acute Respiratory failure complication: hypoxia and hypercapnia Qualified Code(s): J96.01 - Acute respiratory failure with hypoxia; J96.02 - Acute respiratory failure with hypercapnia Code(s): J96.90 - Respiratory failure, unspecified, unspecified whether with hypoxia or hypercapnia Status: Acute Assessment and Plan: Result of pneumonia. Now remaining on 3 L as noted above. Will continue treatment as noted above. Wean oxygen as tolerated. (5) Constipation: Qualifiers: Constipation type: unspecified constipation type Qualified Code(s): K59.00 - Constipation, unspecified Code(s): K59.00 - Constipation, unspecified Status: Acute Assessment and Plan: KUB on 08/11/2019 with fecal impactation of distal colon and rectum with stool ball up to 9.3 cm. Appreciate input from GI. Has required multiple medications including MiraLax, Dulcolax, oral and rectal Kayexalate as wel
[2019-08-15 17:01] LABS: Glucose Point of Care 160 (65-105)
[2019-08-15] MEDS: TAMSULOSIN HCL 0.4 MG CAPSULE PO (17:41)
[2019-08-15] MEDS: MELATONIN 3 MG TABLET PO (20:06)
[2019-08-15 20:33] LABS: Glucose Point of Care 175 (65-105)
[2019-08-16] VITALS (16 sets, daily range): BP systolic 118–161; BP diastolic 43–58; PULSE 74–92; RESP 12–24; TEMP 36.1–36.6; O2SAT 90–95
[2019-08-16] MEDS: ALBUTEROL SULFATE NEB 2.5 MG/0.5 ML INH INHALATION ×4 (01:14→20:24)
[2019-08-16] MEDS: IPRATROPIUM BR 0.02% INH SOLN 0.5 MG/2.5 ML VIAL INHALATION ×4 (01:14→20:24)
[2019-08-16 05:04] LABS: Hematocrit 25.3 % (42.0-52.0); Hemoglobin 7.4 g/dL (14.0-18.0); Mean Corpuscular HGB Conc 29.2 g/dl (32-36); Mean Corpuscular Hemoglobin 28.6 pg (26-34); Mean Corpuscular Volume 97.7 fl (80-100); Mean Platelet Volume 10.5 fl (7.4-10.4); Platelet Count Result 293 k/mm3 (150-375); Red Blood Count 2.59 M/mm3 (4.6-6.20); Red Cell Distribution Width 15.1 % (11.5-14.5); White Blood Count 7.8 K/mm3 (4.5-10.0)
[2019-08-16 05:26] LABS: Potassium 5.7 mmol/L (3.4-5.0)
[2019-08-16 05:31] LABS: Albumin Level 3.1 g/dL (3.5-5.1); Blood Urea Nitrogen 55 mg/dL (9-20); Calcium 8.3 mg/dL (8.4-10.2); Carbon Dioxide 29 mmol/L (22-30); Chloride 103 mmol/L (98-107); Estimated CRCL calculation 46 ml/min; Estimated Glomerular Filt Rate 32; Glucose 143 mg/dL (75-110); Phosphorus 4.3 mg/dL (2.5-4.5); Sodium 137 mmol/L (137-145)
[2019-08-16] MEDS: PREGABALIN 50 MG CAPSULE 200 MG PO ×2 (08:45→20:53)
[2019-08-16] MEDS: EUCERIN CREAM 120 GM JAR 1 APPLIC TOPICAL (08:46)
[2019-08-16] MEDS: FAMOTIDINE 20 MG/2 ML VIAL IV PUSH ×2 (08:46→20:54)
[2019-08-16] MEDS: FOLIC ACID 1 MG TABLET PO (08:46)
[2019-08-16] MEDS: SERTRALINE HCL 50 MG TABLET 200 MG PO (08:46)
[2019-08-16] MEDS: HEPARIN SODIUM 5,000 UNITS/ML VIAL 5000 UNITS SUB-Q ×2 (08:46→20:54)
[2019-08-16] MEDS: AMLODIPINE BESYLATE 5 MG TABLET 10 MG PO (08:46)
[2019-08-16] MEDS: DORNASE ALFA INH SOLN 1 MG/ML 2.5 ML AMP 2.5 MG INHALATION ×2 (09:14→20:24)
[2019-08-16 09:24] LABS: Glucose Point of Care 133 (65-105)
--- NOTE | 2019-08-16 11:18 | PM.IMPN ---
Progress Note: A&P Assessment and Plan (1) Hyperkalemia: Code(s): E87.5 - Hyperkalemia Status: Acute Assessment and Plan: Most likely result of acute on chronic kidney disease. Potassium still elevated at 5.7 this morning and Kayexalate given. Etiology unclear. Not felt related to medications. Probably related to his CKD. Change to low potassium diet. Will consult nephrology. Repeat K+ 6.0. No BM with Kayexalate. He did receive IV calcium gluconate, IV sodium bicarb and repeat Kayexalate. Appreciate Nephrology input. (2) Acute renal failure superimposed on stage 3 chronic kidney disease: Qualifiers: Acute renal failure type: unspecified Qualified Code(s): N17.9 - Acute kidney failure, unspecified; N18.3 - Chronic kidney disease, stage 3 (moderate) Code(s): N17.9 - Acute kidney failure, unspecified; N18.3 - Chronic kidney disease, stage 3 (moderate) Status: Acute Assessment and Plan: Creatinine unchanged at 2.1. Per record here, baseline creatinine around 1.20. Suspect may be at a new baseline. Will continue to monitor. Nephrology consult as mentioned above. (3) Pneumonia: Qualifiers: Laterality: bilateral Lung location: lower lobe of lung Pneumonia type: due to unspecified organism Qualified Code(s): J18.9 - Pneumonia, unspecified organism Code(s): J18.9 - Pneumonia, unspecified organism Status: Acute Assessment and Plan: Clinically improved. Chest x-ray late on 08/10/2019 with opacification of right lung probably combination of right lung postobstructive collapse from mucous plugging and pleural effusion but unable to quantify amount of superimposed right-sided pneumonia or edema. Repeat chest x-ray on 08/12/2019 with improvement of opacification of the right lung but still with bilateral disease. Sputum culture positive for MRSA. Has now completed IV vancomycin for an additional 7 days after positive sputum culture results but had been on since 08/01/2019. Remains on isolation. Remains on 3 L of oxygen. WBC remains normal. Continue Cornet therapy and nebulizer treatments along with Pulmozyme. Patient did have MBS on 08/03/2029 with recommendation for pureed diet with regular liquids. Continue to try to wean oxygen as tolerated. (4) Respiratory failure: Qualifiers: Chronicity: acute Respiratory failure complication: hypoxia and hypercapnia Qualified Code(s): J96.01 - Acute respiratory failure with hypoxia; J96.02 - Acute respiratory failure with hypercapnia Code(s): J96.90 - Respiratory failure, unspecified, unspecified whether with hypoxia or hypercapnia Status: Acute Assessment and Plan: Result of pneumonia. Now remaining on 3 L as noted above. Will continue treatment as noted above. Wean oxygen as tolerated. (5) Constipation: Qualifiers: Constipation type: unspecified constipation type Qualified Code(s): K59.00 - Constipation, unspecified Code(s): K59.00 - Constipation, unspecified Status: Acute Assessment and Plan: KUB on 08/11/2019 with fecal impactation of distal colon and rectum with stool ball up to 9.3 cm. Appreciate input from GI. Has required multiple medications including MiraLax, Dulcolax, oral and rectal Kayexalate as well as lactulose enema for any significant result. Repeat KUB 08/15/19 with nonspecific bowel gas pattern but no obvious stool ball. MiraLax and metoclopramide on hold. Will continue to monitor. (6) Type 2 diabetes mellitus with other diabetic neurological complication: Code(s): E11.49 - Type 2 diabetes mellitus with other diabetic neurological complication Status: Acute Assessment and Plan: DM with gastroparesis and chronic kidney disease. Glucose reviewed on 08/16/2019 and reasonable. Metoclopramide now on hold with liquid stools. Continue Lyrica for neuropathy. Continue sliding scale insulin as n
--- NOTE | 2019-08-16 11:44 | PM.CNNEP ---
Assessment and Plan Assessment and plan (1) Hyperkalemia: Code(s): E87.5 - Hyperkalemia Status: Acute (2) Chronic kidney disease, stage 3: Code(s): N18.3 - Chronic kidney disease, stage 3 (moderate) Status: Chronic (3) Pneumonia: Qualifiers: Laterality: bilateral Lung location: lower lobe of lung Pneumonia type: due to unspecified organism Qualified Code(s): J18.9 - Pneumonia, unspecified organism Code(s): J18.9 - Pneumonia, unspecified organism Status: Acute (4) Gastroparesis: Code(s): K31.84 - Gastroparesis Status: Acute (5) Urinary tract infection: Qualifiers: Hematuria presence: without hematuria Urinary tract infection type: site unspecified Qualified Code(s): N39.0 - Urinary tract infection, site not specified Code(s): N39.0 - Urinary tract infection, site not specified Status: Resolved Assessment and Plan: . Additional Plan Baljeet has persistent hyperkalemia as evidence by his labs over the last few days. He also has known chronic kidney disease with a baseline creatinine that runs around 1.5-2.0 mg/dL in the last few years. Based on his outpatient evaluation, this is most likely secondary to his hypertension and diabetes. I suspect his fluctuations during this hospitalization are more related to his acute medical issues. I am not entirely sure why the patient's potassium level has been running on the higher side of normal, however, several possibilities exist. He does have significant anemia and if there is any possibility of GI blood loss, then break down of the red blood cells could got could be partly responsible for the rise in his potassium; I suppose just simple hemolysis itself could be a problems as well. He does have diabetes so he could have a renal tubular acidosis type 4 (hypoaldosteronism) resulting in a rise in potassium. Dietary issues are also a possibility but given his acute illness this seems to be less likely. Another possibility of course is that this is just secondary to his known chronic kidney disease and he has difficulty regulating his potassium level in general. For further evaluation, I would check an LDH, haptoglobin, CPK, TSH, cortisol level, and follow the trend of his repeat potassium levels. Normally, I would also check urine electrolytes and several other urinary studies however given his chronic Cazares catheter, I suspect this will be difficult to fully interpret. If this continues to be an ongoing issue, suggested interventions would be possibly the use of felt hospice or low calcium a to keep his potassium level stable versus introduction of thiazide diuretics like hydrochlorothiazide or chlorthalidone as this would help both his fluid retention issues and at the same time maintain stability in his potassium level. I will continue follow patient with you while remains hospitalized and make further recommendations based on his hospital course. Thank you for allowing me to participate in care this patient. History of Present Illness Reason for Consult Consult date: 08/16/19 Reason for consult: chronic renal failure (stage III) and hyperkalemia Chief Complaint Chief complaint: Pneumonia History of Present Illness Narrative: The patient is a 69-year-old male with a past medical history as outlined below who was initially admitted about 2 weeks ago to [facility] for altered mental status. His hospitalization was complicated by respiratory failure, pneumonia, constipation, and recent urinary tract infection. More recently, however, most of these conditions have been stabilizing. However, recent blood tests in the last few days have demonstrated recurrent hyperkalemia which has failed to improve with conservative medical therapy. Renal consultation was requested due to the finding of persistent hyperkalemia. It should be noted that the patient also has known chronic kidney disea
[2019-08-16 11:48] LABS: Glucose Point of Care 160 (65-105)
[2019-08-16] MEDS: SODIUM POLYSTYRENE SULFONONATE 15 GM/60 ML BTL PO (12:11)
[2019-08-16] MEDS: TAMSULOSIN HCL 0.4 MG CAPSULE PO (17:09)
[2019-08-16 17:32] LABS: Glucose Point of Care 166 (65-105)
[2019-08-16 18:38] LABS: Creatinine Urine 42.1 mg/dL; Total Protein Urine Random 98 mg/dL
[2019-08-16] MEDS: SODIUM POLYSTYRENE SULFONONATE 15 GM/60 ML BTL 30 GM PO (18:39)
[2019-08-16] MEDS: FUROSEMIDE INJ 40 MG/4 ML VIAL 20 MG IV PUSH (18:42)
[2019-08-16] MEDS: CALCIUM GLUC 1,000 MG/NS 50 ML 1,000 MG/50 ML BAG 100 MG IVPB (18:43)
[2019-08-16 18:52] LABS: Sodium Urine Random 76 meq/L
[2019-08-16] MEDS: SODIUM BICARBONATE 8.4% 50 MEQ/50 ML VIAL IV PUSH (19:16)
[2019-08-16 20:52] LABS: Blood Urea Nitrogen 55 mg/dL (9-20); Calcium 8.5 mg/dL (8.4-10.2); Carbon Dioxide 32 mmol/L (22-30); Chloride 102 mmol/L (98-107); Estimated CRCL calculation 46 ml/min; Estimated Glomerular Filt Rate 32; Glucose 208 mg/dL (75-110); Potassium 5.9 mmol/L (3.4-5.0); Sodium 138 mmol/L (137-145)
[2019-08-16] MEDS: TRAMADOL HCL 50 MG TABLET PO (20:53)
[2019-08-16] MEDS: NYSTATIN OINTMENT 15 GM TUBE 1 APPLIC TOPICAL (20:54)
[2019-08-16] MEDS: MELATONIN 3 MG TABLET PO (20:54)
[2019-08-16 21:47] LABS: Glucose Point of Care 193 (65-105)
[2019-08-17] VITALS (25 sets, daily range): BP systolic 111–134; BP diastolic 32–53; PULSE 68–83; RESP 18–22; TEMP 36.2–36.6; O2SAT 91–100
[2019-08-17 02:10] LABS: Basophils Percent Auto 0.3 % (0.2-1.2); Eosinophils Absolute Auto 0.3 K/mm3 (0-0.3); Eosinophils Percent Auto 4.6 % (0-4.4); Hematocrit 23.6 % (42.0-52.0); Immature Granulocyte Absolute 0.32 K/mm3 (0.00-0.031); Immature Granulocyte Percent A 5.1 % (0-0.5); Lymphocytes Percent Auto 17.6 % (18.3-44.2); Mean Corpuscular HGB Conc 29.2 g/dl (32-36); Mean Corpuscular Hemoglobin 28.6 pg (26-34); Mean Corpuscular Volume 97.9 fl (80-100); Mean Platelet Volume 10.7 fl (7.4-10.4); Monocytes Absolute Auto 0.7 K/mm3 (0.1-0.6); Monocytes Percent Auto 10.4 % (2.6-8.5); Neutrophils Absolute Auto 3.9 K/mm3 (1.3-6.7); Platelet Count Result 306 k/mm3 (150-375); Red Blood Count 2.41 M/mm3 (4.6-6.20); White Blood Count 6.3 K/mm3 (4.5-10.0)
[2019-08-17] MEDS: IPRATROPIUM BR 0.02% INH SOLN 0.5 MG/2.5 ML VIAL INHALATION ×4 (02:14→19:26)
[2019-08-17] MEDS: ALBUTEROL SULFATE NEB 2.5 MG/0.5 ML INH INHALATION ×4 (02:14→19:26)
[2019-08-17 02:42] LABS: Hemoglobin 6.9 g/dL (14.0-18.0)
[2019-08-17 02:53] LABS: Albumin Level 3.1 g/dL (3.5-5.1); Blood Urea Nitrogen 55 mg/dL (9-20); Calcium 8.4 mg/dL (8.4-10.2); Carbon Dioxide 33 mmol/L (22-30); Chloride 104 mmol/L (98-107); Estimated CRCL calculation 44 ml/min; Estimated Glomerular Filt Rate 30; Glucose 159 mg/dL (75-110); Lactate Dehydrogenase 352 U/L (313-618); Magnesium 2.2 mg/dL (1.6-2.3); Phosphorus 4.3 mg/dL (2.5-4.5); Potassium 5.7 mmol/L (3.4-5.0); Sodium 140 mmol/L (137-145)
[2019-08-17 03:23] LABS: Cortisol Random 8.37 ug/dL
--- NOTE | 2019-08-17 05:42 | PC.NURSE ---
ATTEMPTING TO GET [facility] FOR PERMISSION TO GIVE BLOOD TRANSFUSION. MESSAGE LEFT
[2019-08-17] MEDS: SODIUM CHLORIDE 0.9% IV 250 ML 30 ML IV CONT (07:05)
[2019-08-17] MEDS: TRAMADOL HCL 50 MG TABLET PO (08:06)
[2019-08-17] MEDS: FAMOTIDINE 20 MG/2 ML VIAL IV PUSH (08:08)
[2019-08-17] MEDS: AMLODIPINE BESYLATE 5 MG TABLET 10 MG PO (08:08)
[2019-08-17] MEDS: SERTRALINE HCL 50 MG TABLET 200 MG PO (08:09)
[2019-08-17] MEDS: FOLIC ACID 1 MG TABLET PO (08:09)
[2019-08-17] MEDS: NYSTATIN OINTMENT 15 GM TUBE 1 APPLIC TOPICAL ×2 (08:11→21:55)
[2019-08-17] MEDS: EUCERIN CREAM 120 GM JAR 1 APPLIC TOPICAL (08:12)
[2019-08-17 08:38] LABS: Folic Acid > 20.0 ng/mL (2.76->20)
[2019-08-17 08:50] LABS: Iron 40 ug/dL (49-181)
[2019-08-17 08:56] LABS: Vancomycin Trough 12.5 ug/mL (10.0-20.0)
[2019-08-17 08:59] LABS: Percent Iron Saturation 22 % (20-50)
[2019-08-17] MEDS: DORNASE ALFA INH SOLN 1 MG/ML 2.5 ML AMP 2.5 MG INHALATION (09:26)
[2019-08-17] MEDS: PREGABALIN 50 MG CAPSULE 200 MG PO ×2 (10:03→21:55)
[2019-08-17] MEDS: HEPARIN SODIUM 5,000 UNITS/ML VIAL 5000 UNITS SUB-Q ×2 (10:03→21:58)
[2019-08-17] MEDS: INSULIN ASPART (*BKC) 100 UNITS/ML SUB-Q (12:12)
[2019-08-17 13:33] LABS: Hematocrit 25.2 % (42.0-52.0); Hemoglobin 7.6 g/dL (14.0-18.0)
--- NOTE | 2019-08-17 16:39 | PM.PNNEP ---
Progress Note: A&P Assessment and Plan (1) Hyperkalemia: Code(s): E87.5 - Hyperkalemia Status: Acute Assessment and Plan: slow improvement noted was persistent in the last several days despite medical therapy on low K+ diet simply due to CKD disease progression?? testing to date (urine testing, aldosterone, renin...etc.) for evaluation of other possible causes so far negative: - hemolysis? - hypoaldosteronism? - type 4 RTA? - other? consider outpatient use of veltassa or lokelma if continues to persist trial of adding thiazide diuretic (i.e. chlorthalidone)?? (2) Chronic kidney disease, stage 3: Code(s): N18.3 - Chronic kidney disease, stage 3 (moderate) Status: Chronic Assessment and Plan: presumable due to diabetes and hypertension baseline creatinine per office records runs ~ 1.5 - 2.0mg/dl follow trend (3) Pneumonia: Qualifiers: Laterality: bilateral Lung location: lower lobe of lung Pneumonia type: due to unspecified organism Qualified Code(s): J18.9 - Pneumonia, unspecified organism Code(s): J18.9 - Pneumonia, unspecified organism Status: Acute Assessment and Plan: s/p treatment follow respiratory status (4) Gastroparesis: Code(s): K31.84 - Gastroparesis Status: Acute Assessment and Plan: presumed complication from diabetes continue conservative therapy (5) Urinary tract infection: Qualifiers: Hematuria presence: without hematuria Urinary tract infection type: site unspecified Qualified Code(s): N39.0 - Urinary tract infection, site not specified Code(s): N39.0 - Urinary tract infection, site not specified Status: Resolved Assessment and Plan: complicated by chronic little catheter complete course of antibiotics Subjective Date/time seen: 08/17/19 16:39 Potassium level continues to fluctuate in the last 24 hours requiring medical therapy although in general appears more stable; no apparent distress at this time per patient. 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; right BKA Skin: eczema changes noted Objective Data Vital Signs Vital Signs: Vital Signs Temp Pulse Resp BP Pulse Ox 08/17/19 14:00 36.6 C 80 20 134/45 L 96 08/17/19 13:53 78 20 08/17/19 13:48 75 20 08/17/19 12:00 83 08/17/19 10:40 36.2 C L 80 18 121/40 L 98 08/17/19 10:20 36.4 C L 81 20 128/32 L 96 08/17/19 09:33 79 20 08/17/19 09:30 91 08/17/19 09:26 77 20 08/17/19 09:20 36.2 C L 82 20 129/53 L 91 08/17/19 08:20 36.5 C 68 22 H 126/50 L 100 08/17/19 08:00 76 08/17/19 07:20 36.6 C 80 22 H 120/32 L 95 08/17/19 07:05 36.3 C L 80 20 133/48 L 98 08/17/19 05:56 36.6 C 80 22 H 111/46 L 96 08/17/19 04:00 78 08/17/19 02:26 76 20 08/17/19 02:16 74 20 08/17/19 00:00 83 08/16/19 22:00 36.6 C 87 20 127/49 L 90 08/16/19 20:35 82 20 08/16/19 20:25 79 20 08/16/19 20:00 86 Intake/Output Intake/Output: Intake & Output 08/14/19 08/15/19 08/16/19 08/17/19 23:59 23:59 23:59 23:59 Intake Total 540 1830 1460 830 Output Total 1350 1400 1650 900 Balance -810 430 -190 -70 Meds/Results Medications: Active Medications Generic Name Dose Route Start Last Admin Trade Name Freq PRN Reason Stop Dose Admin Acetaminophen 650 mg 08/13/19 17:37 08/14/19 21:45 Tylenol Tablet PO 650 mg Q4H PRN Administration Mild Pain or Fever Albuterol 2.5 mg 08/11/19 14:00 08/17/19 13:47 Albuterol Sulf Neb 2.5mg/0.5ml INHALATION 2.5 mg Q6HR
[2019-08-17] MEDS: TAMSULOSIN HCL 0.4 MG CAPSULE PO (17:24)
--- NOTE | 2019-08-17 17:52 | PM.IMPN ---
Progress Note: A&P Assessment and Plan (1) Anemia: Qualifiers: Anemia type: unspecified type Qualified Code(s): D64.9 - Anemia, unspecified Code(s): D64.9 - Anemia, unspecified Status: Acute Assessment and Plan: Hgb 9.7 on admission but dropped to 7.7 a few days later. Hgb has been stable mostly in the 7-8 range but this morning, Hgb dropped to 6.9 and transfusion 1U ordered. Hgb repeated and back to 7.6. Stool guaiac ordered. B12 and folate level normal. Iron studies more consistent with anemia of chronic disease. Suspect patient with chronic anemia related to his renal failure. No evidence of acute blood loss. Continue to monitor hemoglobin. (2) Hyperkalemia: Code(s): E87.5 - Hyperkalemia Status: Acute Assessment and Plan: Most likely result of acute on chronic kidney disease. Potassium still elevated at 5.7 this morning. Etiology unclear. Not felt related to medications. Probably related to his CKD. Continue low potassium diet. Continue to monitor. (3) Acute renal failure superimposed on stage 3 chronic kidney disease: Qualifiers: Acute renal failure type: unspecified Qualified Code(s): N17.9 - Acute kidney failure, unspecified; N18.3 - Chronic kidney disease, stage 3 (moderate) Code(s): N17.9 - Acute kidney failure, unspecified; N18.3 - Chronic kidney disease, stage 3 (moderate) Status: Acute Assessment and Plan: Creatinine up to 2.2 now. Per record here, baseline creatinine around 1.20. Suspect may be at a new baseline. Nephrology consulted and appreciate their input. (4) Pneumonia: Qualifiers: Laterality: bilateral Lung location: lower lobe of lung Pneumonia type: due to unspecified organism Qualified Code(s): J18.9 - Pneumonia, unspecified organism Code(s): J18.9 - Pneumonia, unspecified organism Status: Acute Assessment and Plan: Clinically improved. Chest x-ray late on 08/10/2019 with opacification of right lung probably combination of right lung postobstructive collapse from mucous plugging and pleural effusion but unable to quantify amount of superimposed right-sided pneumonia or edema. Repeat chest x-ray on 08/12/2019 with improvement of opacification of the right lung but still with bilateral disease. Sputum culture positive for MRSA. Has now completed IV vancomycin for an additional 7 days after positive sputum culture results but had been on since 08/01/2019. Remains on isolation. Down to 1L of oxygen. WBC remains normal. Continue Cornet therapy. Wean nebulizer treatments and stop Pulmozyme. Patient did have MBS on 08/03/2029 with recommendation for pureed diet with regular liquids. Continue to try to wean oxygen as tolerated. (5) Respiratory failure: Qualifiers: Chronicity: acute Respiratory failure complication: hypoxia and hypercapnia Qualified Code(s): J96.01 - Acute respiratory failure with hypoxia; J96.02 - Acute respiratory failure with hypercapnia Code(s): J96.90 - Respiratory failure, unspecified, unspecified whether with hypoxia or hypercapnia Status: Acute Assessment and Plan: Result of pneumonia. Now remaining on 1 L as noted above. As above. Wean oxygen as tolerated. (6) Constipation: Qualifiers: Constipation type: unspecified constipation type Qualified Code(s): K59.00 - Constipation, unspecified Code(s): K59.00 - Constipation, unspecified Status: Acute Assessment and Plan: KUB on 08/11/2019 with fecal impactation of distal colon and rectum with stool ball up to 9.3 cm. Appreciate input from GI. Has required multiple medications including MiraLax, Dulcolax, oral and rectal Kayexalate as well as lactulose enema for any significant result. Repeat KUB 08/15/19 with nonspecific bowel gas pattern but no obvious stool ball. Diarrhea resolved. Will resume MiraLax but continue to hold metoclop
[2019-08-17 19:47] LABS: Glucose Point of Care 136 (65-105)
[2019-08-17 19:47] LABS: Glucose Point of Care 142 (65-105)
[2019-08-17 19:47] LABS: Glucose Point of Care 206 (65-105)
[2019-08-17] MEDS: MELATONIN 3 MG TABLET PO (21:55)
[2019-08-17] MEDS: FAMOTIDINE 20 MG TABLET PO (21:58)
[2019-08-17 22:16] LABS: Glucose Point of Care 139 (65-105)
[2019-08-18] VITALS (9 sets, daily range): BP systolic 131; BP diastolic 46; PULSE 71–79; RESP 20; TEMP 36.4; O2SAT 93–98
[2019-08-18 05:15] LABS: Eosinophil Urine 1 % eos
[2019-08-18 06:25] LABS: Hematocrit 26.9 % (42.0-52.0); Mean Corpuscular HGB Conc 29.7 g/dl (32-36); Mean Corpuscular Hemoglobin 28.8 pg (26-34); Mean Corpuscular Volume 96.8 fl (80-100); Mean Platelet Volume 10.8 fl (7.4-10.4); Platelet Count Result 274 k/mm3 (150-375); Red Blood Count 2.78 M/mm3 (4.6-6.20); Red Cell Distribution Width 15.6 % (11.5-14.5); White Blood Count 7.9 K/mm3 (4.5-10.0)
[2019-08-18 06:38] LABS: Blood Urea Nitrogen 48 mg/dL (9-20); Calcium 8.4 mg/dL (8.4-10.2); Carbon Dioxide 33 mmol/L (22-30); Chloride 106 mmol/L (98-107); Estimated CRCL calculation 42 ml/min; Estimated Glomerular Filt Rate 28; Glucose 144 mg/dL (75-110); Sodium 141 mmol/L (137-145)
[2019-08-18] MEDS: IPRATROPIUM BR 0.02% INH SOLN 0.5 MG/2.5 ML VIAL INHALATION ×2 (08:05→15:06)
[2019-08-18] MEDS: ALBUTEROL SULFATE NEB 2.5 MG/0.5 ML INH INHALATION ×2 (08:05→15:06)
[2019-08-18 08:33] LABS: Glucose Point of Care 134 (65-105)
[2019-08-18] MEDS: FAMOTIDINE 20 MG TABLET PO (09:08)
[2019-08-18] MEDS: AMLODIPINE BESYLATE 5 MG TABLET 10 MG PO (09:08)
[2019-08-18] MEDS: FOLIC ACID 1 MG TABLET PO (09:08)
[2019-08-18] MEDS: SERTRALINE HCL 50 MG TABLET 200 MG PO (09:08)
[2019-08-18] MEDS: TRAMADOL HCL 50 MG TABLET PO (09:08)
[2019-08-18] MEDS: PREGABALIN 50 MG CAPSULE 200 MG PO (09:08)
[2019-08-18] MEDS: polyethylene glycoL 3350 17 GM POWD.PACK PO (09:08)
[2019-08-18] MEDS: EUCERIN CREAM 120 GM JAR 1 APPLIC TOPICAL (09:09)
[2019-08-18] MEDS: NYSTATIN OINTMENT 15 GM TUBE 1 APPLIC TOPICAL (09:09)
[2019-08-18] MEDS: HEPARIN SODIUM 5,000 UNITS/ML VIAL 5000 UNITS SUB-Q (09:09)
--- NOTE | 2019-08-18 09:38 | PM.DS ---
DS: Diagnosis Admitting Diagnosis Admitting Diagnosis: Sepsis, unspecified organism Discharge Diagnosis (1) Anemia: Qualifiers: Anemia type: unspecified type Qualified Code(s): D64.9 - Anemia, unspecified Code(s): D64.9 - Anemia, unspecified Status: Acute Assessment and Plan: Hgb 9.7 on admission but dropped to 7.7 a few days later. Hgb has been stable mostly in the 7-8 range but this morning, Hgb dropped to 6.9 and transfusion 1U ordered. Hgb repeated and back to 7.6 and up to 8.0 the following day. B12 and folate level normal. Iron studies more consistent with anemia of chronic disease. Suspect patient with chronic anemia related to his renal failure. No evidence of acute blood loss. (2) Hyperkalemia: Code(s): E87.5 - Hyperkalemia Status: Acute Assessment and Plan: Most likely result of acute on chronic kidney disease. Potassium better this morning at 5.0 that is improved from 5.7 yesterday and decreased without intervention. Continue low potassium diet. (3) Acute renal failure superimposed on stage 3 chronic kidney disease: Qualifiers: Acute renal failure type: unspecified Qualified Code(s): N17.9 - Acute kidney failure, unspecified; N18.3 - Chronic kidney disease, stage 3 (moderate) Code(s): N17.9 - Acute kidney failure, unspecified; N18.3 - Chronic kidney disease, stage 3 (moderate) Status: Acute Assessment and Plan: Creatinine runs mostly in the 2 range. Creatinine did drop to 1.20 but felt related to fluid overload. Nephrology consulted and confirmed baseline creatinine. Will plan to repeat labs after discharge with results to nephrology. (4) Pneumonia: Qualifiers: Laterality: bilateral Lung location: lower lobe of lung Pneumonia type: due to unspecified organism Qualified Code(s): J18.9 - Pneumonia, unspecified organism Code(s): J18.9 - Pneumonia, unspecified organism Status: Acute Assessment and Plan: Clinically improved. Chest x-ray late on 08/10/2019 with opacification of right lung probably combination of right lung postobstructive collapse from mucous plugging and pleural effusion but unable to quantify amount of superimposed right-sided pneumonia or edema. Repeat chest x-ray on 08/12/2019 with improvement of opacification of the right lung but still with bilateral disease. Sputum culture positive for MRSA. Has now completed IV vancomycin for an additional 7 days after positive sputum culture results but had been on since 08/01/2019. CXR on 08/16 showing patchy bilateral perihilar pneumonia with mild improvement on the left. Remains on isolation. Down to 1L of oxygen. WBC remains normal. Encouraged Cornet therapy. Had nebulizer treatments and Pulmozyme. Patient did have MBS on 08/03/2029 with recommendation for pureed diet with regular liquids. (5) Respiratory failure: Qualifiers: Chronicity: acute Respiratory failure complication: hypoxia and hypercapnia Qualified Code(s): J96.01 - Acute respiratory failure with hypoxia; J96.02 - Acute respiratory failure with hypercapnia Code(s): J96.90 - Respiratory failure, unspecified, unspecified whether with hypoxia or hypercapnia Status: Acute Assessment and Plan: Patient required mechanical ventilation for his PNA. SARS-CoV-2 PCR negative. ECHO showing normal Left ventricular systolic function with EF 60-65%. Able to be extubated and O2 weaned down to 1L.. (6) Constipation: Qualifiers: Constipation type: unspecified constipation type Qualified Code(s): K59.00 - Constipation, unspecified Code(s): K59.00 - Constipation, unspecified Status: Acute Assessment and Plan: KUB on 08/11/2019 with fecal impactation of distal colon and rectum with stool ball up to 9.3 cm. Appreciate input from GI. Has required multiple medications including MiraLax, Dulcolax, oral and recta
--- NOTE | 2019-08-18 10:02 | PM.PNNEP ---
Progress Note: A&P Assessment and Plan (1) Hyperkalemia: Code(s): E87.5 - Hyperkalemia Status: Acute Assessment and Plan: better today was persistent in the last several days despite medical therapy on low K+ diet suspect simply due to CKD disease progression... testing to date (urine testing, aldosterone, renin...etc.) for evaluation of other possible causes so far negative: - hemolysis - hypoaldosteronism - type 4 RTA - other consider outpatient use of veltassa or lokelma if continues to persist (2) Chronic kidney disease, stage 3: Code(s): N18.3 - Chronic kidney disease, stage 3 (moderate) Status: Chronic Assessment and Plan: presumable due to diabetes and hypertension baseline creatinine per office records runs ~ 1.5 - 2.0mg/dl follow trend (3) Pneumonia: Qualifiers: Laterality: bilateral Lung location: lower lobe of lung Pneumonia type: due to unspecified organism Qualified Code(s): J18.9 - Pneumonia, unspecified organism Code(s): J18.9 - Pneumonia, unspecified organism Status: Acute Assessment and Plan: s/p treatment follow respiratory status (4) Gastroparesis: Code(s): K31.84 - Gastroparesis Status: Acute Assessment and Plan: presumed complication from diabetes continue conservative therapy (5) Urinary tract infection: Qualifiers: Encounter type: subsequent encounter Indwelling urinary catheter type: indwelling urethral catheter Urinary tract infection type: catheter-associated UTI Qualified Code(s): T83.511D - Infection and inflammatory reaction due to indwelling urethral catheter, subsequent encounter; N39.0 - Urinary tract infection, site not specified Code(s): N39.0 - Urinary tract infection, site not specified Status: Resolved Assessment and Plan: complicated by chronic little catheter complete course of antibiotics Discussed case with Dr. Mullins. Will continue to follow -- not opposed to discharge from renal perspective. Subjective Date/time seen: 08/18/19 10:02 No apparent distress or complaints voiced this AM; appears to be doing fairly well; no events overnight; K+ better today by AM labs (without any intervention in the last 24 hours). 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; right BKA Skin: eczema changes present Objective Data Vital Signs Vital Signs: Vital Signs Temp Pulse Resp BP Pulse Ox 08/18/19 08:11 78 20 08/18/19 08:07 78 20 93 08/18/19 08:06 78 20 08/18/19 05:47 36.4 C L 75 20 131/46 L 98 08/18/19 04:00 76 08/18/19 00:00 79 08/17/19 22:00 36.2 C L 79 18 132/48 L 93 08/17/19 20:00 79 08/17/19 19:34 72 20 08/17/19 19:30 75 18 92 08/17/19 19:26 75 18 08/17/19 16:00 79 08/17/19 14:00 36.6 C 80 20 134/45 L 96 08/17/19 13:53 78 20 08/17/19 13:48 75 20 08/17/19 12:00 83 08/17/19 10:40 36.2 C L 80 18 121/40 L 98 08/17/19 10:20 36.4 C L 81 20 128/32 L 96 Intake/Output Intake/Output: Intake & Output 08/15/19 08/16/19 08/17/19 08/18/19 23:59 23:59 23:59 23:59 Intake Total 1830 1460 1330 120 Output Total 1400 1650 2125 1100 Balance 415 -197 -054 -172 Meds/Results Medications: Active Medications Generic Name Dose Route Start Last Admin Trade Name Freq PRN Reason Stop Dose Admin Acetaminophen 650 mg 08/17/19 19:02 Tylenol Tablet PO Q4H PRN Mild Pain 1-5 or Fever Albuterol 2.5 mg 08/17/19 20:00 08/18/19 08:05 Albuterol Sulf Neb 2.5mg/0.5ml INHALATION 2.5 mg [id number]
[2019-08-18 12:12] LABS: Glucose Point of Care 160 (65-105)
[2019-08-19 19:56] LABS: Haptoglobin 283 mg/dL (43-212)
[2019-08-21 11:35] LABS: PRA 0.54 ng/mL/h (0.25-5.82)
[2019-08-23 16:32] LABS: Chloride Rand Ur 61 mmol/L (32-290); Chloride/Creatinine Rand Ur 130 (23-275); Creatinine Random Urine 47 mg/dL (20-320)
== END 2019-08-18 16:09 | DRG 871 ==
LOC: ANHED 18:17 → ANH3MEDSUR 19:53 → ANHICU 23:02 → ANH2MED 08-05 07:49 → ANHICU 08-19 08:11
PROVIDERS: Family Medicine; Hospitalist; Internal Medicine; Internal Medicine Nephrology; Nurse Practitioner; Physician Assistant; Admitting Provider Family Medicine; Emergency Provider Emergency Medicine; PCP Internal Medicine; Visit Provider Internal Medicine
DX: A41.9 Sepsis, unspecified organism (principal); R65.21 Severe sepsis with septic shock; J18.9 Pneumonia, unspecified organism; J96.01 Acute respiratory failure with hypoxia; T83.511A Infection and inflammatory reaction due to indwelling urethral catheter, initial encounter; N39.0 Urinary tract infection, site not specified; I13.0 Hypertensive heart and chronic kidney disease with heart failure and stage 1 through stage 4 chronic kidney disease, or unspecified chronic kidney disease; Z16.24 Resistance to multiple antibiotics; I48.20 Chronic atrial fibrillation, unspecified; Z68.41 Body mass index [BMI] 40.0-44.9, adult; G93.40 Encephalopathy, unspecified; N17.9 Acute kidney failure, unspecified; Z20.828 Contact with and (suspected) exposure to other viral communicable diseases; I50.9 Heart failure, unspecified; B96.20 Unspecified Escherichia coli [E. coli] as the cause of diseases classified elsewhere; B95.62 Methicillin resistant Staphylococcus aureus infection as the cause of diseases classified elsewhere; E11.22 Type 2 diabetes mellitus with diabetic chronic kidney disease; N18.3 Chronic kidney disease, stage 3 (moderate); E11.42 Type 2 diabetes mellitus with diabetic polyneuropathy; G30.0 Alzheimer's disease with early onset; F02.80 Dementia in other diseases classified elsewhere, unspecified severity, without behavioral disturbance, psychotic disturbance, mood disturbance, and anxiety; N40.0 Benign prostatic hyperplasia without lower urinary tract symptoms; E11.65 Type 2 diabetes mellitus with hyperglycemia; E11.43 Type 2 diabetes mellitus with diabetic autonomic (poly)neuropathy; K31.84 Gastroparesis; E78.5 Hyperlipidemia, unspecified; E55.9 Vitamin D deficiency, unspecified; I25.10 Atherosclerotic heart disease of native coronary artery without angina pectoris; D63.1 Anemia in chronic kidney disease; J44.9 Chronic obstructive pulmonary disease, unspecified; L30.9 Dermatitis, unspecified; F32.9 Major depressive disorder, single episode, unspecified; K21.9 Gastro-esophageal reflux disease without esophagitis; E66.01 Morbid (severe) obesity due to excess calories; E87.5 Hyperkalemia; Z89.511 Acquired absence of right leg below knee; Z90.49 Acquired absence of other specified parts of digestive tract; Z87.891 Personal history of nicotine dependence
CPT/HCPCS: 31500; 36415; 36430; 36600; 70450; 71045; 74018; 80048; 80053; 80069; 80076; 80202; 80307; 81001; 82088; 82140; 82375; 82436; 82533; 82570; 82607; 82728; 82746; 82805; 82948; 83010; 83050; 83540; 83550; 83605; 83615; 83735; 83880; 84132; 84156; 84244; 84300; 84443; 84484; 85014; 85018; 85025; 85027; 85055; 85380; 85610; 85999; 86140; 86850; 86900; 86901; 86923; 87040; 87070; 87077; 87081; 87086; 87088; 87147; 87186; 87205; 87635; 87804; 92610; 92611; 93005; 93306; 94002; 94003; 94640; 94667; 94668; 96361; 96365; 96366; 96367; 96368; 96372; 96375; 97161; 99291; A9270; C1751; G0378; J0456; J0610; J0692; J0696; J1200; J1335; J1644; J1815; J1885; J1940; J2250; J3370; J7030; J7040; J7050; P9016; P9047; U0003